=== PATIENT | male | born 1965 | race Caucasian/White ===

== ENCOUNTER 2017-08-21 13:36 | Emergency (ER) | payer BC, SELFPAY ==
[2017-08-21 14:07] VITALS: BP 161/88; PULSE 95; RESP 20; TEMP 37.1; O2SAT 97; BMI 34.1
--- NOTE | 2017-08-21 14:48 | HMH.EDUTC ---
[facility] [place] Disposition Clinical Impression: Sinusitis Qualifiers: Sinusitis location: maxillary Chronicity: acute Recurrence: not specified as recurrent Qualified Code(s): J01.00 - Acute maxillary sinusitis, unspecified Disposition: Home, Self-Care Condition on Discharge: Good Additional Instructions: Meds as ordered Tylenol or ibuprofen as needed for pain or fever Follow-up with primary care this week If symptoms worsen or do not improve return or be seen in the ER Prescriptions: Azithromycin [Zithromax 250mg tab] 250 mg PO DIRECTED #6 tab Fluticasone Propionate [Flonase Allergy Relief NS] 1 spray NS DAILY 14 Days bot Time of Disposition: 14:57 Medical Decision Making Vital Signs: 08/21/17 14:07 Temperature 98.8 F Temperature Source Temporal Artery Scan Pulse Rate [Radial] 95 H Respiratory Rate 20 Blood Pressure [Right Arm] 161/88 Blood Pressure Mean [Right Arm] 112 Blood Pressure Source [Right Arm] Automatic Cuff Blood Pressure Position [Right Arm] Sitting 02 Sat by Pulse Oximetry 97 Oxygen Delivery Method Room Air - Alejo Inquiry Pt receiving controlled substance: No [facility] [place] HPI - General Chief complaint: Urgent Treatment Center Stated complaint: congestion cough sore throat Time Seen by Provider: 08/21/17 14:48 Mode of Arrival: Ambulatory Source of Information: Patient Limitations: No Limitations Description of Symptoms (Recalled from Triage Doc. by RN): PT STATES COUGH AND CONGESTION HEENT Symptoms (Recalled from RN notes): No Resp Symptoms (Recalled from RN notes): No Skin Symptoms (Recalled from RN notes): No MS Symptoms (Recalled from RN notes): No Functional Status (Recalled from RN notes): NA - History of Present Illness Provider Complaint: 89-year-old male presents today for sinus pressure, sinus congestion, and Alanis thick green sputum for a week and a half. - Related Data Previous Rx's Medication Instructions Recorded Azithromycin [Zithromax 250mg 250 mg PO DIRECTED #6 tab 08/21/17 tab] Fluticasone Propionate [Flonase 1 spray NS DAILY 14 Days bot 08/21/17 Allergy Relief NS] Allergies Allergy/AdvReac Type Severity Reaction Status Date / Time No Known Allergies Allergy Verified 08/21/17 14:11 - Worker's Comp Is this a Worker's Comp case?: No [facility] History I have reviewed the patient's past medical history: Yes - *Social History Smoking Status: Current every day smoker Tobacco Type: cigarettes Alcohol Intake: never - Psychiatric History Expresses thoughts of harming self/others: None Suicide Plan Description: No Plan ROS Obtained: Yes All systems reviewed & no additional complaints - Constitutional Constitutional: Reports system reviewed and no additional complaints, except as docu - Eyes Eyes: Reports system reviewed and no additional complaints, except as docu - ENT Ears, Nose, Mouth, and Throat: Reports system reviewed and no additional complaints, except as docu - Cardiovascular Cardiovascular: Reports system reviewed and no additional complaints, except as docu - Respiratory Respiratory: Yes system reviewed and no additional complaints, except as docu, Yes change in phlegm color, Yes chest congestion, Yes cough - Gastrointestinal Gastrointestingal: Reports: system reviewed and no additional complaints, except as docu - Musculoskeletal Musculoskeletal: Reports system reviewed and no additional complaints, except as docu - Integumentary/Breasts Skin/Breast: Reports system reviewed and no additional complaints, except as docu - Neurologic Neurologic: Reports system reviewed and no additional complaints, except as docu - Endocrine Endocrine: Reports system reviewed and no additional complaints, except as docu - Hematologic/Lymphatic Henatologic/Lymphatic: Reports system reviewed and no additional complaints, except as docu - Allergic/Immunologic Allergic/Immunologic: Reports system reviewed and no additional complaints,
--- NOTE | 2017-08-21 14:52 | ED_ITS ---
[facility] [place] Disposition Clinical Impression: Sinusitis Qualifiers: Sinusitis location: maxillary Chronicity: acute Recurrence: not specified as recurrent Qualified Code(s): J01.00 - Acute maxillary sinusitis, unspecified Disposition: Home, Self-Care Condition on Discharge: Good Additional Instructions: Meds as ordered Tylenol or ibuprofen as needed for pain or fever Follow-up with primary care this week If symptoms worsen or do not improve return or be seen in the ER Prescriptions: Azithromycin [Zithromax 250mg tab] 250 mg PO DIRECTED #6 tab Fluticasone Propionate [Flonase Allergy Relief NS] 1 spray NS DAILY 14 Days bot Time of Disposition: 14:57 Medical Decision Making Vital Signs: 08/21/17 14:07 Temperature 98.8 F Temperature Source Temporal Artery Scan Pulse Rate [Radial] 95 H Respiratory Rate 20 Blood Pressure [Right Arm] 161/88 Blood Pressure Mean [Right Arm] 112 Blood Pressure Source [Right Arm] Automatic Cuff Blood Pressure Position [Right Arm] Sitting 02 Sat by Pulse Oximetry 97 Oxygen Delivery Method Room Air - Alejo Inquiry Pt receiving controlled substance: No [facility] [place] HPI - General Chief complaint: Urgent Treatment Center Stated complaint: congestion cough sore throat Time Seen by Provider: 08/21/17 14:48 Mode of Arrival: Ambulatory Source of Information: Patient Limitations: No Limitations Description of Symptoms (Recalled from Triage Doc. by RN): PT STATES COUGH AND CONGESTION HEENT Symptoms (Recalled from RN notes): No Resp Symptoms (Recalled from RN notes): No Skin Symptoms (Recalled from RN notes): No MS Symptoms (Recalled from RN notes): No Functional Status (Recalled from RN notes): NA - History of Present Illness Provider Complaint: 89-year-old male presents today for sinus pressure, sinus congestion, and Alansi thick green sputum for a week and a half. - Related Data Previous Rx's Medication Instructions Recorded Azithromycin [Zithromax 250mg 250 mg PO DIRECTED #6 tab 08/21/17 tab] Fluticasone Propionate [Flonase 1 spray NS DAILY 14 Days bot 08/21/17 Allergy Relief NS] Allergies Allergy/AdvReac Type Severity Reaction Status Date / Time No Known Allergies Allergy Verified 08/21/17 14:11 - Worker's Comp Is this a Worker's Comp case?: No [facility] History I have reviewed the patient's past medical history: Yes - *Social History Smoking Status: Current every day smoker Tobacco Type: cigarettes Alcohol Intake: never - Psychiatric History Expresses thoughts of harming self/others: None Suicide Plan Description: No Plan ROS Obtained: Yes All systems reviewed & no additional complaints - Constitutional Constitutional: Reports system reviewed and no additional complaints, except as docu - Eyes Eyes: Reports system reviewed and no additional complaints, except as docu - ENT Ears, Nose, Mouth, and Throat: Reports system reviewed and no additional complaints, except as docu - Cardiovascular Cardiovascular: Reports system reviewed and no additional complaints, except as docu - Respiratory Respiratory: Yes system reviewed and no additional complaints, except as docu, Yes change in phlegm color, Yes chest congestion, Yes cough - Gastrointestinal Gastrointestingal: Reports: system reviewed and no additional complaints, except as do
== END 2017-08-21 15:27 | disposition home or self-care (01) ==
PROVIDERS: Emergency Provider Nurse Practitioner Family
DX: J01.00 Acute maxillary sinusitis, unspecified (principal); F17.210 Nicotine dependence, cigarettes, uncomplicated
CPT/HCPCS: 99201

== ENCOUNTER 2017-10-03 11:31 | Emergency (ER) | payer BC, SELFPAY ==
[2017-10-03 12:51] VITALS: BP 152/71; PULSE 87; RESP 20; TEMP 36.6; O2SAT 95; BMI 32.8
--- NOTE | 2017-10-03 14:01 | HMH.EDUTC ---
[facility] [place] Disposition Clinical Impression: Upper respiratory virus Disposition: Home, Self-Care Condition on Discharge: Good Instructions: DI for Viral Upper Respiratory Infection -- Adult Additional Instructions: * No sign of bacterial infection. Likely viral. Virus can take 7-14 days to run their course * Nasal Saline to remove nasal drainage and help with nasal congestion. Hard to eat, drink, sleep with nasal congestion so important to keep nose cleaned out * Monitor Temp. Tylenol every 4 hours as needed no more then 5 times a day or 4000mg in 24 hours and/or ibuprofen every 6 hours as needed no more then 3200mg in 24 hours (as long as your primary care doctor has told you that it is ok to take both) for fever/aches/pain. ER if fever no less than 101 despite tylenol and ibuprofen * Encourage fluids, water, gatorade, powerade, pedialyte if /toddler/child * warm salt water gargles * warm fluids * sore throat lozenges * sleep elevated * humidifier/vaporizer * Sudafed over the counter helps with head congestion. * flonase 2 sprays each nostril daily but may take 2-3 days to notice improvement with it. * Continue Nicholas KEBEDE since helping. Referrals: Juanito Cavanaugh [Primary Care Provider] - (IMMEDIATELY for new or worsening symptoms OR no noticeable improvement over the next 48-72 hours. 911 for difficulty breathing or swallowing.) Forms: Work/School Release Time of Disposition: 14:25 Medical Decision Making - Alejo Inquiry Pt receiving controlled substance: No Vital Signs: 10/03/17 12:51 10/03/17 14:23 Temperature 98 F 98 F Temperature Source Temporal Artery Scan Temporal Artery Scan Pulse Rate 87 Pulse Rate [Brachial] 87 Respiratory Rate 20 20 Blood Pressure 152/71 Blood Pressure [Right Arm] 152/71 Blood Pressure Mean [Right Arm] 98 Blood Pressure Source [Right Arm] Automatic Cuff Blood Pressure Position Sitting Blood Pressure Position [Right Arm] Sitting 02 Sat by Pulse Oximetry 95 Oxygen Delivery Method Room Air Room Air - Lab Data Lab results reviewed: Yes: I reviewed the patient's lab results. Lab Results 10/03/17 14:04: Influenza Type A Ag Negative, Influenza Type B Ag Negative [facility] [place] HPI - General Stated complaint: Poss Flu Time Seen by Provider: 10/03/17 14:01 Mode of Arrival: Ambulatory Source of Information: Patient Limitations: No Limitations Description of Symptoms (Recalled from Triage Doc. by RN): 2 days with head congestion, v/d, coughing at night, ribs hurt. HEENT Symptoms (Recalled from RN notes): Yes Resp Symptoms (Recalled from RN notes): Yes Skin Symptoms (Recalled from RN notes): No MS Symptoms (Recalled from RN notes): No Functional Status (Recalled from RN notes): na - History of Present Illness Provider Complaint: c/o I want to make sure not the flu . Cough, head congestion started last night. Worse this morning. Diarrhea and vomited yesterday. Tussin DM helping cough and advil helps aches. No known sick contacts. - Related Data Allergies Allergy/AdvReac Type Severity Reaction Status Date / Time No Known Allergies Allergy Verified 08/21/17 14:11 - Worker's Comp Is this a Worker's Comp case?: No [facility] History I have reviewed the patient's past medical history: Yes Medical History: Denies:: Asthma, Chronic Obstructive Pulmonary Disease (COPD), Diabetes Mellitus Type 1, Diabetes Mellitus Type 2, Hypertension Laterality Cases: Right: Other (elbow) - Social History Smoking Status: Current every day smoker Tobacco Type: cigarettes Alcohol Intake: never - Psychiatric History Expresses thoughts of harming self/others: None Suicide Plan Description: No Plan ROS Obtained: Yes Systems reviewed as appropriate & no additional complaints - Constitutional Constitutional: Reports as per HPI, Denies chills, Reports difficulty sleeping, Denies fever(s), Denies poor appetite - Eyes Eyes: Denies eye discharge, Denies itchy eyes - ENT Ears, Nose, Mouth,
--- NOTE | 2017-10-03 14:04 | ED_ITS ---
[facility] [place] Disposition Clinical Impression: Upper respiratory virus Disposition: Home, Self-Care Condition on Discharge: Good Instructions: DI for Viral Upper Respiratory Infection -- Adult Additional Instructions: * No sign of bacterial infection. Likely viral. Virus can take 7-14 days to run their course * Nasal Saline to remove nasal drainage and help with nasal congestion. Hard to eat, drink, sleep with nasal congestion so important to keep nose cleaned out * Monitor Temp. Tylenol every 4 hours as needed no more then 5 times a day or 4000mg in 24 hours and/or ibuprofen every 6 hours as needed no more then 3200mg in 24 hours (as long as your primary care doctor has told you that it is ok to take both) for fever/aches/pain. ER if fever no less than 101 despite tylenol and ibuprofen * Encourage fluids, water, gatorade, powerade, pedialyte if /toddler/ child * warm salt water gargles * warm fluids * sore throat lozenges * sleep elevated * humidifier/vaporizer * Sudafed over the counter helps with head congestion. * flonase 2 sprays each nostril daily but may take 2-3 days to notice improvement with it. * Continue Nicholas KEBEDE since helping. Referrals: Juanito Cavanaugh [Primary Care Provider] - (IMMEDIATELY for new or worsening symptoms OR no noticeable improvement over the next 48-72 hours. 911 for difficulty breathing or swallowing.) Forms: Work/School Release Time of Disposition: 14:25 Medical Decision Making - Alejo Inquiry Pt receiving controlled substance: No Vital Signs: 10/03/17 12:51 10/03/17 14:23 Temperature 98 F 98 F Temperature Source Temporal Artery Scan Temporal Artery Scan Pulse Rate 87 Pulse Rate [Brachial] 87 Respiratory Rate 20 20 Blood Pressure 152/71 Blood Pressure [Right Arm] 152/71 Blood Pressure Mean [Right Arm] 98 Blood Pressure Source [Right Arm] Automatic Cuff Blood Pressure Position Sitting Blood Pressure Position [Right Arm] Sitting 02 Sat by Pulse Oximetry 95 Oxygen Delivery Method Room Air Room Air - Lab Data Lab results reviewed: Yes: I reviewed the patient's lab results. Lab Results 10/03/17 14:04: Influenza Type A Ag Negative, Influenza Type B Ag Negative [facility] [place] HPI - General Stated complaint: Poss Flu Time Seen by Provider: 10/03/17 14:01 Mode of Arrival: Ambulatory Source of Information: Patient Limitations: No Limitations Description of Symptoms (Recalled from Triage Doc. by RN): 2 days with head congestion, v/d, coughing at night, ribs hurt. HEENT Symptoms (Recalled from RN notes): Yes Resp Symptoms (Recalled from RN notes): Yes Skin Symptoms (Recalled from RN notes): No MS Symptoms (Recalled from RN notes): No Functional Status (Recalled from RN notes): na - History of Present Illness Provider Complaint: c/o I want to make sure not the flu . Cough, head congestion started last night. Worse this morning. Diarrhea and vomited yesterday. Tussin DM helping cough and advil helps aches. No known sick contacts. - Related Data Allergies Allergy/AdvReac Type Severity Reaction Status Date / Time No Known Allergies Allergy Verified 08/21/17 14:11 - Worker's Comp Is this a Worker's Comp case?: No [facility] History I have reviewed the patient's past medical history: Yes Medical History: Denies:: Asthma, Chronic Obstructive Pulmonary Disease (COPD), Diabetes Mellitus Type 1, Diabetes Mellitus Type 2, Hy
[2017-10-03 14:19] LABS: UTC Influenza A Antigen Negative (Negative); UTC Influenza B Antigen Negative (Negative)
[2017-10-03 14:23] VITALS: BP 152/71; PULSE 87; RESP 20; TEMP 36.6; O2SAT 95
== END 2017-10-03 14:28 | disposition home or self-care (01) ==
PROVIDERS: Emergency Provider Nurse Practitioner Family; PCP Internal Medicine
DX: J06.9 Acute upper respiratory infection, unspecified (principal)
CPT/HCPCS: 87804; 99202

== ENCOUNTER → 2021-02-12 08:27 | Outpatient (CLI) | payer BC, SELFPAY ==
--- NOTE | 2021-02-12 | CA_ITS ---
APPROVED REPORT Exam: Exercise Treadmill Technologist: Elizabeth Ramos, Ht: 5 ft 7 in Wt: 193 lbs BSA: 1.99 m2 HR: 72 bpm BP: 144/85 mmHg Medical History Medications: Lisinopril,,,,, CHOLESTEROL MED,,,,, XIGDUOxr,,,,, Stress Test Details Test: [place] HR Resting HR: 87 bpm Max Heart Rate (APMHR): 167.876179 bpm Max HR Achieved: 181 bpm Target HR (85% APMHR): 141.671567 bpm % of APMHR: 108.38 Recovery HR: 114 bpm BP Resting BP: 148/91 mmHg Max BP: 179/92 mmHg Recovery BP: 149.0/86.0 mmHg ECG Clinical Reason for Termination: Fatigue Exercise duration: 09:24 min Highest Stage Achieved: Exercise capacity: 10.1 METs Stress ECG Conclusion 9:24 Minutes 10.1 MET's Max HR 181 % of PM 122 Test stopped due to leg fatigue Symptoms: No CP Arrhythmias/Ectopy: None ST-T Changes: <1.5mm ST Segment changes Conclusion: Negative stress. No imaging Test Summary REST . . . . . . . Protocol changed to Manual Treadmill REST . . . . . . . Sitting REST . . . . . . . Standing REST 03:24 0.0 0.8 87 . 148/ 91 . . Stage 1 . . . . . . . Stage held Stage 1 . . . . . . . Protocol changed to [place] Stage 1 01:00 10.0 1.7 97 . . . . Stage 1 02:00 10.0 1.7 118 . . . . Stage 1 03:00 10.0 1.7 122 . 142/ 92 . . Stage 1 03:20 10.0 1.7 127 . 142/ 92 . . Stage 2 01:00 12.0 2.5 140 . . . . Stage 2 02:00 12.0 2.5 150 . . . . Stage 2 02:49 12.0 2.5 151 . 150/ 90 . . Stage 3 01:00 14.0 3.4 161 . . . . Stage 3 02:00 14.0 3.4 166 . . . . Stage 3 02:51 14.0 3.4 169 . 156/ 92 . . Stage 4 . . . . . . . Stage resumed Stage 4 00:24 16.0 4.2 173 . . . Stop exercise at 09:24 RECOVERY 01:00 0.0 0.0 160 . . . . RECOVERY 02:00 0.0 0.0 134 . . . . RECOVERY 03:00 0.0 0.0 119 . 179/ 92 . . RECOVERY 04:00 0.0 0.0 112 . 149/ 86 . . RECOVERY 04:10 0.0 0.0 108 . 149/ 86 . . Electronically signed by : Avery Pearson, 02/13/2021 15:20:54
== END ==
PROVIDERS: PCP Internal Medicine; Visit Provider Family Medicine
DX: R07.2 Precordial pain (principal); R07.89 Other chest pain; R53.83 Other fatigue
CPT/HCPCS: 93270

== ENCOUNTER → 2021-03-01 09:12 | Outpatient (CLI) | payer BC, SELFPAY ==
[2021-03-01 10:26] LABS: Chol/HDL Ratio 5.3 (1-3.5); Cholesterol 175 mg/dl (140-200); HDL Cholesterol 33 mg/dl (40-60)
[2021-03-01 10:37] LABS: Direct LDL Cholesterol 64.12 mg/dL (100-129)
[2021-03-01 10:47] LABS: Triglycerides 605 mg/dl (30-150)
== END ==
PROVIDERS: Visit Provider Family Medicine
DX: E78.1 Pure hyperglyceridemia (principal)
CPT/HCPCS: 36415; 80061

== ENCOUNTER 2021-03-14 09:42 | Emergency (ER) | payer BC, SELFPAY ==
[2021-03-14 09:43] VITALS: BP 123/75; PULSE 88; RESP 18; TEMP 36.9; O2SAT 97; BMI 30.2
--- NOTE | 2021-03-14 10:00 | XR_ITS ---
PROCEDURE INFORMATION: Exam: XR Chest Exam date and time: 03/14/2021 10:00 AM Age: 55 years old Clinical indication: Cough; Additional info: Cough, fever TECHNIQUE: Imaging protocol: XR of the chest. Views: 2 views. COMPARISON: No relevant prior studies available. FINDINGS: Lungs: Patchy airspace opacities bilaterally, compatible with multifocal pneumonia. Pleural spaces: Unremarkable. No pleural effusion. No pneumothorax. Heart/Mediastinum: Unremarkable. No cardiomegaly. Bones/joints: Unremarkable. IMPRESSION: Patchy airspace opacities bilaterally, compatible with multifocal pneumonia.
[2021-03-14 10:05] VITALS: BP 123/75; PULSE 94; O2SAT 92
[2021-03-14 10:16] VITALS: BP 124/77; PULSE 99; O2SAT 92
--- NOTE | 2021-03-14 10:19 | HMH.EDGENADL ---
ED Disposition Clinical Impression: Pneumonia due to COVID-19 virus Disposition: Home, Self-Care Condition on Discharge: Good Instructions: DI for COVID-19 (Suspected or Confirmed ) Prescriptions: Codeine Phosphate/Guaifenesin [Guaifen-Codeine 100-10 mg/5 ml] 5 ml PO Q6 #150 liquid Transmission Status: Received by [id number] Albuterol Sulfate [Proair Hfa] 1 puff IH Q6 #1 [email or web address] Transmission [facility]: [id number] Referrals: Juanito Ying MD [Primary Care Provider] - - Critical Care Critical Care Time: No Attestation: On 03/14/21, the high probability of a clinically significant, sudden or life threatening deterioration of the following system(s) required my full and direct attention, intervention and personal management. The time I documented below is in addition to time spent performing reported procedures but includes the following listed in this critical care notation. Medical Decision Making - Medical Records Medical records reviewed: Yes: I reviewed the patient's medical records. - Alejo Inquiry Pt receiving controlled substance: No Vital Signs: 03/14/21 09:43 03/14/21 10:05 03/14/21 10:16 Temperature 98.5 F Temperature Source Oral Pulse Rate 94 H 99 H Pulse Rate [Right] 88 Respiratory Rate 18 Blood Pressure 123/75 124/77 Blood Pressure [Right Radial Artery] 123/75 Blood Pressure Mean [Right Radial Artery] 91 02 Sat by Pulse Oximetry 97 92 L 92 L Oxygen Delivery Method Room Air - Lab Data Lab Results 03/14/21 10:32: SARS-CoV-2 (PCR) Detected A, Influenza A Untype (PCR) Not detected, Influenza Type B (PCR) Not detected Orders (Tests/Meds): ED MEDICATIONS Discontinued Medications Generic Name Dose Route Start Last Admin Trade Name Freq PRN Reason Stop Dose Admin Guaifenesin 5 ml 03/14/21 10:00 03/14/21 10:41 Guaifenesin/Dextromethorphan 200mg/20mg 10ml Udc PO 03/14/21 10:01 5 ml ONCE ONE Administration - Radiology Data #1 Image(s): Chest Image Reviewed: Yes I reviewed the patient's radiology results, Yes I reviewed the patient's radiology image, Yes I have reviewed radiologist's interpretation IMPRESSION: Patchy airspace opacities bilaterally, compatible with multifocal pneumonia. - Reevaluation(s) Time: 11:38 Reevaluation #1: Patient did test positive for coronavirus. X-ray is consistent with that. At this time, the patient not having any significant respiratory distress or hypoxia. Maintaining saturations well on room air. Patient will be provided steroid in the emergency department. I did instruct him to follow-up with his PCP for possible monoclonal antibody infusion. Patient needs to quarantine for 10 days per CDC guidelines. He was given strict return precautions for any change in respiratory status or worsening symptoms. Verbalized understanding. Medical Decision Narrative: 55-year-old male presented to the emergency department with some cough and fevers. Given the patient's symptoms, I am concerned for pneumonia or possible upper respiratory infection. Work-up will be initiated. Patient has no evidence of respiratory distress or hypoxia. General Adult HPI - General Chief complaint: Fever Stated complaint: cough Time Seen by Provider: 03/14/21 10:00 Mode of Arrival: Family Vehicle Limitations: No Limitations Description of Symptoms (Recalled from ER Triage Doc. by RN): Patient c/o cough, fever and general mylagia for the last week. Patient denies and abdominal pain, nausea or vomitting. Patient reports he is here today because of the worsening cough. Patient reports he took Motrin prior to arrival. - History of Present Illness HPI narrative: Is a 55-year-old male presented to the emergency department with some fevers, myalgias and cough. Patient states that he has had the symptoms for the last week or so. He states he started having some low-grade fevers of about 1
[2021-03-14 10:35] LABS: Influenza A, PCR Not Detected (NotDetected); Influenza B, PCR Not Detected (NotDetected)
[2021-03-14 11:03] LABS: Coronavirus 19, PCR Detected (NotDetected)
--- NOTE | 2021-03-14 11:07 | PC.NURSE ---
Positive covid results called by cheng bennett and given to PRASHANT ALLEN.
[2021-03-14 11:55] VITALS: BP 103/69; PULSE 77; RESP 20; TEMP 36.9; O2SAT 92
== END 2021-03-14 11:56 | disposition home or self-care (01) ==
PROVIDERS: Emergency Provider Emergency Medicine; PCP Family Medicine
DX: J12.82 Pneumonia due to coronavirus disease 2019 (principal); I10 Essential (primary) hypertension; E78.5 Hyperlipidemia, unspecified; Z79.899 Other long term (current) drug therapy
CPT/HCPCS: 71046; 99282; U0003

== ENCOUNTER → 2021-03-18 09:56 | Outpatient (CLI) | payer BC, SELFPAY ==
[2021-03-22 11:50] LABS: POC Glucose,Bedside 355 (70-110)
[2021-03-22 17:46] LABS: POC Glucose,Bedside 313 (70-110)
[2021-03-22 17:46] LABS: POC Glucose,Bedside 438 (70-110)
[2021-03-23 05:16] LABS: POC Glucose,Bedside 490 (70-110)
[2021-03-23 05:16] LABS: POC Glucose,Bedside 523 (70-110)
[2021-03-23 05:16] LABS: POC Glucose,Bedside 507 (70-110)
[2021-03-23 18:47] LABS: POC Glucose,Bedside 334 (70-110)
[2021-03-23 18:47] LABS: POC Glucose,Bedside 284 (70-110)
[2021-03-25 12:09] LABS: POC Glucose,Bedside 309 (70-110)
== END ==
PROVIDERS: PCP Family Medicine; Visit Provider Nurse Practitioner Family
DX: U07.1 COVID-19 (principal)
CPT/HCPCS: 82962

== ENCOUNTER 2021-03-18 10:29 | Inpatient (IN) | payer BC, SELFPAY ==
[2021-03-18] VITALS (23 sets, daily range): BP systolic 111–134; BP diastolic 60–90; PULSE 80–116; RESP 22–43; TEMP 36.3–37.8; O2SAT 76–95; BMI 30.2; BMI 27.6
--- NOTE | 2021-03-18 10:30 | PC.NURSE ---
PT PRESENTS TO ED FOR REGEN-COV INFUSION. PT TACHYPNEIC & TACHYCARDIC UPON ARRIVAL, INITIAL O2 SAT OF 75% ON ROOM AIR. PT THEN PUT ON 6L NC, WITH INCREASE IN O2 TO 88%. PLACED NON-REBREATHER AT 15L, O2 IMPROVED TO 94%. DR. COSTA NOTIFIED OF PT & CALLED RT FOR VAPOTHERM. RT STATED THEY ARE NOT ALLOWED TO USE VAPOTHERM IN ED DUE TO NO NEGATIVE PRESSURE ROOMS. DR. COSTA MADE AWARE. PT RECEPTED TO ED FOR ADMISSION PER DR. FUENTES.
--- NOTE | 2021-03-18 10:33 | HMH.EDGENADL ---
ED Disposition Clinical Impression: COVID-19, Acute respiratory failure with hypoxia Pneumonia Qualifiers: Pneumonia type: due to unspecified organism Laterality: bilateral Lung location: unspecified part of lung Qualified Code(s): J18.9 - Pneumonia, unspecified organism Disposition: Admitted As Inpatient Condition on Discharge: Fair Time of Disposition: 13:30 - Critical Care Critical Care Time: Yes Attestation: On , the high probability of a clinically significant, sudden or life threatening deterioration of the following system(s) required my full and direct attention, intervention and personal management. The time I documented below is in addition to time spent performing reported procedures but includes the following listed in this critical care notation. Total Critical Care Time: 35 Vital system(s) involved:: Respiratory Failure My critical care processes included: Assessment & monitoring of V/S, Initial and Re-exams, Data Review/Interpretation, Coordinating Care, Medication Orders and management, Documentation Medical Decision Making - Medical Records Medical records reviewed: Yes: I reviewed the patient's medical records. - Alejo Inquiry Pt receiving controlled substance: No Vital Signs: 03/18/21 10:29 03/18/21 10:30 03/18/21 10:35 Temperature 97.3 F L Temperature Source Oral Pulse Rate Pulse Rate [Right] 113 H Respiratory Rate 38 H Blood Pressure Blood Pressure [Right Arm] 127/86 Blood Pressure Mean Blood Pressure Mean [Right Arm] 99 02 Sat by Pulse Oximetry 76 L 88 L 94 L Oxygen Delivery Method Room Air Nasal Cannula Non-Rebreather Oxygen Flow Rate (LPM) 6 15 03/18/21 10:37 03/18/21 10:45 03/18/21 11:00 Temperature Temperature Source Pulse Rate 116 H 115 H 116 H Pulse Rate [Right] Respiratory Rate 32 H 33 H 41 H Blood Pressure 129/90 Blood Pressure [Right Arm] Blood Pressure Mean 98 Blood Pressure Mean [Right Arm] 02 Sat by Pulse Oximetry 94 L 94 L 90 L Oxygen Delivery Method Oxygen Flow Rate (LPM) 03/18/21 11:15 03/18/21 11:30 03/18/21 11:45 Temperature Temperature Source Pulse Rate 110 H 110 H 109 H Pulse Rate [Right] Respiratory Rate 30 H 41 H 32 H Blood Pressure 123/79 Blood Pressure [Right Arm] Blood Pressure Mean 91 Blood Pressure Mean [Right Arm] 02 Sat by Pulse Oximetry 93 L 91 L 91 L Oxygen Delivery Method Non-Rebreather Oxygen Flow Rate (LPM) 15 03/18/21 12:00 03/18/21 12:15 03/18/21 12:30 Temperature Temperature Source Pulse Rate 102 H 105 H Pulse Rate [Right] Respiratory Rate 42 H 40 H 40 H Blood Pressure 125/79 115/82 Blood Pressure [Right Arm] Blood Pressure Mean 93 89 Blood Pressure Mean [Right Arm] 02 Sat by Pulse Oximetry 94 L 93 L Oxygen Delivery Method Oxygen Flow Rate (LPM) 03/18/21 12:45 03/18/21 13:00 03/18/21 13:01 Temperature Temperature Source Pulse Rate 97 H 80 Pulse Rate [Right] Respiratory Rate 43 H 42 H 29 H Blood Pressure 111/61 Blood Pressure [Right Arm] Blood Pressure Mean 79 Blood Pressure Mean [Right Arm] 02 Sat by Pulse Oximetry 81 L Oxygen Delivery Method Oxygen Flow Rate (LPM) - Lab Data Lab results reviewed: Yes: I reviewed the patient's lab results. Lab Results 03/18/21 10:20: WBC 10.2, RBC 5.18, Hgb 16.1, Hct 46.4, MCV 89.6, MCH 31.2, MCHC 34.8, RDW 13.0, Plt Count 210, MPV 8.0, Neut % (Auto) 89.2 H, Lymph % (Auto) 5.7 L, [place] % (Auto) 4.8, Eos % (Auto) 0.0 L, Baso % (Auto) 0.3, Neut # (Auto) 9.1 H, Lymph # (Auto) 0.6 L, [place] # (Auto) 0.5, Eos # (Auto) 0.0, Baso # (Auto) 0.0, Total Counted 100, Neutrophils % (Manual) 86 H, Lymphocytes % (Manual) 9 L, Monocytes % (Manual) 4, Basophils % (Manual) 1.0, Platelet Estimate Normal, RBC Morphology Normal 03/18/21 10:20: Sodium 134 L, Potassium 4.3, Chloride 98, Carbon Dioxide 20 L, Anion Gap 20.3 H, BUN 25 H, Creatinine 0.80, Estimated Creat Clear 132, Es
--- NOTE | 2021-03-18 10:40 | XR_ITS ---
PROCEDURE: XR CHEST PORTABLE CLINICAL HISTORY: SOB Covid19 positive COMPARISON: CR XR CHEST 2V from 03/14/2021 FINDINGS: The cardiomediastinal silhouette and pulmonary vascularity are within normal limits. Ground-glass infiltrate once again noted in the right midlung and left lower lobe and right lower lobe consistent with bilateral Covid19 pneumonia which has progressed since the previous exam. No obvious effusion or pneumothorax. Degenerative changes of the shoulders IMPRESSION: Progression of bilateral multifocal pneumonia Dictated by: Pardeep Bullock MD 03/18/2021 11:18 Pardeep Bullock MD in [facility] 03/18/2021 11:18
--- NOTE | 2021-03-18 10:44 | PC.NURSE ---
SPOKE WITH PHARMAnel MCCONNELL, DO NOT GIVE REGEN-COV INFUSION SINCE PT IS BEING ADMITTED.
[2021-03-18 10:49] LABS: Basophils % 0.3 % (0.1-2.0); Hematocrit 46.4 % (42.0-52.0); Hemoglobin 16.1 g/dL (14.1-18.0); Lymphocytes # 0.6 K/mm3 (0.7-4.5); Lymphocytes % 5.7 % (10-50); Mean Corpuscular HGB Conc 34.8 g/dL (31.8-35.4); Mean Corpuscular Hemoglobin 31.2 pg (27.0-31.2); Mean Corpuscular Volume 89.6 fl (80-94); Monocytes # 0.5 K/mm3 (0.1-1.0); Monocytes % 4.8 % (1.7-9.3); Neutrophils # 9.1 K/mm3 (1.8-7.8); Neutrophils % 89.2 % (37.0-80.0); Platelet Count 210 K/mm3 (142-424); Red Blood Count 5.18 M/mm3 (4.60-6.20); White Blood Count 10.2 K/mm3 (4.8-10.8)
[2021-03-18 10:51] LABS: Chloride 98 mmol/L (98-107); Potassium 4.3 mmoL/L (3.5-5.1); Sodium 134 mmol/L (136-145)
[2021-03-18 10:52] LABS: MANUAL DIFFERENTIAL MANUAL DIFFERENTIAL (MANUAL DIFF)
[2021-03-18 10:53] LABS: Alanine Aminotransferase 24 U/L (12-78); Aspartate Amino Transferase 62 U/L (17-59); Blood Urea Nitrogen 25 mg/dl (9-20); Creatinine Clearance Estimated 132 mL/min (50-200); Estimated Glomerular Filt Rate 101 ml/min (>60); GFR (African American) 122 ML/MIN (>60)
[2021-03-18 10:54] LABS: Albumin Level 3.6 g/dl (3.5-5.0); Alkaline Phosphatase 73 U/L (38-126); Anion Gap 20.3 mEq/L (5-15); Bilirubin,Total 0.9 mg/dl (0.2-1.3); Calcium 8.5 mg/dl (8.4-10.2); Carbon Dioxide 20 mmol/L (22.0-30.0); Globulin 3.5 g/dL (1.3-3.2); Glucose 227 mg/dl (74-100); Total Protein,Serum 7.1 g/dl (6.3-8.2)
[2021-03-18 11:06] LABS: Troponin I 0.03 ng/ml (0.00-0.034)
[2021-03-18 11:11] LABS: Lymphocytes % 9 % (10-50); Monocytes % 4 % (2-9); Neutrophils % 86 % (42-76); Platelet Estimate Normal; RBC Morphology Normal; Total Cells Counted 100
--- NOTE | 2021-03-18 13:07 | PC.NURSE ---
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
--- NOTE | 2021-03-18 13:32 | PC.NURSE ---
IV ABX STARTED, PT TAKEN OFF NRB & PLACED ON 6L NC, WILL CONTINUE TO MONITOR.
--- NOTE | 2021-03-18 13:39 | PC.NURSE ---
PT MAINTAINING 02 AT 92% ON 6L NC, DR. COSTA AWARE & OK WITH.
--- NOTE | 2021-03-18 13:57 | PC.NURSE ---
O2 SATS DOWN TO 85%, NRB PLACED BACK ON PT.
--- NOTE | 2021-03-18 14:25 | PC.NURSE ---
REPORT GIVEN TO RUSSEL.
--- NOTE | 2021-03-18 14:41 | PC.NURSE ---
RUSSEL (PT'S ): [phone] PW: PATTY
--- NOTE | 2021-03-18 14:56 | PC.NURSE ---
Pt placed on vapotherm at this time.
--- NOTE | 2021-03-18 15:11 | HMH.HP ---
*Admission Date: 03/18/21 <Ping Clemente 03/18/21 15:17> *Chief complaint: shortness of breath <Ping Clemente 03/18/21 17:33> *History of present illness: Mr. Vitale is a 55-year-old male with a history of type 2 diabetes, hypertension, and hyperlipidemia. Patient did have a telehealth with Alicia Segovia on 03/16/2021 as a follow-up from an ER visit where he was diagnosed with Covid. He was weak and not eating and had had a dry cough. He was found to have pneumonia and she did set him up for a monoclonal antibody infusion. He presented to the emergency department for the infusion and upon arrival was found to be significantly hypoxic. He required a nonrebreather to maintain appropriate oxygen saturations. He was given Rocephin and Zithromax and admitted for further evaluation and treatment. Repeat chest x-ray did show progression of bilateral multifocal pneumonia. Of note, his has covid as well. <Ping Clemente 03/18/21 17:33> [facility] History I have reviewed the patient's past medical history: Yes <Ping Clemente 03/18/21 15:17> Medical History: Reports:: Diabetes Mellitus Type 2, Hyperlipidemia, Hypertension Denies:: Asthma, Chronic Obstructive Pulmonary Disease (COPD), Diabetes Mellitus Type 1 <Ping Clmeente 03/18/21 15:17> *Have you ever received a pneumonia vaccine?: No <Ping Clemente 03/18/21 15:17> *Have you received a flu vaccine this season?: No <Ping Clemente 03/18/21 15:17> Laterality Cases: Right: Other (ORIF Right Elbow Fracture) <Ping Clemente 03/18/21 15:17> Amputation: No <Ping Clemente 03/18/21 15:17> - *Social History Smoking Status: Current every day smoker <Ping Clemente 03/18/21 15:17> Tobacco Type: cigarettes <Ping Clemente 03/18/21 15:17> # Packs/Day (cigarettes): 1 <Ping Clemente 03/18/21 15:17> Alcohol Intake: never <Ping Clemente 03/18/21 15:17> *Occupational Status:: employed <Ping Clemente 03/18/21 15:17> Housing: house <ChynaPing 03/18/21 15:17> *[facility] in the last 8 weeks: [facility] Family Hx:: Diabetes, Hypertension <JakerajiPing 03/18/21 15:17> Review of Systems - Constitutional Reports body ache(s), Reports fever(s), Reports weakness <JakerajiPign - 03/18/21 17:33> - Eyes Denies blurry vision, Denies double vision [facility]33[facility] - ENT Denies nasal congestion, Denies sore throat <ChynaPing 03/18/21 17:33> - *Cardiovascular Reports shortness of breath, Denies chest pain <JakerajiPing - 03/18/21 17:33> - *Respiratory Reports cough, Reports shortness of breath [facility] - *Gastrointestinal Reports nausea, Denies abdominal pain, Denies loose stools, Denies vomiting <JakerajiPing - 03/18/21 17:33> - *Genitourinary Denies difficulty urinating, Denies painful urination [facility]33[facility] - *Musculoskeletal Reports body aches, Denies joint pain <ChynaPing 03/18/21 17:33> - *Neurologic Reports weakness, Denies headache(s), Denies dizziness <ChynaPing - 03/18/21 17:33> Meds Home Medications Medication Instructions Recorded Confirmed Type Albuterol Sulfate [Proair Hfa] 1 puff IH Q6 #1 hfa.aer.ad 03/14/21 03/18/21 Rx Codeine Phosphate/Guaifenesin 5 ml PO Q6 #150 liquid 03/14/21 03/18/21 Rx [Guaifen-Codeine 100-10 mg/5 ml] Dapagliflozin/Metformin HCl 1 tab PO DAILY 03/18/21 03/18/21 History [Xigduo Xr 10 mg-1,000 mg Tab] lisinopriL [Lisinopril] 10 mg PO BID 03/18/21 03/18/21 History <Juanito Ying - 03/18/21 23:23> Allergies Allergy/AdvReac Type Severity Reaction Status Date / Time No Known Allergies Allergy Verified 03/18/21 14:18 <Juanito Ying - 03/18/21 23:23> Exam Vital signs and Labs for Last 24 Hours: Temp Pulse Resp BP Pulse Ox 98.1 F 84 24 117/75 92 L 03/18/21 20:00 03/18/21 20:00 03/18/21 20:00 03/18/21 20:00 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
--- NOTE | 2021-03-18 16:39 | HMH.PULMCON ---
*Admission Date: 03/18/21 *Reason for consult:: Acute hypoxic respiratory failure, COVID-19 pneumonia *History of present illness: Mr. Vitale is a 55-year-old male never smoker, unvaccinated for COVID-19 pneumonia with a recent diagnosis of COVID-19 pneumonia emergent treatment center, discharged home on further follow-up 3 days later patient on treatment worsening respiratory symptoms presented to the ER during which she was needing high flow nasal cannula to maintain his oxygen saturations and was eventually admitted for further management and pulmonary was consulted [facility] History Medical History: Reports:: Diabetes Mellitus Type 2, Hyperlipidemia, Hypertension Denies:: Asthma, Chronic Obstructive Pulmonary Disease (COPD), Diabetes Mellitus Type 1 *Have you ever received a pneumonia vaccine?: No *Have you received a flu vaccine this season?: No Laterality Cases: Right: Other (ORIF Right Elbow Fracture) Amputation: No - *Social History Smoking Status: Current every day smoker Tobacco Type: cigarettes # Packs/Day (cigarettes): 1 Alcohol Intake: never *Occupational Status:: employed Housing: house Household Members: spouse *Travel in the last 8 weeks: None Family Hx:: Diabetes, Hypertension ROS - Cons Reports anorexia, Reports body ache(s) - Eyes Denies blind spots, Denies blurry vision - Card Reports shortness of breath, Reports shortness of breath with activity, Denies generalized swelling, Denies leg swelling - Resp Respiratory: Reports cough, Reports non-productive cough, Reports dyspnea on exertion, Denies excessive phlegm production, Denies pain on inspiration - GI Gastrointestingal: Denies: abdominal pain - Psych Reports abnormal sleep pattern Meds Home Medications Medication Instructions Recorded Confirmed Type Albuterol Sulfate [Proair Hfa] 1 puff IH Q6 #1 hfa.aer.ad 03/14/21 03/18/21 Rx Codeine Phosphate/Guaifenesin 5 ml PO Q6 #150 liquid 03/14/21 03/18/21 Rx [Guaifen-Codeine 100-10 mg/5 ml] Allergies Allergy/AdvReac Type Severity Reaction Status Date / Time No Known Allergies Allergy Verified 03/18/21 14:18 Exam - Constitutional Constitutional:: Present: no acute distress, comfortable - HENMT Exam HENMT: Present: normocephalic, moist mucous membranes - Eye Exam Eyes:: Present: normal appearance both eyes and related structures - Neck Exam Neck:: Present: normal visual inspection - Respiratory Exam Respiratory:: Present: able to speak in complete sentences, respiratory distress, rales - Cardiovascular Exam Cardiac:: Present: S1, S2 - GI Exam GI:: Present: soft - Skin Exam Skin: Present: warm, no rash - Neurological Exam Neurological: Present: alert, awake, normal cognition - Extremities Exam Extremities: Present: no cyanosis, no clubbing, no edema Internal Medicine - CN: Reslt - Labs CBC & Chem 7: 03/18/21 10:20 03/18/21 10:20 Labs: Short CBC 03/18/21 Range/Units 10:20 WBC 10.2 (4.8-10.8) K/mm3 Hgb 16.1 (14.1-18.0) g/dL Hct 46.4 (42.0-52.0) % Plt Count 210 (142-424) K/mm3 BMP 03/18/21 10:20 Sodium 134 L Potassium 4.3 Chloride 98 Carbon Dioxide 20 L BUN 25 H Creatinine 0.80 Glucose 227 H Calcium 8.5 Cardiac Enzymes 03/18/21 Range/Units 10:20 Troponin I 0.03 (0.00-0.034) ng/ml Liver Function 03/18/21 Range/Units 10:20 Total Bilirubin 0.9 (0.2-1.3) mg/dl AST 62 H (17-59) U/L ALT 24 (12-78) U/L Alkaline Phosphatase 73 (38-126) U/L Albumin 3.6 (3.5-5.0) g/dl Assessment and Plan (1) Pneumonia due to COVID-19 virus Status: Acute Category: Medical Code(s): U07.1 - COVID-19; J12.82 - Pneumonia due to coronavirus disease 2018 (2) Acute respiratory failure with hypoxia Status: Acute Category: Medical Code(s): J96.01 - Acute respiratory failure with hypoxia (3) Type 2 diabetes mellitus Status: Chronic Category: Medical Code(s): E11.9 - Type 2 diabetes
--- NOTE | 2021-03-18 16:43 | CT_ITS ---
PROCEDURE INFORMATION: Exam: CTA Chest With Contrast Exam date and time: 03/18/2021 4:43 PM Age: 55 years old Clinical indication: Patient HX: Hypoxia, covid positive. R/O pe. TECHNIQUE: Imaging protocol: Computed tomographic angiography of the chest with contrast. 3D rendering (Not supervised by radiologist): MIP and/or 3D reconstructed images were created by the technologist. Radiation optimization: All CT scans at this facility use at least one of these dose optimization techniques: automated exposure control; mA and/or kV adjustment per patient size (includes targeted exams where dose is matched to clinical indication); or iterative reconstruction. Contrast material: ISOVUE 370; Contrast volume: 70 ml; Contrast route: INTRAVENOUS (IV); COMPARISON: CR XR CHEST PORTABLE 03/18/2021 10:54 AM FINDINGS: Pulmonary arteries: No evidence of pulmonary embolus to the segmental level. Aorta: Unremarkable. No aortic aneurysm. No aortic dissection. Lungs: Patchy bilateral airspace disease worse in the posterior bases. Pleural spaces: Unremarkable. No pneumothorax. No pleural effusion. Heart: Unremarkable. No cardiomegaly. No pericardial effusion. Mediastinal space: Small hiatal hernia. Lymph nodes: Calcified mediastinal lymph nodes noted. Mildly prominent mediastinal lymph nodes. Liver: Moderate diffuse hypoattenuation in the liver. Bones/joints: Unremarkable. No acute fracture. Soft tissues: Unremarkable. IMPRESSION: 1. No evidence of pulmonary embolus 2. Moderate bilateral patchy airspace disease compatible with infection 3. Evidence of moderate hepatic steatosis
--- NOTE | 2021-03-18 18:32 | PC.NURSE ---
Addendum entered by Mercedes Snyder RN 03/18/21 19:28: med rec completed w/ external med list Original Note: Pt states he takes metformin for his DM2, but is unsure of the dosage.
--- NOTE | 2021-03-18 18:32 | PC.NURSE ---
Pt has done well since arriving to the floor. Speci cup put on pt's bedside table for sputum sample. Pt educated on benefits of incentive spirometer, IS placed at bedside. No other acute changes or complaints, will continue to monitor
[2021-03-18 18:40] LABS: C-Reactive Protein 180.5 mg/L (0-4)
[2021-03-18 19:59] LABS: Ferritin 3340 ng/ml (17.9-464)
[2021-03-18 20:06] LABS: Lactate Dehydrogenase 864 U/L (313-618)
[2021-03-19] VITALS (10 sets, daily range): BP systolic 116–142; BP diastolic 65–82; PULSE 68–80; RESP 18–24; TEMP 36.4–37.2; O2SAT 88–94; BMI 28.6
--- NOTE | 2021-03-19 02:57 | PC.NURSE ---
Pt is currently on Vapotherm 40 L 100%. Pt has slept at intervals this shift. Attempted to titrate vapotherm down to 40L 85% per RT @ 2300. Pt was titrated back up around 0100 due to desat during sleep. Pt noted to desat to upper 80s. VSS at this time. Medications administered per sep. Will continue to monitor.
[2021-03-19 06:32] LABS: Basophils % 0.3 % (0.1-2.0); Hematocrit 37.7 % (42.0-52.0); Lymphocytes # 0.8 K/mm3 (0.7-4.5); Lymphocytes % 11.5 % (10-50); Mean Corpuscular HGB Conc 34.8 g/dL (31.8-35.4); Mean Corpuscular Volume 89.1 fl (80-94); Mean Platelet Volume 8.9 fl (7.4-10.4); Monocytes # 0.3 K/mm3 (0.1-1.0); Neutrophils # 5.6 K/mm3 (1.8-7.8); Neutrophils % 84.2 % (37.0-80.0); Platelet Count 233 K/mm3 (142-424); Red Blood Count 4.23 M/mm3 (4.60-6.20); Red Cell Distribution Width 13.5 % (11.5-17.5); White Blood Count 6.7 K/mm3 (4.8-10.8)
[2021-03-19 06:36] LABS: Hemoglobin 13.1 g/dL (14.1-18.0)
[2021-03-19 06:55] LABS: Blood Urea Nitrogen 25 mg/dl (9-20); Calcium 7.4 mg/dl (8.4-10.2); Carbon Dioxide 24 mmol/L (22.0-30.0); Chloride 102 mmol/L (98-107); Creatinine Clearance Estimated 167 mL/min (50-200); Estimated Glomerular Filt Rate 141 ml/min (>60); GFR (African American) 171 ML/MIN (>60); Glucose 150 mg/dl (74-100); Sodium 136 mmol/L (136-145)
[2021-03-19 06:56] LABS: Alanine Aminotransferase 18 U/L (12-78); Albumin Level 2.8 g/dl (3.5-5.0); Alkaline Phosphatase 58 U/L (38-126); Aspartate Amino Transferase 53 U/L (17-59); Bilirubin,Direct 0.5 mg/dl (0.0-0.4); Bilirubin,Indirect 0.2 mg/dL (0.0-0.9); Bilirubin,Total 0.7 mg/dl (0.2-1.3); Bilirubin,Unconjugated 0.2 mg/dL (0.0-1.1); Total Protein,Serum 5.7 g/dl (6.3-8.2)
--- NOTE | 2021-03-19 08:57 | HMH.PULMPN ---
Internal Medicine - PN: Subj *Date: 03/19/21 *Time: 12:22 Interval history: No acute resp events overnight.Admits improvement in his resp distress Exam - Constitutional Constitutional:: Present: comfortable - HENMT Exam HENMT: Present: normocephalic, atraumatic - Eye Exam Eyes:: Present: normal appearance both eyes and related structures - Respiratory Exam Respiratory:: Present: able to speak in complete sentences, respiratory distress, rales - Cardiovascular Exam Cardiac:: Present: S1, S2 - GI Exam GI:: Present: soft, no hepatosplenomegaly - Skin Exam Skin: Present: warm, no rash, dry - Neurological Exam Neurological: Present: alert, awake, normal cognition - Extremities Exam Extremities: Present: no cyanosis, no clubbing, no edema Assessment and Plan (1) Pneumonia due to COVID-19 virus Status: Acute Category: Medical Code(s): U07.1 - COVID-19; J12.82 - Pneumonia due to coronavirus disease 2019 (2) Acute respiratory failure with hypoxia Status: Acute Category: Medical Code(s): J96.01 - Acute respiratory failure with hypoxia (3) Type 2 diabetes mellitus Status: Chronic Category: Medical Code(s): E11.9 - Type 2 diabetes mellitus without complications (4) Hypertension Status: Chronic Category: Medical Code(s): I10 - Essential (primary) hypertension (5) Hyperlipidemia Status: Chronic Category: Medical Code(s): E78.5 - Hyperlipidemia, unspecified - Assessment and plan all Dx Assessment and Plan for all problems:: #Acute on chronic hypoxic respiratory failure: #COVID-19 pneumonia: Diagnosed with COVID-19 pneumonia presently worsening respiratory distress. CTA performed no evidence of pulmonary embolism, showed bilateral diffuse groundglass opacities prominent right lower lobe consolidation Significant elevated inflammatory markers with CRP at 180.5, ferritin at 3340. Resp distress an O2 requirements improved. HFNC weaned to 80% and at 40L. Contnue to wean as tolerated Plan: Continue awake proning protocol Ceftriaxone and azithromycin along with remdesivir and dexamethasone 6 mg daily Barcitinib daily Sputum culture & nasal MRSA PCR Chemical DVT prophylaxis Thank you for involving pulmonary in this patient care. We will continue to follow.
--- NOTE | 2021-03-19 09:45 | HMH.PHAINT ---
verified home medication list using list from [facility]
--- NOTE | 2021-03-19 09:49 | HMH.PHAVTE ---
[facility] Pharmacy VTE Monitoring - Patient Demographics Admission date: 03/19/21 Report Date: 03/19/21 Time: 09:49 Allergies/Adverse Reactions: Patient Allergies No Known Allergies Allergy (Verified 03/18/21 14:18) Height: 1.7 m Weight: 82.809 kg Patient Problems: Current Active Problems Pneumonia due to COVID-19 virus (Acute) COVID-19 (Acute) Pneumonia (Acute) Acute respiratory failure with hypoxia (Acute) Type 2 diabetes mellitus (Chronic) Hypertension (Chronic) Hyperlipidemia (Chronic) - VTE Risk Labs: VTE Related Lab Results Hgb 13.1 g/dL (14.1-18.0) L D 03/19/21 06:18 Hct 37.7 % (42.0-52.0) L 03/19/21 06:18 Plt Count 233 K/mm3 (142-424) 03/19/21 06:18 BUN 25 mg/dl (9-20) H 03/19/21 05:30 Creatinine 0.60 mg/dl (0.66-1.25) L D 03/19/21 05:30 Estimated Creat Clear 167 mL/min (50-200) 03/19/21 05:30 Clinical Trial Participant: No - Prophylaxis VTE Prophylaxis Ordered?: Yes Types of VTE Prophylaxis: TEDS Knee High, Pharmacological Pharmacologic Type: Enoxaparin
--- NOTE | 2021-03-19 10:05 | HMH.ACPN2 ---
Internal Medicine - PN: Subj *Date: 03/19/21 *Time: 07:30 Interval history: He was able to get some sleep last night. No increased respiratory distress. No increased O2 requirements through the night. Unable to wean Vapotherm thus far. He was able to eat some breakfast. Exam Vital signs and Labs for Last 24 Hours: Temp Pulse Resp BP Pulse Ox 98.0 F 77 22 126/73 93 L 03/19/21 08:00 03/19/21 08:00 03/19/21 08:00 03/19/21 08:00 03/19/21 08:00 Laboratory Results - last 24 hr 03/18/21 10:20: WBC 10.2, RBC 5.18, Hgb 16.1, Hct 46.4, MCV 89.6, MCH 31.2, MCHC 34.8, RDW 13.0, Plt Count 210, MPV 8.0, Neut % (Auto) 89.2 H, Lymph % (Auto) 5.7 L, [place] % (Auto) 4.8, Eos % (Auto) 0.0 L, Baso % (Auto) 0.3, Neut # (Auto) 9.1 H, Lymph # (Auto) 0.6 L, [place] # (Auto) 0.5, Eos # (Auto) 0.0, Baso # (Auto) 0.0, Total Counted 100, Neutrophils % (Manual) 86 H, Lymphocytes % (Manual) 9 L, Monocytes % (Manual) 4, Basophils % (Manual) 1.0, Platelet Estimate Normal, RBC Morphology Normal 03/18/21 10:20: Sodium 134 L, Potassium 4.3, Chloride 98, Carbon Dioxide 20 L, Anion Gap 20.3 H, BUN 25 H, Creatinine 0.80, Estimated Creat Clear 132, Estimated GFR 101, Est GFR ( Amer) 122, Glucose 227 H, Calcium 8.5, Total Bilirubin 0.9, AST 62 H, ALT 24, Alkaline Phosphatase 73, Troponin I 0.03, Total Protein 7.1, Albumin 3.6, Globulin 3.5 H, Albumin/Globulin Ratio 1.0 L 03/18/21 18:15: Ferritin 3340 H, Lactate Dehydrogenase 864 H, C-Reactive Protein 180.5 H 03/19/21 05:30: Sodium 136, Potassium 4.0, Chloride 102, Carbon Dioxide 24, Anion Gap 14.0, BUN 25 H, Creatinine 0.60 L D, Estimated Creat Clear 167, Estimated GFR 141, Est GFR ( Amer) 171 D, Glucose 150 H D, Calcium 7.4 L 03/19/21 05:45: Total Bilirubin 0.7, Direct Bilirubin 0.5 H, Conjugated Bilirubin 0.0, Indirect Bilirubin 0.2, Unconjugated Bilirubin 0.2, AST 53, ALT 18, Alkaline Phosphatase 58, Total Protein 5.7 L, Albumin 2.8 L D 03/19/21 06:18: WBC 6.7 D, RBC 4.23 L, Hgb 13.1 L D, Hct 37.7 L, MCV 89.1, MCH 31.0, MCHC 34.8, RDW 13.5, Plt Count 233, MPV 8.9, Neut % (Auto) 84.2 H, Lymph % (Auto) 11.5, [place] % (Auto) 4.0, Eos % (Auto) 0.0 L, Baso % (Auto) 0.3, Neut # (Auto) 5.6, Lymph # (Auto) 0.8, [place] # (Auto) 0.3, Eos # (Auto) 0.0, Baso # (Auto) 0.0 I & O for Last 24 hours: Intake & Output 03/16/21 03/17/21 03/18/21 03/19/21 11:59 11:59 11:59 11:59 Intake Total 300 / 300 Output Total 1100 / 1100 Balance -800 / -800 Weight 193 lb 182 lb 9 oz Microbiology Reports for the Last 24 Hours: Microbiology 03/18/21 08:10 Sputum - Expectorated Sputum Gram Stain - Final Narrative: Slightly dyspneic with conversation but otherwise no acute distress. Breath sounds are diminished in the bases with few crackles. No wheezes. Abdomen is soft and nondistended with no tenderness. Extremities no edema. Assessment and Plan (1) Pneumonia due to COVID-19 virus Status: Acute Category: Medical Code(s): U07.1 - COVID-19; J12.82 - Pneumonia due to coronavirus disease 2019 (2) Acute respiratory failure with hypoxia Status: Acute Category: Medical Code(s): J96.01 - Acute respiratory failure with hypoxia (3) Type 2 diabetes mellitus Status: Chronic Category: Medical Code(s): E11.9 - Type 2 diabetes mellitus without complications (4) Hypertension Status: Chronic Category: Medical Code(s): I10 - Essential (primary) hypertension (5) Hyperlipidemia Status: Chronic Category: Medical Code(s): E78.5 - Hyperlipidemia, unspecified - Assessment and plan all Dx Assessment and Plan for all problems:: Continue per orders. Will follow with pulmonology.
--- NOTE | 2021-03-19 19:07 | PC.NURSE ---
Pt has rested majority of this shift w. no complaints. Pt is on 40L, 100% fio2 on vapotherm. Scattered wheexing noted per auscultation. Active bowel sounds in all 4 quads, no BM noted this shift. No other acute changes or complaints, will continue to monitor.
[2021-03-20] VITALS (14 sets, daily range): BP systolic 126–172; BP diastolic 76–87; PULSE 62–103; RESP 20–40; TEMP 36.4–37; O2SAT 90–96; BMI 28.8
[2021-03-20 04:49] LABS: Anion Gap 13.3 mEq/L (5-15); Blood Urea Nitrogen 21 mg/dl (9-20); Calcium 7.5 mg/dl (8.4-10.2); Carbon Dioxide 23 mmol/L (22.0-30.0); Chloride 104 mmol/L (98-107); Creatinine Clearance Estimated 200 mL/min (50-200); Estimated Glomerular Filt Rate 174 ml/min (>60); GFR (African American) 210 ML/MIN (>60); Glucose 172 mg/dl (74-100); Potassium 4.3 mmoL/L (3.5-5.1); Sodium 136 mmol/L (136-145)
[2021-03-20 05:05] LABS: Alanine Aminotransferase 17 U/L (12-78); Albumin Level 2.7 g/dl (3.5-5.0); Alkaline Phosphatase 59 U/L (38-126); Aspartate Amino Transferase 67 U/L (17-59); Bilirubin,Direct 0.5 mg/dl (0.0-0.4); Bilirubin,Indirect 0.2 mg/dL (0.0-0.9); Bilirubin,Total 0.7 mg/dl (0.2-1.3); Bilirubin,Unconjugated 0.2 mg/dL (0.0-1.1); Total Protein,Serum 5.8 g/dl (6.3-8.2)
--- NOTE | 2021-03-20 05:33 | PC.NURSE ---
Patient currently on Vapotherm 40L 100% he has had to add the rebreather several times as his O2 sats dropped to the low 80's with slow recovery. With vapotherm & rebreather patient O2 sats usually low to mid 90's. No s/s of acute distress noted this shift; call light within reach, bed at lowest level for safety; will continue to monitor.
--- NOTE | 2021-03-20 08:27 | XR_ITS ---
PROCEDURE INFORMATION: Exam: XR Chest Exam date and time: 03/20/2021 8:27 AM Age: 55 years old Clinical indication: Shortness of breath; Additional info: F/u covid pneumonia TECHNIQUE: Imaging protocol: XR of the chest. Views: 1 view. COMPARISON: CR XR CHEST PORTABLE 03/18/2021 10:54 AM FINDINGS: Lungs: There is worsening of the airspace disease on the right, no change on the left. Pleural spaces: Unremarkable. No pleural effusion. No pneumothorax. Heart/Mediastinum: Unremarkable. No cardiomegaly. Bones/joints: Unremarkable. IMPRESSION: There is worsening of the airspace disease on the right, no change on the left.
--- NOTE | 2021-03-20 08:29 | P.PN_ITS ---
Internal Medicine - PN: Subj *Date: 03/20/21 *Time: 08:29 Interval history: He is not requiring a Ventimask over the Vapotherm at maximum settings and satting in the low 90s. However with minimal exertion quickly desaturates with slow recovery. He denies chest pain. Exam Vital signs and Labs for Last 24 Hours: Temp Pulse Resp BP Pulse Ox 98.2 F 101 H 24 172/87 H 90 L 03/20/21 08:00 03/20/21 08:00 03/20/21 08:00 03/20/21 08:00 03/20/21 08:00 Laboratory Results - last 24 hr 03/20/21 04:00: Sodium 136, Potassium 4.3, Chloride 104, Carbon Dioxide 23, Anion Gap 13.3, BUN 21 H, Creatinine 0.50 L, Estimated Creat Clear 200, Estimated GFR 174, Est GFR ( Amer) 210 D, Glucose 172 H, Calcium 7.5 L 03/20/21 04:00: Total Bilirubin 0.7, Direct Bilirubin 0.5 H, Conjugated Bilirubin 0.0, Indirect Bilirubin 0.2, Unconjugated Bilirubin 0.2, AST 67 H D, ALT 17, Alkaline Phosphatase 59, Total Protein 5.8 L, Albumin 2.7 L I & O for Last 24 hours: Intake & Output 03/17/21 03/18/21 03/19/21 03/20/21 11:59 11:59 11:59 11:59 Intake Total 300 / 300 2160 / 2160 Output Total 1100 / 1100 1350 / 1350 Balance -800 / -800 810 / 810 Weight 193 lb 182 lb 9.001 oz 183 lb 6.793 oz Microbiology Reports for the Last 24 Hours: Microbiology 03/18/21 08:10 Sputum - Expectorated Sputum Gram Stain - Final Narrative: He is dyspneic with conversation. He is alert and oriented. Chest reveals coarse breath sounds with bilateral rales. Abdomen is soft and nondistended with no tenderness. Extremities no edema. Assessment and Plan (1) Pneumonia due to COVID-19 virus Status: Acute Category: Medical Code(s): U07.1 - COVID-19; J12.82 - Pneumonia due to coronavirus disease 2019 (2) Acute respiratory failure with hypoxia Status: Acute Category: Medical Code(s): J96.01 - Acute respiratory failure with hypoxia (3) Type 2 diabetes mellitus Status: Chronic Category: Medical Code(s): E11.9 - Type 2 diabetes mellitus without complications (4) Hypertension Status: Chronic Category: Medical Code(s): I10 - Essential (primary) hypert ension (5) Hyperlipidemia Status: Chronic Category: Medical Code(s): E78.5 - Hyperlipidemia, unspecified - Assessment and plan all Dx Assessment and Plan for all problems:: He is maxed out on the Vapotherm and Ventimask and may soon need mechanical ventilation. We will see how he responds to the duo nebs this morning. Repeat chest x-ray.
--- NOTE | 2021-03-20 17:50 | PC.NURSE ---
HE IS AOX4, ABLE TO MAKE NEEDS KNOWN TO STAFF, HE HAS REQUIRED HIGH FLOW O2 SUPPORT T/O THIS SHIFT, PT WAS PLACED ON BIPAP R/T RAPID RESPIRATORY RATE AND LOW O2. HIS HR ALSO INCREASED INTO THE 120'S WHEN HIS O2 DROPPED. BUT WAS ABLE TO COME OFF FOR LUNCH AND TOLERATED REMAINING ON VAPOTHERM FOLLOWING HIS MEAL. AT THIS TIME VAPOTHERM IS IN PLACE WITH SETTING OF 40LPM @ 100% WITH NON-REBREATHER AT 15LPM PLACED OVERTOP OF THAT, CURRENTLY O2 IS 90%, PT IS NOTED TO BE RESTING IN BED WITH EYES CLOSED. HE DOES DESAT WITH MINIMAL ACTIVITY. PT DID NOT HAVE MUCH OF AN APPETITE THIS SHIFT, NO NEEDS AT THIS TIME.
[2021-03-20 23:06] LABS: POC Glucose,Bedside 234 (70-110)
[2021-03-20 23:06] LABS: POC Glucose,Bedside 287 (70-110)
[2021-03-20 23:06] LABS: POC Glucose,Bedside 235 (70-110)
[2021-03-20 23:06] LABS: POC Glucose,Bedside 195 (70-110)
[2021-03-20 23:06] LABS: POC Glucose,Bedside 317 (70-110)
[2021-03-20 23:06] LABS: POC Glucose,Bedside 201 (70-110)
[2021-03-21] VITALS (12 sets, daily range): BP systolic 115–143; BP diastolic 65–90; PULSE 82–117; RESP 20–45; TEMP 36.3–37; O2SAT 86–96; BMI 28.7
[2021-03-21 07:37] LABS: Chloride 103 mmol/L (98-107); Sodium 139 mmol/L (136-145)
[2021-03-21 07:40] LABS: Alanine Aminotransferase 20 U/L (12-78); Aspartate Amino Transferase 60 U/L (17-59); Bilirubin,Unconjugated 0.5 mg/dL (0.0-1.1); Blood Urea Nitrogen 20 mg/dl (9-20); Carbon Dioxide 24 mmol/L (22.0-30.0); Creatinine Clearance Estimated 201 mL/min (50-200); Estimated Glomerular Filt Rate 174 ml/min (>60); GFR (African American) 210 ML/MIN (>60)
[2021-03-21 07:41] LABS: Albumin Level 2.9 g/dl (3.5-5.0); Alkaline Phosphatase 106 U/L (38-126); Bilirubin,Direct 0.3 mg/dl (0.0-0.4); Bilirubin,Indirect 0.5 mg/dL (0.0-0.9); Bilirubin,Total 0.8 mg/dl (0.2-1.3); Calcium 7.8 mg/dl (8.4-10.2); Glucose 156 mg/dl (74-100); Total Protein,Serum 5.6 g/dl (6.3-8.2)
--- NOTE | 2021-03-21 10:13 | HMH.ACPN2 ---
Internal Medicine - PN: Subj *Date: 03/21/21 *Time: 10:13 Interval history: No acute respiratory events overnight and he rested better. He looks and feels better this morning. He was able to eat some breakfast. He remains on Vapotherm with Ventimask. He used and tolerated BiPAP for short time yesterday morning but sats have remained 90-95% with Vapotherm and mask since then. He was able to eat some breakfast this morning. Exam Vital signs and Labs for Last 24 Hours: Temp Pulse Resp BP Pulse Ox 98.1 F 106 H 24 129/84 91 L 03/21/21 08:00 03/21/21 08:00 03/21/21 08:00 03/21/21 08:00 03/21/21 08:00 Laboratory Results - last 24 hr 03/19/21 16:56: POC Glucose 235 H 03/19/21 22:27: POC Glucose 287 H 03/20/21 05:12: POC Glucose 201 H 03/20/21 11:38: POC Glucose 195 H 03/20/21 16:10: POC Glucose 234 H 03/20/21 21:26: POC Glucose 317 H* 03/21/21 04:45: Sodium 139, Potassium 4.0, Chloride 103, Carbon Dioxide 24, Anion Gap 16.0 H, BUN 20, Creatinine 0.50 L, Estimated Creat Clear 201, Estimated GFR 174, Est GFR ( Amer) 210, Glucose 156 H, Calcium 7.8 L, Total Bilirubin 0.8, Direct Bilirubin 0.3, Conjugated Bilirubin 0.0, Indirect Bilirubin 0.5, Unconjugated Bilirubin 0.5, AST 60 H, ALT 20, Alkaline Phosphatase 106, Total Protein 5.6 L, Albumin 2.9 L I & O for Last 24 hours: Intake & Output 03/18/21 03/19/21 03/20/21 03/21/21 11:59 11:59 11:59 11:59 Intake Total 300 / 300 2160 / 2160 840 / 840 Output Total 1100 / 1100 1350 / 1350 2750 / 2750 Balance -800 / -800 810 / 810 -1910 / -1910 Weight 193 lb 182 lb 9.001 oz 183 lb 6.793 oz 183 lb Microbiology Reports for the Last 24 Hours: Microbiology 03/18/21 08:10 Sputum - Expectorated Sputum Gram Stain - Final 03/18/21 08:10 Sputum - Expectorated Sputum Sputum Culture - Preliminary 03/18/21 18:15 Nose - Nasal MRSA Culture - Final Negative Narrative: He is more alert this morning. No respiratory distress. Chest with coarse breath sounds. Scattered rales. Heart is regular. Abdomen is soft and nondistended with no tenderness. Extremities no edema. Assessment and Plan (1) Pneumonia due to COVID-19 virus Status: Acute Category: Medical Code(s): U07.1 - COVID-19; J12.82 - Pneumonia due to coronavirus disease 2019 (2) Acute respiratory failure with hypoxia Status: Acute Category: Medical Code(s): J96.01 - Acute respiratory failure with hypoxia (3) Type 2 diabetes mellitus Status: Chronic Category: Medical Code(s): E11.9 - Type 2 diabetes mellitus without complications (4) Hypertension Status: Chronic Category: Medical Code(s): I10 - Essential (primary) hypertension (5) Hyperlipidemia Status: Chronic Category: Medical Code(s): E78.5 - Hyperlipidemia, unspecified - Assessment and plan all Dx Assessment and Plan for all problems:: Continue per orders. Spoke to . Will follow with pulmonology.
--- NOTE | 2021-03-21 17:43 | PC.NURSE ---
Patient alert and oriented x 4. Sitting in recliner. Patient states he feels better being out of bed. Patients vitals signs are stable. Pulm-Oxygenation is currently 90% on the vapotherm and nonrebreather. Patient has been encouraged multiple times to use his incentive spirometer, has used it a few times but not consistently or independent of nursing cue's. GI- patients appetite has been diminished, has eaten less than 25% of each meal. Is still currently drinking fluids. No n/v/d. - patient has voided roughly 1000ml of pale yellow urine today. Skin is c/d/i New IV placed today above existing 20g in right ac. Patient was growing frustrated with IV pump alarming when he bent his arm. Issue is now resolved.
[2021-03-22] VITALS (34 sets, daily range): BP systolic 77–147; BP diastolic 33–103; PULSE 96–144; RESP 12–48; TEMP 36.6–37.1; O2SAT 63–97; BMI 28.8
--- NOTE | 2021-03-22 01:46 | XR_ITS ---
PROCEDURE INFORMATION: Exam: XR Chest Exam date and time: 03/22/2021 1:46 AM Age: 55 years old Clinical indication: Device placement; Ett placement (vent status); Additional info: Confirm intubation placement TECHNIQUE: Imaging protocol: XR of the chest. Views: 1 view. COMPARISON: CR XR CHEST PORTABLE 03/20/2021 9:33 AM FINDINGS: Tubes, catheters and devices: Patient is now intubated with the endotracheal tube tip at the martin. Lungs: Lungs demonstrate some interval progression of bilateral diffuse airspace consolidation intervally worsened on the left with silhouetting of the hemidiaphragm now. Cardiac silhouette and pulmonary vascularity are similar allowing for differences in technique. Pleural spaces: Component of pleural effusion may be present. Heart/Mediastinum: See Lungs finding. Bones/joints: Unremarkable. IMPRESSION: Endotracheal tube tip at the martin. Recommend slight withdrawal. Interval worsening of bilateral airspace process is now with silhouetting of the left hemidiaphragm which may represent a component of effusion. Findings were discussed with MARYSE LOVE at 03/22/2021 2:34 AM EDT.
--- NOTE | 2021-03-22 02:13 | HMH.RR ---
Acute Rapid Response Note - Subjective Date Responded: 03/22/21 Time Responded: 01:35 Provider Note: called for covid-19 pt with increased resp and dec sat despite bpap - Objective Findings: Vital Signs - Last 4 Hours Temperature 97.3 F L 03/21/21 15:36 Temperature Source Oral 03/21/21 15:36 Pulse Rate 96 H 03/21/21 23:02 Respiratory Rate 24 03/21/21 15:36 Blood Pressure 143/90 H 03/21/21 15:36 Blood Pressure Mean 107 03/21/21 15:36 Blood Pressure Source Automatic Cuff 03/21/21 15:36 Blood Pressure Position Supine 03/21/21 15:36 02 Sat by Pulse Oximetry 94 L 03/21/21 23:37 Oxygen Delivery Method 03/21/21 23:37 Oxygen Flow Rate (LPM) 40 03/21/21 23:02 My Orders Category Date Time Status Chest XR -- portable [XR chest portable] Stat Exams 03/22/21 01:46 Taken Rapid Response Exam - General General appearance: alert, in distress (Requiring nonrebreather) - Head Head exam: atraumatic - Eye Eye exam: Present: PERRL, EOMI. Absent: scleral icterus - ENT ENT exam: Present: mucous membranes dry - Neck Neck exam: Present: trachea midline - Respiratory Respiratory exam: Present: respiratory distress - Cardiovascular Cardiovascular exam: Present: tachycardia - Abdominal Exam Abdominal exam: Present: soft - Extremities Exam Extremities exam: Present: pedal edema - Neurological Exam Neurological exam: Present: other (obtunded w/o posturing ) - Skin Skin exam: Absent: rash RR Procedures/Assess/Plan - Bedside Intubation Time Out Performed: No Sedative: Versed Mg given: 4 Laryngoscope: Martines Tube size: 7.5 Tube uncuffed: No Secured location: teeth Placement confirmation: visualized tube passing through cords, equal breath sounds bilaterally, confirmation by capnometry Patient tolerated procedure intubation: well Intubation Complications: none - Assessment and plan all Dx Assessment and Plan for all problems:: pt required intubation and cxr showed sl to rt and will be pulled back and possible chf
[2021-03-22 02:46] LABS: Microscopic, Urine URINE MICROSCOPIC (MICROSCOPIC)
[2021-03-22 02:48] LABS: Appearance,Urine CLEAR (Clear); Bilirubin,Urine Negative (Negative); Blood, Urine 1+ (Negative); Color,Urine YELLOW (Yellow); Glucose,Urine (UA) TRACE (Negative); Ketones,Urine 3+ (Negative); Leukocyte Esterase,Urine Negative (Negative); Nitrate,Urine Negative (Negative); Protein,Urine 2+ (Negative); Specific Gravity, Urine >= 1.030 (1.005-1.030); Urobilinogen,Urine 0.2 EU/dl (0.2)
[2021-03-22 02:52] LABS: Amorphous Sediment,Urine 1+ /lpf; Squamous Epithelial Cell,Urine Occasional #/hpf (0-5); WBC,Urine Occasional #/hpf (0-3)
--- NOTE | 2021-03-22 02:58 | PC.NURSE ---
0123: SPOKE WITH DR. FUENTES. INFORMED HIM THAT PATIENT IS TACHYCARDIC, TACHYPNEIC AND THAT ATIVAN HAS NOT HELPED WITH RESPIRATORY EFFORT. INFORMED HIM O2 SAT REMSIN IN THE 60'S ON 100% FIO2 BIPAP. MD STATED TO CALL ED MD AND HAVE HIM INTUBATE PATIENT. 0124: TELMA, RN SPOKE WITH SIGNIFICANT OTHER AND INFORMED HER OF DECLINE IN PATIENT CONDITION AND THAT PATIENT WAS GOING TO BE INTUBATED. 0125: SPOKE WITH DR. LOVE, ED MD, AND INFORMED HIM THAT DR. FUENTES IS REQUESTING THAT HE COME INTUBATE PATIENT. WILL, R.T. NOTIFIED TO COME TO BEDSIDE WELL. 0140: DR. LOVE AT BEDSIDE. PATIENT POSITIONED FOR INTUBATION. 0142: 4MG IVP VERSED GIVEN PER DR. LOVE'S ORDER. 0145: PATIENT INTUBATED WITH 7.5 ETT 27 AT THE TEETH. COLOR CHANGE NOTED IN CO2 DETECTOR AND BILATERAL BREATH SOUNDS AUSCULTATED. STAT PCXR ORDERED. 0150: RADIOLOGY AT BEDSIDE. CXR DONE. 0200: PATIENT PLACED ON VENT WITH SETTINGS FOLLOWS A/C, FIO2:100%, TV:475, RR:20 PEEP:6 0202: PROPOFOL GTT STARTED PER DR. LOVE'S ORDER AT 30MCG/KG/MIN 0210: F/C ANCHORED AT THIS TIME. NG/OG ATTEMPTED BUT UNSUCCESSFUL AT THIS TIME. 0215: MANUAL BP LEFT ARM: 88/60, UNABLE TO OBTAIN MANUAL BP RIGHT ARM DUE TO IV SITES. 0217: PROPOFOL GTT DECREASED TO 10MCG/KG/MIN. DR. LOVE CALLED AND STATED TO PULL TUBE BACK 2 INCHES. ALSO ORDERD 40MGIVP LASIX X1 STAT. 0218: LASIX 40MG IVP GIVEN AT THIS TIME. WILL, R.T. AT BEDSIDE TO ASSIST MOVING TUBE BACK 2 INCHES. TUBE IS NOW 25 AT THE TEETH. 0220: PATIENT'S O2 SAT REMAINS 65-71%. END TIDAL CO2 DETECTOR HOOKED UP AND READING IS 26. PLACED PATIENT ON RIGHT SIDE. LUNG SOUNDS ARE DIMINISHED IN BILATERAL BASES. SCATTERED RHONCHI NOTED IN RIGHT AND LEFT UPPER LOBES. RIGHT UPPER LOBE SLIGHTLY DIMINISHED SOUNDING. 0311: WILL, R.T. AT BEDSIDE TO DRAW POST INTUBATION ABG.
[2021-03-22 03:24] LABS: ABG Base Excess -19.4 mmol/L (-2.4-2.3); ABG HCO3 12.3 mmhg (22.0-26.0); ABG Oxygen Saturation 66 % (90-100); ABG PO2 51.7 mmhg (80-100)
--- NOTE | 2021-03-22 03:29 | PC.NURSE ---
0015: PATIENT INCONTINENT OF URINE. CHANGED PATIENT AT THIS TIME. PATIENT EXTREMELY SOA. BIPAP IN PLACE. PATIENT TACHYPNEIC. INSTRUCTED PATIENT TO SLOW BREATHING.
[2021-03-22 03:37] LABS: Allen's Test Y; Oxygen 100 %; PEEP 8; Tidal Volume 450; Vent Rate 20
[2021-03-22 03:38] LABS: Source L/R
[2021-03-22 03:39] LABS: ABG PCO2 54.5 mmhg (35.0-45.0); ABG PH 6.97 mmol/L (7.35-7.45)
--- NOTE | 2021-03-22 04:37 | PC.NURSE ---
PT WAS TRANSFERRED FROM ICU VIA BED TO [facility] SURG FLOOR W/STAFF AT 7201
--- NOTE | 2021-03-22 05:51 | ECG_ITS ---
APPROVED REPORT Exam: Resting ECG HR:137 bpm ECG Measurements Heart Rate 137 AXES CA 272 P 54 QRSd 138 QRS -53 QT 360 T 44 QTc 543 Conclusion Sinus tachycardia with 1st degree AV block Right bundle branch block Left anterior fascicular block Bifascicular block Inferior infarct, age undetermined Abnormal ECG Electronically signed by : Avery Pearson MD 03/23/2021 12:08:39
[2021-03-22 05:56] LABS: ABG Base Excess -21.7 mmol/L (-2.4-2.3); ABG HCO3 11.7 mmhg (22.0-26.0); ABG Oxygen Saturation 80 % (90-100); ABG PO2 71.9 mmhg (80-100); ABG TCO2 13.7 mmhg (23-27)
[2021-03-22 05:57] LABS: Allen's Test Patient Unable; Oxygen 100% %; Source Right Radial
--- NOTE | 2021-03-22 05:59 | XR_ITS ---
PROCEDURE INFORMATION: Exam: XR Chest Exam date and time: 03/22/2021 5:59 AM Age: 55 years old Clinical indication: Other: Code 500 respiratory arrest; Patient HX: Covid PT intubated code 500 respirtatory arrest TECHNIQUE: Imaging protocol: XR of the chest. Views: 1 view. COMPARISON: CR XR CHEST PORTABLE 03/22/2021 1:53 AM FINDINGS: Tubes, catheters and devices: Endotracheal tube is identified with the tip projecting 2.3 cm above the martin. Lungs: Persistent heterogeneous pulmonary opacities. Pleural spaces: No significant pleural effusion. Heart/Mediastinum: Stable cardiomediastinal silhouette. Bones/joints: Stable osseous structures. IMPRESSION: Endotracheal tube in situ. Persistent heterogeneous pulmonary opacities.
[2021-03-22 06:00] LABS: ABG PCO2 65.7 mmhg (35.0-45.0); ABG PH 6.87 mmol/L (7.35-7.45)
[2021-03-22 06:06] LABS: Basophils # 0.3 K/mm3 (0-0.2); Basophils % 1.3 % (0.1-2.0); Lymphocytes # 2.7 K/mm3 (0.7-4.5); Monocytes # 0.8 K/mm3 (0.1-1.0)
[2021-03-22 06:13] LABS: Eosinophils % 0.1 % (0.1-12.0); Hematocrit 47.5 % (42.0-52.0); Hemoglobin 14.7 g/dL (14.1-18.0); Lymphocytes % 12.3 % (10-50); Mean Corpuscular HGB Conc 30.9 g/dL (31.8-35.4); Mean Corpuscular Hemoglobin 30.9 pg (27.0-31.2); Mean Platelet Volume 10.6 fl (7.4-10.4); Monocytes % 3.7 % (1.7-9.3); Neutrophils # 17.9 K/mm3 (1.8-7.8); Neutrophils % 82.5 % (37.0-80.0); Platelet Count 163 K/mm3 (142-424); Red Blood Count 4.76 M/mm3 (4.60-6.20); Red Cell Distribution Width 13.5 % (11.5-17.5)
[2021-03-22 06:19] LABS: White Blood Count 21.7 K/mm3 (4.8-10.8)
[2021-03-22 06:21] LABS: Chloride 102 mmol/L (98-107); MANUAL DIFFERENTIAL MANUAL DIFFERENTIAL (MANUAL DIFF)
[2021-03-22 06:22] LABS: Sodium 141 mmol/L (136-145)
[2021-03-22 06:24] LABS: Blood Urea Nitrogen 26 mg/dl (9-20)
[2021-03-22 06:25] LABS: Anion Gap 31.7 mEq/L (5-15); Calcium 7.5 mg/dl (8.4-10.2); Carbon Dioxide 14 mmol/L (22.0-30.0); Creatinine Clearance Estimated 56 mL/min (50-200); Estimated Glomerular Filt Rate 40 ml/min (>60); GFR (African American) 48 ML/MIN (>60); Glucose 324 mg/dl (74-100)
--- NOTE | 2021-03-22 06:33 | HMH.RR ---
Acute Rapid Response Note - Subjective Date Responded: 03/22/21 Time Responded: 05:45 Provider Note: code blue - pt had been prev intubated and has v fib and defib with pulse noted and bp - has tachycardia with prob a flutter given bolus cardizam and bicarb as pt was acidosis on abg with cxr showed et tube ok - Objective Findings: Vital Signs - Last 4 Hours Temperature 98.4 F 03/22/21 00:00 Temperature Source Axillary 03/22/21 00:00 Pulse Rate 144 H 03/22/21 02:00 Respiratory Rate 48 H 03/22/21 02:33 Blood Pressure 88/60 L 03/22/21 02:15 Blood Pressure Mean 69 03/22/21 02:15 Blood Pressure Source Manual Cuff/Auscultation 03/22/21 02:15 Blood Pressure Position Supine 03/22/21 02:15 02 Sat by Pulse Oximetry 63 L 03/22/21 02:00 Oxygen Delivery Method 03/22/21 03:00 Oxygen Flow Rate (LPM) 40 03/21/21 23:02 Lab Results for Past 12 Hours 03/22/21 05:57: WBC 21.7 H* D, RBC 4.76, Hgb 14.7, Hct 47.5, MCV 100.0 H, MCH 30.9, MCHC 30.9 L, RDW 13.5, Plt Count 163 D, MPV 10.6 H, Neut % (Auto) 82.5 H, Lymph % (Auto) 12.3, [place] % (Auto) 3.7, Eos % (Auto) 0.1, Baso % (Auto) 1.3, Neut # (Auto) 17.9 H, Lymph # (Auto) 2.7, [place] # (Auto) 0.8, Eos # (Auto) 0.0, Baso # (Auto) 0.3 H 03/22/21 05:51: Specimen Source Right radial, O2 % 100%, ABG pH 6.87 L*, ABG pCO2 65.7 H, ABG pO2 71.9 L, ABG HCO3 11.7 L, ABG Total CO2 13.7 L, ABG O2 Saturation 80 L*, ABG Base Excess -21.7 L, Pardeep Test Patient unable 03/22/21 03:23: Specimen Source L/r, O2 % 100, ABG pH 6.97 L*, ABG pCO2 54.5 H, ABG pO2 51.7 L, ABG HCO3 12.3 L, ABG Total CO2 14.0 L, ABG O2 Saturation 66 L*, ABG Base Excess -19.4 L, Pardeep Test Y, Vent Rate 20, Tidal Volume 450, PEEP 8 03/22/21 02:15: Urine Color Yellow, Urine Appearance Clear, Urine pH 6.0, Ur Specific [place] >= 1.030, Urine Protein 2+, Urine Glucose (UA) Trace, Urine Ketones 3+, Urine Blood 1+, Urine Nitrate Negative, Urine Bilirubin Negative, Urine Urobilinogen 0.2, Ur Leukocyte Esterase Negative, Urine RBC 3-5, Urine WBC Occasional, Ur Squamous Epith Cells Occasional, Amorphous Sediment 1+ My Orders Category Date Time Status Chest XR -- portable [XR chest portable] Stat Exams 03/22/21 01:46 Completed XR chest portable Stat Exams 03/22/21 05:59 Taken Basic Metabolic Panel Stat Lab 03/22/21 05:57 Received Complete Blood Count Auto Diff Stat Lab 03/22/21 05:57 Results Troponin I Stat Lab 03/22/21 05:57 Received UA [Urinalysis and Microscopic] Stat Lab 03/22/21 02:15 Completed ABG [Arterial Blood Gas] Stat RT 03/22/21 02:37 Ordered Arterial Blood Gas Stat RT 03/22/21 05:51 Completed ECG Request by /Sony Stat Y 03/22/21 05:51 Ordered - Radiology Findings #1 Xray Reviewed: Chest Image Reviewed: Yes I reviewed the patient's radiology image ED XR Results: Abnormal (covid-19 with et tube ) - ECG Data Tracing #1 Arrhythmias present: aflutter Ischemic changes: non-specific ST-T wave changes Rapid Response Exam - General General appearance: in distress (Requiring nonrebreather) - Head Head exam: atraumatic - Eye Eye exam: Present: other (pupils midpt but no reaction ) - ENT ENT exam: Present: other (intubated ) - Neck Neck exam: Present: trachea midline - Respiratory Respiratory exam: Present: respiratory distress, other (intubated ) - Cardiovascular Cardiovascular exam: Present: tachycardia - Abdominal Exam Abdominal exam: Present: soft - Extremities Exam Extremities exam: Present: pedal edema - Neurological Exam Neurological exam: Present: other (obtunded w/o posturing ) RR Procedures/Assess/Plan - Additional Bedside Procedures Arterial blood draw: Yes (abg) (1) Cardiac arrhythmia Status: Acute Qualifiers: Arrhythmia type: ventricular fibrillation Qualified Code(s): I49.01 - Ventricular fibrillation - Assessment and plan all Dx Assessment and Plan for all problems:: covid-19 pt with cardiac arrest with arrthymia and resp failure
[2021-03-22 06:35] LABS: Potassium 6.7 mmoL/L (3.5-5.1)
[2021-03-22 06:40] LABS: Troponin I 2.95 ng/ml (0.00-0.034)
[2021-03-22 06:45] LABS: Lymphocytes % 8 % (10-50); Monocytes % 4 % (2-9); Neutrophils % 76 % (42-76); Platelet Estimate Normal; Total Cells Counted 100
[2021-03-22 06:46] LABS: Hypochromasia 1+; Macrocytosis 1+
--- NOTE | 2021-03-22 07:42 | PC.NURSE ---
0440: report given to jeanne gu rn.
--- NOTE | 2021-03-22 07:42 | PC.NURSE ---
AT APPRX 0640, RECTAL TEMP TAKEN. 99.4. PT HR WENT INTO THE 30S, O2 SAT DECREASING. NARCAN GIVEN AT 0643 BY S CALL RN. PT BECAME PULSELESS AT THIS TIME. CPR STARTED AT 0645. 1 GM OF EPI GIVEN AT 0646. CHEST COMPRESSIONS ALSO HANDED OFF AT THIS TIME. SECOND GRAM OF EPI GIVEN AT 0648. SECOND NARCAN DOSE ADMINISTERED AFTER. PULSE AND RHYTHM CHECKED AT THIS TIME. RHYTHM V-TAC AT THIS TIME. PT SHOCKED ONCE AT 0549. PULSE REGAINED AT 0550. MD LOVE ORDERED AT THIS TIME (0550): ABG, 12 LEAD EKG, ABG, CBC, CMP, AND TROPONIN. LABS COLLECTED BY 0553. ORDERED PORTABLE CHEST XRAY AT THIS TIME. 0556- ORDERED 10MG CARTIZEM. DOSE GIVEN AT 0559. 0600-2MG BICARB ORDERED AND ADMINISTERED. MD READING CHEST XRAY AT THIS TIME. 0604- PT HAS STABILIZED AT THIS TIME. PULSE PRESENT, O2 SAT 99%.
--- NOTE | 2021-03-22 07:53 | PC.NURSE ---
0545: SPOKE WITH SIGNIFICANT OTHER AND INFORMED HER THAT PATIENT WAS CRITICAL AND THAT IF SHE WANTED TO SEE THE PATIENT WE WOULD PROVIDE PPE TO VISIT WITH HIM. SHE VERBALIZED UNDERSTANDING.
--- NOTE | 2021-03-22 08:10 | HMH.ACPN2 ---
Internal Medicine - PN: Subj *Date: 03/22/21 *Time: 08:10 Interval history: Overnight events reviewed. He is now intubated and moved to step-down unit and on the ventilator. Dr. Estes aware of events and Dr. Maurice consulted for cardiology evaluation. Exam Vital signs and Labs for Last 24 Hours: Temp Pulse Resp BP Pulse Ox 98.8 F 96 H 26 H 129/55 L 85 L 03/22/21 18:00 03/22/21 19:00 03/22/21 20:28 03/22/21 19:00 03/22/21 20:28 Laboratory Results - last 24 hr 03/21/21 11:37: POC Glucose 252 H 03/22/21 02:15: Urine Color Yellow, Urine Appearance Clear, Urine pH 6.0, Ur Specific [place] >= 1.030, Urine Protein 2+, Urine Glucose (UA) Trace, Urine Ketones 3+, Urine Blood 1+, Urine Nitrate Negative, Urine Bilirubin Negative, Urine Urobilinogen 0.2, Ur Leukocyte Esterase Negative, Urine RBC 3-5, Urine WBC Occasional, Ur Squamous Epith Cells Occasional, Amorphous Sediment 1+ 03/22/21 03:23: Specimen Source L/r, O2 % 100, ABG pH 6.97 L*, ABG pCO2 54.5 H, ABG pO2 51.7 L, ABG HCO3 12.3 L, ABG Total CO2 14.0 L, ABG O2 Saturation 66 L*, ABG Base Excess -19.4 L, Pardeep Test Y, Vent Rate 20, Tidal Volume 450, PEEP 8 03/22/21 05:51: Specimen Source Right radial, O2 % 100%, ABG pH 6.87 L*, ABG pCO2 65.7 H, ABG pO2 71.9 L, ABG HCO3 11.7 L, ABG Total CO2 13.7 L, ABG O2 Saturation 80 L*, ABG Base Excess -21.7 L, Pardeep Test Patient unable 03/22/21 05:57: Total Bilirubin 1.6 H, Direct Bilirubin 1.6 H, Conjugated Bilirubin 0.5 H, Indirect Bilirubin 0.0, Unconjugated Bilirubin 0.0, Alkaline Phosphatase 121, Total Protein 5.3 L, Albumin 2.6 L D 03/22/21 05:57: WBC 21.7 H* D, RBC 4.76, Hgb 14.7, Hct 47.5, MCV 100.0 H, MCH 30.9, MCHC 30.9 L, RDW 13.5, Plt Count 163 D, MPV 10.6 H, Neut % (Auto) 82.5 H, Lymph % (Auto) 12.3, [place] % (Auto) 3.7, Eos % (Auto) 0.1, Baso % (Auto) 1.3, Neut # (Auto) 17.9 H, Lymph # (Auto) 2.7, [place] # (Auto) 0.8, Eos # (Auto) 0.0, Baso # (Auto) 0.3 H, Total Counted 100, Neutrophils % (Manual) 76, Band Neutrophils % 12.0 H, Lymphocytes % (Manual) 8 L, Monocytes % (Manual) 4, Platelet Estimate Normal, Hypochromasia 1+, Macrocytosis 1+ 03/22/21 05:57: Sodium 141, Potassium 6.7 H* D, Chloride 102, Carbon Dioxide 14 L, Anion Gap 31.7 H, BUN 26 H D, Creatinine 1.80 H D, Estimated Creat Clear 56, Estimated GFR 40 L, Est GFR ( Amer) 48 L D, Glucose 324 H, Calcium 7.5 L, Troponin I 2.95 H 03/22/21 09:22: Specimen Source Left radial, O2 % 100, ABG pH 7.02 L*, ABG pCO2 40.7, ABG pO2 71.3 L, ABG HCO3 10.4 L, ABG Total CO2 11.6 L, ABG O2 Saturation 87 L*, ABG Base Excess -20.5 L, Pardeep Test Patient unable, Vent Rate 20, Tidal Volume 450, PEEP 8 03/22/21 13:30: D-Dimer 6.30 H 03/22/21 13:30: APTT 39.5 H 03/22/21 17:55: APTT 46.9 H 03/22/21 21:04: Random Glucose 567 H* I & O for Last 24 hours: Intake & Output 03/20/21 03/21/21 03/22/21 03/23/21 11:59 11:59 11:59 11:59 Intake Total 2160 / 2160 840 / 840 2980 / 2980 55.277 / 55.277 Output Total 1350 / 1350 2750 / 2750 1200 / 1200 Balance 810 / 810 -1910 / -1910 1780 / 1780 55.277 / 55.277 Weight 183 lb 6.793 oz 183 lb 184 lb 183 lb 13.848 oz Microbiology Reports for the Last 24 Hours: Microbiology 03/18/21 08:10 Sputum - Expectorated Sputum Gram Stain - Final 03/18/21 08:10 Sputum - Expectorated Sputum Sputum Culture - Final Normal Respiratory Rossi Narrative: Sedated on the ventilator. Chest with rhonchi, no wheezes. Heart regular. Extremities with no edema. Assessment and Plan (1) Pneumonia due to COVID-19 virus Status: Acute Category: Medical Code(s): U07.1 - COVID-19; J12.82 - Pneumonia due to coronavirus disease 2019 (2) Acute respiratory failure with hypoxia Status: Acute Category: Medical Code(s): J96.01 - Acute respiratory failure with hypoxia (3) On mechanically assisted ventilation Status: Acute Category: Medical Code(s): Z99.11 - Dependence on respirator [ventilator] status (4) Cardiac arrhyth
--- NOTE | 2021-03-22 08:20 | PC.NURSE ---
Late entry: He was intubated in the ICU and transferred to the med surg floor. Vent settings are as follows: TV 450, PEEP 12, R 20. and [id number]. He was intubated with a 7.5 ETT. F/c present but no urine present in catheter. He was noted to be diaphoretic. There was difficulty obtaining his O2 after arrival to the floors. Sats were -25%. He was sinus tach on telemetry. While trying to obtain a rectal temp as his HOB started to be lowered it was noted that his HR was decreasing to the 30s. Crash cart was moved to near room. At 0545-code blue was called. See Lyudmila Valentine RNquality assurance test program manager for code. A pulse was noted during code and he was placed back on the ventilator. 0607-Dr. Estes notified of code and current VS. New orders received for bicarb gtt. He ordered 3 amps of bicarb in 1000mL 0.9% NS IV @ 100mL/hr, rate on vent to be increased to 24, deep sedate and do not let him over breathe the vent, 1 LTR IV NS bolus then levophed gtt IV and titrate to goal of MAP 65. 0637-Was notified by lab of critical values: k+ 6.7 and troponin 2.95. Name and birthdate read back and verified. Dr. Ying notified and ordered for cardiology to be consulted. 0643-Dr. Maurice consulted and updated on patient. Pt's pulse decreasing to 30s and 40s while on the phone. He ordered for an amp of epi to be given IV and that ept gtt IV may be used if needed. Report was given to Kelsy Ott RN. When updating the family it was noted that the propofol was empty and the pump was flashing but not beeping. Pump then started to beep and family pushed silence button. He was noted to have a respiratory rate of 46. Family was educated not to press silence on when alarms beep because that notifies staff that medication needs to be refilled and patient is to remain deep sedated. Family verbalized understanding.
--- NOTE | 2021-03-22 09:28 | CA_ITS ---
APPROVED REPORT EXAM: Comprehensive 2D, Doppler, and color-flow Echocardiogram Chief Deputy Coroner: Marybel Judd CRT Ht: 5 ft 6 in Wt: 184lbs BSA: 1.93 BP: 88/60 mmHg Indications: Covid+ , intubated, post code, smoker, HTN,HLD, A flutter 2D Dimensions LVOT 1.99 cm (M/F) 1.5-2.5 M-Mode Dimensions RVDd 4.18 cm (0.9-2.6) LA Diam 3.30 cm (1.9-4.0) LVDd 3.68 cm (3.5-5.7) Ao Diam 3.82 cm (2.0-3.7) LVDs 2.74 cm (3.5-5.7) IVSd 1.70 cm (0.6-1.1) PWd 1.30 cm (0.6-1.1) EF (Teich) 51.20% FS 25.50% EDV (Teich) 57.40 mL ESV (Teich) 28.00 mL LV Diastology E Decel Time 150.00 (160-240 msec) E/A Ratio 0.81 Aortic Valve AO Peak GR. 2.50 mmHg Mitral Valve MV E Max Ezequiel. 31.00 (40-130 cm/s) MV A Velocity 39.00 (40-130 cm/s) E/A Ratio 0.81 MV Decel. Time 150.00 (160-240 ms) MV PHT 44.00 ms Pulmonary Valve PV Peak Velocity 82.00 (50-150 cm/s) Tricuspid Valve TR P. Velocity 156.00 cm/s RAP Estimate 10.00 mmHg RVSP 19.80 mmHg Left Ventricle Technically very difficult study because of the patient's factors and poor acoustic windows. Valvular structures and right-sided chambers are not well visualized. Left atrium is mildly enlarged, left ventricle is normal size, mild concentric left ventricular hypertrophy, visually estimated ejection fraction is probably 50%, there is abnormal septal motion. Diastolic parameters are inconclusive. Right Ventricle Right atrium and right ventricle appears to be moderately enlarged, contractility of the right ventricle appears to be reduced. Aortic Valve Aortic valve is not well visualized, there is no obvious aortic stenosis. There is no aortic insufficiency. Mitral Valve Mitral valve is minimally thickened, there is mild mitral regurgitation. Tricuspid Valve Tricuspid valve is poorly visualized, there is no significant tricuspid regurgitation noted in the study to calculate right ventricular systolic pressure. Pulmonic Valve Pulmonic valve is poorly visualized. Great Vessels Aortic root is normal size. Inferior vena cava is dilated without significant inspiratory collapse. Pericardium No significant pericardial effusion noted. Conclusion 1. Technically very difficult and poor study as described above. The valvular structures as well as a right-sided chambers are not well visualized. 2. Normal left ventricular size, visually estimated ejection fraction 50%, there is abnormal septal motion. Diastolic parameters are inconclusive. 3. Moderately enlarged right ventricle with reduced contractility. 4. No significant pericardial effusion noted. Inferior vena cava is dilated without significant inspiratory collapse. Electronically signed by : Yonis Spencer MD 03/23/2021 06:28:54
--- NOTE | 2021-03-22 09:29 | HMH.CNCARD ---
History of Present Illness Consult date: 03/22/21 Requesting physician: Juanito Ying Chief complaint: cardiac arrest History of present illness: This is a 55-year-old white gentleman who was admitted to the hospital with COVID-19. He does have a history of hypertension, hyperlipidemia and type 2 diabetes. The patient was treated by Alicia Segovia via a telehealth visit on 03/16/2001 as a follow-up from an ER visit where he was diagnosed with Covid. The patient was really weak and had not been eating much and also had an associated dry cough. He was found to have pneumonia and set up to have the outpatient monoclonal antibody infusion. When the patient arrived to the emergency department for the monoclonal antibody infusion he was found to be significantly hypoxic. He required a nonrebreather to maintain his oxygen saturations. The patient was subsequently admitted to the hospital for this. The patient did end up on BiPAP and had respiratory distress and was subsequently intubated and mechanically ventilated. Following his intubation with mechanical ventilation the patient had a CODE BLUE. He went into ventricular fibrillation and was defibrillated with return of his pulse and blood pressure. Following his defibrillation he was tachycardic with what appeared to be atrial flutter. He was given an IV Cardizem bolus and bicarb. His pH was 6.87. The patient remains sedated this morning on the ventilator. He appears to be in no significant distress. He does remain hypotensive maxed out on a Levophed drip. He has no urine output. He does not appear to be in any pain. [facility] History I have reviewed the patient's past medical history: Yes Medical History: Reports:: Diabetes Mellitus Type 2, Hyperlipidemia, Hypertension Denies:: Asthma, Chronic Obstructive Pulmonary Disease (COPD), Diabetes Mellitus Type 1 *Have you ever received a pneumonia vaccine?: No *Have you received a flu vaccine this season?: No Laterality Cases: Right: Other (ORIF Right Elbow Fracture) Amputation: No - *Social History Smoking Status: Current every day smoker Tobacco Type: cigarettes # Packs/Day (cigarettes): 1 Alcohol Intake: never *Occupational Status:: employed Housing: house Household Members: spouse *Travel in the last 8 weeks: None Family Hx:: Diabetes, Hypertension Meds Home Medications Medication Instructions Recorded Confirmed Type Albuterol Sulfate [Proair Hfa] 1 puff IH Q6 #1 hfa.aer.ad 08/22/21 08/26/21 Rx Codeine Phosphate/Guaifenesin 5 ml PO Q6 #150 liquid 03/14/21 03/18/21 Rx [Guaifen-Codeine 100-10 mg/5 ml] Dapagliflozin/Metformin HCl 1 tab PO DAILY 03/18/21 03/18/21 History [Xigduo Xr 10 mg-1,000 mg Tab] lisinopriL [Lisinopril] 10 mg PO DAILY 03/18/21 03/19/21 History icosapent ethyL [Icosapent Ethyl] 2 gm PO BID 03/19/21 03/19/21 History Allergies Allergy/AdvReac Type Severity Reaction Status Date / Time No Known Allergies Allergy Verified 03/18/21 14:18 Exam Vital signs and Labs for Last 24 Hours: Temp Pulse Resp BP Pulse Ox 98.1 F 124 H 42 H 105/54 L 84 L 03/22/21 04:00 03/22/21 06:56 03/22/21 05:00 03/22/21 06:56 03/22/21 06:56 Laboratory Results - last 24 hr 03/22/21 02:15: Urine Color Yellow, Urine Appearance Clear, Urine pH 6.0, Ur Specific Bre[place] >= 1.030, Urine Protein 2+, Urine Glucose (UA) Trace, Urine Ketones 3+, Urine Blood 1+, Urine Nitrate Negative, Urine Bilirubin Negative, Urine Urobilinogen 0.2, Ur Leukocyte Esterase Negative, Urine RBC 3-5, Urine WBC Occasional, Ur Squamous Epith Cells Occasional, Amorphous Sediment 1+ 03/22/21 03:23: Specimen Source L/r, O2 % 100, ABG pH 6.97 L*, ABG pCO2 54.5 H, ABG pO2 51.7 L, ABG HCO3 12.3 L, ABG Total CO2 14.0 L, ABG O2 Saturation 66 L*, ABG Base Excess -19.4 L, Pardeep Test Y, Vent Rate 20, Tidal Volume 450, PEEP 8 03/22/21 05:51: Specimen Source Right radial, O2 % 100%, ABG pH 6.87 L*, ABG pCO2 65.7 H, ABG pO2 71.9 L, ABG HCO3 11.7 L, ABG Total CO2
--- NOTE | 2021-03-22 10:21 | CA_ITS ---
APPROVED REPORT Bilateral Lower Extremity Venous Study for DVT. Meter Inspector: CT Indications rule out dvt, Covid + Risk Factors Bed Rest Current Smoker Vein Imaging CFV (R): compressive, spontaneous, phasic, augmentation SFJ (R): compressive, spontaneous, phasic, augmentation FEM (R): compressive, spontaneous, phasic, augmentation POP (R): compressive, spontaneous, phasic, augmentation DFV (R): compressive, spontaneous, phasic, augmentation PTV (R): compressive, spontaneous, phasic, augmentation GSV (R): Difficult to image SSV (R): Not Visualized Peroneals (R):compressive, spontaneous, phasic, augmentation GAS (R): compressive, spontaneous, phasic, augmentation CFV (L): compressive, spontaneous, phasic, augmentation SFJ (L): compressive, spontaneous, phasic, augmentation FEM (L): compressive, spontaneous, phasic, augmentation POP (L): Partially Compressible DFV (L): compressive, spontaneous, phasic, augmentation PTV (L): Partially Compressible GSV (L): Partially Compressible SSV (L): Not Visualized Peroneals (L):difficult to image GAS (L): Partially Compressible Findings RLE negative for DVT/SVT. LLE Positive for DVT + for DVT in popliteal, calf, Posterior Tibial veins. Conclusion RLE negative for DVT/SVT. LLE Positive for DVT + for DVT in popliteal, calf, Posterior Tibial veins. Critical Notification Critical Value: Yes Date: 03/22/2021 Time: 12:27 Report Read Back Electronically signed by : Pardeep Bullock MD 03/22/2021 15:09:07
[2021-03-22 10:26] LABS: ABG Base Excess -20.5 mmol/L (-2.4-2.3); ABG HCO3 10.4 mmhg (22.0-26.0); ABG Oxygen Saturation 87 % (90-100); ABG PCO2 40.7 mmhg (35.0-45.0); ABG PO2 71.3 mmhg (80-100); ABG TCO2 11.6 mmhg (23-27)
[2021-03-22 10:28] LABS: Allen's Test Patient Unable; Oxygen 100 %; PEEP 8; Source Left Radial; Tidal Volume 450; Vent Rate 20
[2021-03-22 10:30] LABS: ABG PH 7.02 mmol/L (7.35-7.45)
--- NOTE | 2021-03-22 12:11 | HMH.PULMPN ---
Internal Medicine - PN: Subj *Date: 03/22/21 *Time: 12:11 Interval history: Patient respiratory significantly worsened significantly worsened over the weekend needing intubation and mechanical ventilatory support. Exam - Constitutional Constitutional:: Absent: no acute distress, comfortable - HENMT Exam HENMT: Present: atraumatic - Neck Exam Neck:: Present: normal visual inspection - Respiratory Exam Respiratory:: Present: respiratory distress, crackles - Cardiovascular Exam Cardiac:: Present: S1, S2 - GI Exam GI:: Present: soft, no hepatosplenomegaly - Neurological Exam Intubated and sedated - Extremities Exam Extremities: Present: no cyanosis, no clubbing, edema Assessment and Plan (1) Cardiac arrhythmia Status: Acute Qualifiers: Arrhythmia type: ventricular fibrillation Qualified Code(s): I49.01 - Ventricular fibrillation Category: Medical Code(s): I49.9 - Cardiac arrhythmia, unspecified (2) Hypotension Status: Acute Category: Medical Code(s): I95.9 - Hypotension, unspecified (3) Acute respiratory failure with hypoxia Status: Acute Category: Medical Code(s): J96.01 - Acute respiratory failure with hypoxia (4) COVID-19 Status: Acute Category: Medical Code(s): U07.1 - COVID-19 (5) Pneumonia due to COVID-19 virus Status: Acute Category: Medical Code(s): U07.1 - COVID-19; J12.82 - Pneumonia due to coronavirus disease 2019 (6) Hyperlipidemia Status: Chronic Category: Medical Code(s): E78.5 - Hyperlipidemia, unspecified (7) Hypertension Status: Chronic Category: Medical Code(s): I10 - Essential (primary) hypertension (8) Type 2 diabetes mellitus Status: Chronic Category: Medical Code(s): E11.9 - Type 2 diabetes mellitus without complications - Assessment and plan all Dx Assessment and Plan for all problems:: #Acute on chronic hypoxic respiratory failure: #COVID-19 pneumonia: Diagnosed with COVID-19 pneumonia presented with worsening respiratory distress. CTA on admission performed no evidence of pulmonary embolism, showed bilateral diffuse groundglass opacities prominent right lower lobe consolidation Significant elevated inflammatory markers with CRP at 180.5, ferritin at 3340. Patient clinical status significantly deteriorated over the course needing intubation and mechanical ventilatory support. Patient also noted to be in profound shock needing to pressors with a recent blood gas showing significant metabolic acidosis with a lactate of 15. His sputum culture admission grew normal respiratory michael. Nasal MRSA PCR negative. Blood gas from this monitor pH of 7.02 with a PCO2 40.7 consistent significant metabolic acidosis with an elevated lactate. Plan: - Repeat blood cultures and initiate vancomycin and Zosyn for possible sepsis. Eventhough this patient was admitted for COVID-19 pneumonia and hypoxic respiratory failure his profound shock cannot be completely explained by COVID 19 unless he is having cytokine storm. Follow with cardiology recommendations continue pressors with map goal of greater than 65. -F/U Tracheal aspirate - f/U D-Dimer - Continue mechanical ventilatory support - Continue AnalgoSedation with Propofol and Fentanyl with CPOT gal less than or euqal to 2 and RASS goal of 0 to 1 (Deep sedation) - VAP bundle Elevate head of the bed at 30 to 45 degrees Oral care with chlorhexidne GI ulcer prophylaxis - Famotidine 20mg IV BID Chemical DVT prophylaxis Thank you for involving pulmonary in this patient care. We will continue to follow.
[2021-03-22 14:00] LABS: Activated Partial Thrombo Time 39.5 seconds (22.8-30.6)
--- NOTE | 2021-03-22 15:02 | HMH.PHAHEP ---
<Filipe Lau - Last Filed: 03/23/21 08:48> [facility] Pharmacy Heparin Dosing - Demographic Data Allergies/Adverse Reactions: Allergies Allergy/AdvReac Type Severity Reaction Status Date / Time No Known Allergies Allergy Verified 03/18/21 14:18 - Indication Patient Problems: Current Active Problems Pneumonia due to COVID-19 virus (Acute) COVID-19 (Acute) Pneumonia (Acute) Acute respiratory failure with hypoxia (Acute) Type 2 diabetes mellitus (Chronic) Hypertension (Chronic) Hyperlipidemia (Chronic) Cardiac arrhythmia (Acute) Hypotension (Acute) On mechanically assisted ventilation (Acute) - Labs Anticoagulation Lab Results:: 03/23/21 03/23/21 00:30 05:50 Hgb 12.0 L D 11.3 L Hct 36.3 L 34.1 L Plt Count 87 L D 76 L - Monitoring Dose Monitor 2 Time: 14:55 PTT Result:: 46.9 Infusion Rate:: RATE INCREASED TO 1650 U/HR = 33 ML/HR PLT 87 Dose Monitor 3 Date: 03/22/21 Time: 23:15 PTT Result:: 48.9 Infusion Rate:: BOLUS 3000 UNITS, THEN INCREASE RATE TO 1800 U/HR = 36 ML/HR Dose Monitor 4 Date: 03/23/21 Time: 01:39 Infusion Rate:: INFUSION D/C DUE TO LOW PLT COUNT. - Core Measures Is INR > or = 2 at discharge?: No Most Recent Labs:: Laboratory Results - last 24 hr 03/21/21 11:37: POC Glucose 252 H 03/22/21 05:57: Total Bilirubin 1.6 H, Direct Bilirubin 1.6 H, Conjugated Bilirubin 0.5 H, Indirect Bilirubin 0.0, Unconjugated Bilirubin 0.0, AST 3402 H* D, ALT 1273 H*, Alkaline Phosphatase 121, Total Protein 5.3 L, Albumin 2.6 L D 03/22/21 09:22: Specimen Source Left radial, O2 % 100, ABG pH 7.02 L*, ABG pCO2 40.7, ABG pO2 71.3 L, ABG HCO3 10.4 L, ABG Total CO2 11.6 L, ABG O2 Saturation 87 L*, ABG Base Excess -20.5 L, Pardeep Test Patient unable, Vent Rate 20, Tidal Volume 450, PEEP 8 03/22/21 13:30: D-Dimer 6.30 H 03/22/21 13:30: APTT 39.5 H 03/22/21 17:55: APTT 46.9 H 03/22/21 21:04: Random Glucose 567 H* 03/22/21 22:30: Random Glucose 578 H* 03/22/21 23:15: APTT 48.9 H 03/22/21 23:44: POC Glucose 507 H* 03/22/21 23:49: Specimen Source Left radial, O2 % 100, ABG pH 7.23 L*, ABG pCO2 46.1 H, ABG pO2 48.9 L, ABG HCO3 19.0 L, ABG Total CO2 20.4 L, ABG O2 Saturation 78 L*, ABG Base Excess -8.6 L, Pardeep Test Patient unable, Vent Rate 24, Tidal Volume 450, PEEP 14 03/22/21 23:55: Random Glucose 574 H* 03/23/21 00:30: WBC 15.6 H D, RBC 3.87 L, Hgb 12.0 L D, Hct 36.3 L, MCV 93.8, MCH 30.9, MCHC 32.9, RDW 14.1, Plt Count 87 L D, MPV 11.3 H, Neut % (Auto) 93.2 H, Lymph % (Auto) 2.5 L, [place] % (Auto) 2.9, Eos % (Auto) 0.4, Baso % (Auto) 1.1, Neut # (Auto) 14.5 H, Lymph # (Auto) 0.4 L, [place] # (Auto) 0.5, Eos # (Auto) 0.1, Baso # (Auto) 0.2, Total Counted 100, Neutrophils % (Manual) 95 H, Lymphocytes % (Manual) 5 L, Platelet Estimate Slight decrease, RBC Morphology Normal 03/23/21 00:30: Sodium 139, Potassium 4.0 D, Chloride 99, Carbon Dioxide 20 L, Anion Gap 24.0 H, BUN 54 H D, Creatinine 3.20 H D, Estimated Creat Clear 31, Estimated GFR 20 L, Est GFR ( Amer) 25 L D, Glucose 569 H* D, Calcium 4.9 L* D 03/23/21 00:46: POC Glucose 497 H* 03/23/21 01:27: Blood Type Confirm O Positive 03/23/21 01:32: Blood Type O Positive 03/23/21 01:32: Random Glucose 552 H* 03/23/21 01:37: POC Glucose 528 H* 03/23/21 02:38: POC Glucose 545 H* 03/23/21 02:47: Random Glucose 520 H* 03/23/21 05:12: POC Glucose 469 H* 03/23/21 05:50: WBC 14.3 H, RBC 3.60 L, Hgb 11.3 L, Hct 34.1 L, MCV 94.6 H, MCH 31.4 H, MCHC 33.2, RDW 14.0, Plt Count 76 L, MPV 11.7 H, Neut % (Auto) 93.7 H, Lymph % (Auto) 3.0 L, [place] % (Auto) 2.8, Eos % (Auto) 0.1, Baso % (Auto) 0.5, Neut # (Auto) 13.4 H, Lymph # (Auto) 0.4 L, [place] # (Auto) 0.4, Eos # (Auto) 0.0, Baso # (Auto) 0.1, Total Counted 100, Neutrophils % (Manual) 95 H, Band Neutrophils % 1.0, Lymphocytes % (Manual) 3 L, Monocytes % (Manual) 1 L, Platelet Estimate Moderate decrease, RBC Morphology Normal 03/23/21 05:50: APTT 41.0 H 03/23/21 05:50: Sodium 141, Potassium 3.6, Chlo
[2021-03-22 16:19] LABS: POC Glucose,Bedside 252 (70-110)
--- NOTE | 2021-03-22 16:25 | DIET.NUTRFU ---
Addendum entered by Radhika Steel 03/24/21 13:15: Pt remains intubated/sedated, day 4 NPO. K stabilized but remains with significant electrolyte disturbances, low MAP, and severely elevated liver enzymes. Recommend continuing NaBicarb/D5. If pt continues with significant lab disturbances and BP issues over next 48h, TPN may be indicated, otherwise recommend enteral nutrition. Weight is up 24# past 48h indicating fluid retention. BG mostly moderate but he had some significant hyperglycemia yesterday >500. No BM since 03/22. Original Note: Pt was intubated early this am, remains intubated/sedated and in critical condition. MAP<60, Critical K of 6.7. Do not recommend enteral nutrition until these labs are stabilized. Will monitor and make TF recommendations as indicated/appropriate. He is receiving kcal from significant propofol and receiving IVF. Weight stable, BG high- avg. 250, normal bowel function. Pt has been provided with diet edu for nutritional considerations COVID recovery and DM for dc.
[2021-03-22 18:30] LABS: Activated Partial Thrombo Time 46.9 seconds (22.8-30.6)
--- NOTE | 2021-03-22 19:16 | PC.NURSE ---
Pt has had to be bagged multiple times within the past two hours due to desatting.
[2021-03-22 21:08] LABS: Bilirubin, Conjugated 0.5 mg/dL (0.0-0.3)
[2021-03-22 21:09] LABS: Albumin Level 2.6 g/dl (3.5-5.0); Alkaline Phosphatase 121 U/L (38-126); Bilirubin,Direct 1.6 mg/dl (0.0-0.4); Bilirubin,Total 1.6 mg/dl (0.2-1.3); Total Protein,Serum 5.3 g/dl (6.3-8.2)
[2021-03-22 21:21] LABS: Glucose,Random 567 mg/dL (74-100)
[2021-03-22 21:57] LABS: Alanine Aminotransferase 1273 U/L (12-78)
[2021-03-22 22:51] LABS: Glucose,Random 578 mg/dL (74-100)
[2021-03-22 22:51] LABS: Aspartate Amino Transferase 3402 U/L (17-59)
--- NOTE | 2021-03-22 23:20 | PC.NURSE ---
Pts saturations not improving, PEEP turned to [address] Estes.
[2021-03-22 23:47] LABS: Activated Partial Thrombo Time 48.9 seconds (22.8-30.6)
[2021-03-23] VITALS (37 sets, daily range): BP systolic 91–126; BP diastolic 31–60; PULSE 92–118; RESP 24–30; TEMP 36.6–37.3; O2SAT 81–100
--- NOTE | 2021-03-23 00:01 | XR_ITS ---
PROCEDURE INFORMATION: Exam: XR Chest Exam date and time: 03/23/2021 12:01 AM Age: 55 years old Clinical indication: Other: Decreased sats; Patient HX: Intubated, covid TECHNIQUE: Imaging protocol: XR of the chest. Views: 1 view. COMPARISON: CR XR CHEST PORTABLE 03/22/2021 6:00 AM FINDINGS: Worsening ground-glass opacity involving the right mid to lower lung. Stable retrocardiac opacity. No pleural effusion or pneumothorax. Stable ET tube. No other changes. IMPRESSION: Worsening ground-glass opacity involving the right mid to lower lung. No other changes.
[2021-03-23 00:04] LABS: ABG Base Excess -8.6 mmol/L (-2.4-2.3); ABG Oxygen Saturation 78 % (90-100); ABG PCO2 46.1 mmhg (35.0-45.0); ABG PH 7.23 mmol/L (7.35-7.45); ABG TCO2 20.4 mmhg (23-27)
[2021-03-23 00:05] LABS: Oxygen 100 %; PEEP 14; Tidal Volume 450; Vent Rate 24
[2021-03-23 00:06] LABS: ABG PO2 48.9 mmhg (80-100); Allen's Test Patient Unable; Source Left Radial
[2021-03-23 00:32] LABS: Glucose,Random 574 mg/dL (74-100)
[2021-03-23 00:40] LABS: MANUAL DIFFERENTIAL MANUAL DIFFERENTIAL (MANUAL DIFF)
[2021-03-23 00:42] LABS: Basophils # 0.2 K/mm3 (0-0.2); Basophils % 1.1 % (0.1-2.0); Eosinophils # 0.1 K/mm3 (0.0-0.4); Eosinophils % 0.4 % (0.1-12.0); Hematocrit 36.3 % (42.0-52.0); Lymphocytes # 0.4 K/mm3 (0.7-4.5); Lymphocytes % 2.5 % (10-50); Mean Corpuscular HGB Conc 32.9 g/dL (31.8-35.4); Mean Corpuscular Hemoglobin 30.9 pg (27.0-31.2); Mean Corpuscular Volume 93.8 fl (80-94); Mean Platelet Volume 11.3 fl (7.4-10.4); Monocytes # 0.5 K/mm3 (0.1-1.0); Monocytes % 2.9 % (1.7-9.3); Neutrophils # 14.5 K/mm3 (1.8-7.8); Neutrophils % 93.2 % (37.0-80.0); Platelet Count 87 K/mm3 (142-424); Red Blood Count 3.87 M/mm3 (4.60-6.20); Red Cell Distribution Width 14.1 % (11.5-17.5); White Blood Count 15.6 K/mm3 (4.8-10.8)
[2021-03-23 00:51] LABS: Blood Urea Nitrogen 54 mg/dl (9-20); Carbon Dioxide 20 mmol/L (22.0-30.0); Chloride 99 mmol/L (98-107); Creatinine Clearance Estimated 31 mL/min (50-200); Estimated Glomerular Filt Rate 20 ml/min (>60); GFR (African American) 25 ML/MIN (>60); Sodium 139 mmol/L (136-145)
[2021-03-23 01:05] LABS: Glucose 569 mg/dl (74-100)
[2021-03-23 01:06] LABS: Calcium 4.9 mg/dl (8.4-10.2)
--- NOTE | 2021-03-23 01:15 | PC.NURSE ---
Pt saturations not improving, increased Peep to [address] Estes.
[2021-03-23 01:45] LABS: Lymphocytes % 5 % (10-50); Neutrophils % 95 % (42-76); Total Cells Counted 100
[2021-03-23 01:46] LABS: Platelet Estimate Slight Decrease; RBC Morphology Normal
[2021-03-23 02:15] LABS: Glucose,Random 552 mg/dL (74-100)
[2021-03-23 03:26] LABS: Glucose,Random 520 mg/dL (74-100)
[2021-03-23 05:16] LABS: POC Glucose,Bedside 507 (70-110)
[2021-03-23 05:16] LABS: POC Glucose,Bedside 497 (70-110)
[2021-03-23 06:22] LABS: Basophils # 0.1 K/mm3 (0-0.2); Basophils % 0.5 % (0.1-2.0); Eosinophils % 0.1 % (0.1-12.0); Hematocrit 34.1 % (42.0-52.0); Hemoglobin 11.3 g/dL (14.1-18.0); Lymphocytes # 0.4 K/mm3 (0.7-4.5); Mean Corpuscular HGB Conc 33.2 g/dL (31.8-35.4); Mean Corpuscular Hemoglobin 31.4 pg (27.0-31.2); Mean Corpuscular Volume 94.6 fl (80-94); Mean Platelet Volume 11.7 fl (7.4-10.4); Monocytes # 0.4 K/mm3 (0.1-1.0); Monocytes % 2.8 % (1.7-9.3); Neutrophils # 13.4 K/mm3 (1.8-7.8); Neutrophils % 93.7 % (37.0-80.0); Platelet Count 76 K/mm3 (142-424); White Blood Count 14.3 K/mm3 (4.8-10.8)
[2021-03-23 06:24] LABS: MANUAL DIFFERENTIAL MANUAL DIFFERENTIAL (MANUAL DIFF)
[2021-03-23 06:25] LABS: Chloride 102 mmol/L (98-107); Potassium 3.6 mmoL/L (3.5-5.1); Sodium 141 mmol/L (136-145)
[2021-03-23 06:28] LABS: Albumin/Globulin Ratio 0.9 (1.1-1.8); Alkaline Phosphatase 174 U/L (38-126); Anion Gap 20.6 mEq/L (5-15); Bilirubin,Total 2.2 mg/dl (0.2-1.3); Blood Urea Nitrogen 58 mg/dl (9-20); Carbon Dioxide 22 mmol/L (22.0-30.0); Globulin 2.3 g/dL (1.3-3.2); Total Protein,Serum 4.3 g/dl (6.3-8.2)
[2021-03-23 06:34] LABS: Creatinine Clearance Estimated 29 mL/min (50-200); Estimated Glomerular Filt Rate 18 ml/min (>60); GFR (African American) 22 ML/MIN (>60)
[2021-03-23 07:06] LABS: POC Glucose,Bedside 469 (70-110)
[2021-03-23 07:06] LABS: POC Glucose,Bedside 545 (70-110)
[2021-03-23 07:06] LABS: POC Glucose,Bedside 528 (70-110)
[2021-03-23 07:06] LABS: POC Glucose,Bedside 447 (70-110)
[2021-03-23 07:44] LABS: Lymphocytes % 3 % (10-50); Monocytes % 1 % (2-9); Neutrophils % 95 % (42-76); Platelet Estimate Moderate Decrease; RBC Morphology Normal; Total Cells Counted 100
[2021-03-23 08:06] LABS: Glucose 457 mg/dl (74-100)
[2021-03-23 08:15] LABS: ABG Base Excess -6.4 mmol/L (-2.4-2.3); ABG HCO3 21.7 mmhg (22.0-26.0); ABG Oxygen Saturation 85 % (90-100); ABG PO2 58.5 mmhg (80-100); ABG TCO2 23.4 mmhg (23-27)
--- NOTE | 2021-03-23 08:16 | PC.NURSE ---
Late entry: His O2 keep decreasing at the beginning of the shift. Respiratory had to ventilate him several times r/t sats decreasing into the 70s. His HOB is elevated. He is being turned and repositioned q 2 hours. Oral care provided. He is voiding per f/c. Poor urine output noted. At shift change it was reported from previous nurse that Natalie Vitale wanted his doctor to call her [facility]. Attempted to page at 2012 and 2051. 2116-Spoke with Dr. Cerda and informed him of Natalie Vitale' wishes. Also reported critical glucose 523. He ordered humalog 15units subcutaneous once. 2120-Name and date of verified. Ela from lab called with critical glucose 567. 2121-Dr. Estes paged in regards to decreasing O2 and increased respirations of 30. Plan to request versed for sedation. 2124-Spoke with Dr. Cerda and obtained order for Versed 4mg IV once for sedation. 2149-Dr. Estes returned call and stated to start on versed gtt and to wean propofol. He stated is he desats to increase PEEP 14 and if after 30 mins if sats do not increase to get an ABG and chest x-ray. 2155-spoke with Carol at [facility]. She stated to mix versed was to mix 50mg in 40mL 0.9% NS. Start at 14.7mL/hr and max rate was 0.15mg/kg/hr which was 12mg/hr for him. 2224-FSBS 507-stat glucose ordered [id number] 2322-[facility] notified of GCS 3T and new accounts representative stated that Xena will call back 234-FSBS 507-state glucose ordered. Levophed switched to be mixed in NS. 2350 Spoke with state at [facility]; he stated to administer heparin at 1800 units/hr and give 3000 unit bolus. 1-Xena with [facility] returned call and stated that they were not going to follow, family may withdrawal care if they decide to and to call back with time of . 9-Chest xray and ABG. Darren red blood was noted to be coming out of patients mouth when he was leaned forward to place board behind him for x-ray. 30-Name and date of verified. Ela from lab called with critical glucose 574 3-Dr. Estes notified of critical pH 7.23, O2 sat 78, and about blood coming from his mouth and how it happened. 0104-Dr. Estes staed to hold heparin, most recent PTT 48.9, and to hold heparin until AM. 0107-Name and date of verified. Ela/Napoleon from lab called with critical glucose 569, critical calcium 4.9 0109-Dr. Cerda notified that patient's k+ was 4.0 with scheduled kayexelate in morning. He stated d/c kayexelate. Informed if darren red blood coming from patient's mouth. PLT decreased for 163 to 87, and critical glucose. He ordered to d/c heparin and to type and cross 1 unit of platelets and to transfuse 1 unit. Lab notified of this and stated the would have to get from [facility]. 0120-Natalie Vitale called and notified about blood coming from patient's mouth, his decrease in platelets and consent was obtained to transfuse unit of platelets. 0129-Dr. Cerda called and stated to give calcioum 500mg slowly over 10 mins. He placed order in computer. 0144-Spoke with Carol at [facility] to get appropriate rate for calcium chloride. Doctor stated to infuse slowly yet rate would need to be fast to infuse over 10 mins. She stated to infuse over 30mins and to start at rate of 200mL/hr. 0200-#22 was placed in his left hand. 0214 Name and date of verified. Ela from lab called with critical glucose 552. 0238- FSBS 545-stat glucose obtained. 0339-Dr. Cerda notified of continued critical glucose. Received order to give Lantus 10 units subcutaneous once.
[2021-03-23 08:19] LABS: Oxygen 100 %; PEEP 16; Source L FEMORAL; Tidal Volume 450; Vent Rate 24
[2021-03-23 08:20] LABS: ABG PCO2 57.4 mmhg (35.0-45.0)
[2021-03-23 09:07] LABS: Alanine Aminotransferase 4033 U/L (12-78)
--- NOTE | 2021-03-23 09:15 | HMH.ACPN2 ---
Internal Medicine - PN: Subj *Date: 03/23/21 *Time: 09:15 Interval history: Respiratory status and blood pressure fairly stable overnight. He was noted with some bleeding in his platelet count decreased and heparin drip was stopped. Minimal urine output overnight. Exam Vital signs and Labs for Last 24 Hours: Temp Pulse Resp BP Pulse Ox 97.8 F 108 H 26 H 105/45 L 96 03/23/21 17:00 03/23/21 18:45 03/23/21 18:45 03/23/21 18:45 03/23/21 18:45 Laboratory Results - last 24 hr 03/22/21 05:57: AST 3402 H* D, ALT 1273 H* 03/22/21 22:30: Random Glucose 578 H* 03/22/21 23:15: APTT 48.9 H 03/22/21 23:44: POC Glucose 507 H* 03/22/21 23:49: Specimen Source Left radial, O2 % 100, ABG pH 7.23 L*, ABG pCO2 46.1 H, ABG pO2 48.9 L, ABG HCO3 19.0 L, ABG Total CO2 20.4 L, ABG O2 Saturation 78 L*, ABG Base Excess -8.6 L, Pardeep Test Patient unable, Vent Rate 24, Tidal Volume 450, PEEP 14 03/22/21 23:55: Random Glucose 574 H* 03/23/21 00:30: WBC 15.6 H D, RBC 3.87 L, Hgb 12.0 L D, Hct 36.3 L, MCV 93.8, MCH 30.9, MCHC 32.9, RDW 14.1, Plt Count 87 L D, MPV 11.3 H, Neut % (Auto) 93.2 H, Lymph % (Auto) 2.5 L, [place] % (Auto) 2.9, Eos % (Auto) 0.4, Baso % (Auto) 1.1, Neut # (Auto) 14.5 H, Lymph # (Auto) 0.4 L, [place] # (Auto) 0.5, Eos # (Auto) 0.1, Baso # (Auto) 0.2, Total Counted 100, Neutrophils % (Manual) 95 H, Lymphocytes % (Manual) 5 L, Platelet Estimate Slight decrease, RBC Morphology Normal 03/23/21 00:30: Sodium 139, Potassium 4.0 D, Chloride 99, Carbon Dioxide 20 L, Anion Gap 24.0 H, BUN 54 H D, Creatinine 3.20 H D, Estimated Creat Clear 31, Estimated GFR 20 L, Est GFR ( Amer) 25 L D, Glucose 569 H* D, Calcium 4.9 L* D 03/23/21 00:46: POC Glucose 497 H* 03/23/21 01:27: Blood Type Confirm O Positive 03/23/21 01:32: Blood Type O Positive 03/23/21 01:32: Random Glucose 552 H* 03/23/21 01:37: POC Glucose 528 H* 03/23/21 02:38: POC Glucose 545 H* 03/23/21 02:47: Random Glucose 520 H* 03/23/21 05:12: POC Glucose 469 H* 03/23/21 05:50: WBC 14.3 H, RBC 3.60 L, Hgb 11.3 L, Hct 34.1 L, MCV 94.6 H, MCH 31.4 H, MCHC 33.2, RDW 14.0, Plt Count 76 L, MPV 11.7 H, Neut % (Auto) 93.7 H, Lymph % (Auto) 3.0 L, [place] % (Auto) 2.8, Eos % (Auto) 0.1, Baso % (Auto) 0.5, Neut # (Auto) 13.4 H, Lymph # (Auto) 0.4 L, [place] # (Auto) 0.4, Eos # (Auto) 0.0, Baso # (Auto) 0.1, Total Counted 100, Neutrophils % (Manual) 95 H, Band Neutrophils % 1.0, Lymphocytes % (Manual) 3 L, Monocytes % (Manual) 1 L, Platelet Estimate Moderate decrease, RBC Morphology Normal 03/23/21 05:50: APTT 41.0 H 03/23/21 05:50: Sodium 141, Potassium 3.6, Chloride 102, Carbon Dioxide 22, Anion Gap 20.6 H, BUN 58 H, Creatinine 3.50 H, Estimated Creat Clear 29, Estimated GFR 18 L*, Est GFR ( Amer) 22 L, Glucose 457 H*, Calcium 5.0 L*, Total Bilirubin 2.2 H, AST 06542 H*, ALT 4033 H*, Alkaline Phosphatase 174 H, Total Protein 4.3 L, Albumin 2.0 L D, Globulin 2.3, Albumin/Globulin Ratio 0.9 L 03/23/21 06:59: POC Glucose 447 H* 03/23/21 07:57: POC Glucose 392 H* 03/23/21 08:03: Specimen Source L femoral, O2 % 100, ABG pH 7.20 L*, ABG pCO2 57.4 H, ABG pO2 58.5 L, ABG HCO3 21.7 L, ABG Total CO2 23.4, ABG O2 Saturation 85 L*, ABG Base Excess -6.4 L, 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, Vent Rate 24, Tidal Volume 450, PEEP 16 03/23/21 09:02: POC Glucose 381 H* 03/23/21 09:52: POC Glucose 400 H* 03/23/21 10:59: POC Glucose 355 H* 03/23/21 11:49: POC Glucose 299 H 03/23/21 13:14: POC Glucose 304 H* 03/23/21 13:20: Ammonia < 9 L 03/23/21 15:54: POC Glucose 317 H* 03/23/21 16:00: PT > 90.0 H 03/23/21 16:52: POC Glucose 292 H 03/23/21 17:53: POC Glucose 210 H 03/23/21 18:00: APTT 117.6 H* D 03/23/21 18:38: POC Glucose 175 H I & O for Last 24 hours: Intake & Output 03/21/21 03/22/21 03/23/21 03/24/21 11:59 11:59 11:59 11:59 Intake Total 840 / 840 2980 / 2980 4489.491 / 4971.491 2699.418 / 2699.418 Output Total 2750 / 2750 1200 / 1200 35 / 35 5 / 5 Balance -0 / -1909 1780 / 1780 4454.491 / 4936.491 2694.418 / 2694.418 Weight
--- NOTE | 2021-03-23 10:35 | HMH.PULMPN ---
Internal Medicine - PN: Subj *Date: 03/23/21 *Time: 10:35 Interval history: No acute respiratory events overnight. Exam - Constitutional Constitutional:: Present: no acute distress, comfortable - HENMT Exam HENMT: Present: normocephalic, atraumatic - Eye Exam Eyes:: Present: normal appearance both eyes and related structures - Neck Exam Neck:: Present: normal visual inspection - Respiratory Exam Respiratory:: Present: crackles. Absent: wheezing - Cardiovascular Exam Cardiac:: Present: S1, S2 - GI Exam GI:: Present: soft - Skin Exam Skin: Present: no rash - Neurological Exam Intubated and sedated - Extremities Exam Extremities: Present: no cyanosis, no clubbing, edema Assessment and Plan (1) Pneumonia due to COVID-19 virus Status: Acute Category: Medical Code(s): U07.1 - COVID-19; J12.82 - Pneumonia due to coronavirus disease 2019 (2) Acute respiratory failure with hypoxia Status: Acute Category: Medical Code(s): J96.01 - Acute respiratory failure with hypoxia (3) On mechanically assisted ventilation Status: Acute Category: Medical Code(s): Z99.11 - Dependence on respirator [ventilator] status (4) Cardiac arrhythmia Status: Acute Qualifiers: Arrhythmia type: ventricular fibrillation Qualified Code(s): I49.01 - Ventricular fibrillation Category: Medical Code(s): I49.9 - Cardiac arrhythmia, unspecified (5) Hypotension Status: Acute Category: Medical Code(s): I95.9 - Hypotension, unspecified (6) COVID-19 Status: Acute Category: Medical Code(s): U07.1 - COVID-19 (7) Hyperlipidemia Status: Chronic Category: Medical Code(s): E78.5 - Hyperlipidemia, unspecified (8) Hypertension Status: Chronic Category: Medical Code(s): I10 - Essential (primary) hypertension (9) Type 2 diabetes mellitus Status: Chronic Category: Medical Code(s): E11.9 - Type 2 diabetes mellitus without complications - Assessment and plan all Dx Assessment and Plan for all problems:: #Acute on chronic hypoxic respiratory failure: #COVID-19 pneumonia: Diagnosed with COVID-19 pneumonia presented with worsening respiratory distress. CTA on admission performed no evidence of pulmonary embolism, showed bilateral diffuse groundglass opacities prominent right lower lobe consolidation Significant elevated inflammatory markers with CRP at 180.5, ferritin at 3340. Patient clinical status significantly deteriorated over the course needing intubation and mechanical ventilatory support. Patient also noted to be in profound shock needing to pressors with a recent blood gas showing significant metabolic acidosis with a lactate of 15. His sputum culture admission grew normal respiratory michael. Nasal MRSA PCR negative. Plan: Patient ABG slightly worsened from yesterday with worsening hypercarbia. Patient noted to have elevated peak and plateau pressures at 40 and 28 respectively. His complaince is getting worse. We will continue current ventilator settings with permissive hypercarbia. We will continue vancomycin and Zosyn. We will continue stress dose steroids along with broad-spectrum for COVID-19 pneumonia. We will discontinue remdesivir owing to worsening renal function. Patient intubated and sedated, pupils unequal with significantly dilated right-sided pupil. Gag reflex intact. We will proceed with a CT head without contrast. We will continue Versed and fentanyl for his and also sedation. Propofol but discontinued as patient continued to have agitation Echocardiogram showed relatively normal LV and RV function. Patient continued to be on epinephrine norepinephrine and vasopressin. Milrinone was discontinued owing to hypotension. Continue to wean stress dose steroids. We will proceed with a central line placement to facilitate pressor requirements. Renal function worsening with patient becoming progressively oliguric. His hyperkalemia resolved from yesterday. How
--- NOTE | 2021-03-23 10:42 | CT_ITS ---
PROCEDURE: CT ABDOMEN PELVIS WO CON CLINICAL INDICATION: Transaminitis Covid19 positive COMPARISON: No exams were available for comparison TECHNIQUE: Axial images obtained with sagittal and coronal reformats. All CT scans at the facility use one or more dose reduction, viz: automated exposure control, ma/kV adjustment per patient size (including targeted exams where dose is matched to indication, i.e. head), or iterative reconstruction technique. FINDINGS: LOWER THORAX: Diffuse ground-glass attenuation is present in both lower lobes as well as the inferior aspect of the right upper lobe, right middle lobe and lingula consistent with Covid19 pneumonia. Consolidation is also present in the lower lobes posteriorly. These findings are consistent with Covid19 pneumonia. ABDOMEN & PELVIS: There is fatty liver with slight increased density of the gallbladder which could be due to vicarious excretion of contrast from previous CTA. The spleen, adrenal glands, and pancreas have an unremarkable appearance. No renal or ureteral calculi or hydronephrosis. No intestinal obstruction or free air. There is a mild amount of retained colonic feces. There is mild thickening of the cecum and ascending colon and transverse colon. Vazquez catheter is present. There is some mild diffuse subcutaneous edema. There are mild osteoarthritic changes of the hips. IMPRESSION: 1. Findings compatible with bilateral Covid19 pneumonia 2. Thickening cecum, ascending colon, and transverse colon suggesting colitis. 3. Fatty liver Dictated by: Pardeep Bullock MD 03/23/2021 15:56 Pardeep Bullock MD in [facility] 03/23/2021 15:56
--- NOTE | 2021-03-23 10:42 | CT_ITS ---
PROCEDURE: CT HEAD/BRAIN WO CON CLINICAL INDICATION: AMS, Anisocoria COMPARISON: No exams were available for comparison TECHNIQUE: Axial images obtained. All CT scans at the facility use one or more dose reduction, viz: automated exposure control, ma/kV adjustment per patient size (including targeted exams where dose is matched to indication, i.e. head), or iterative reconstruction technique. FINDINGS: There are multiple bilateral areas of infarction. There is a large area of decreased attenuation in the right parietal lobe extending into the mid and anterior temporal lobe. This area measures approximately 8.5 3.9 cm. An area of decreased density is present in the left posterior parietal lobe/parietal occipital area at 3.4 by 2.3 cm. There are symmetric bilateral basal ganglia infarctions of the globus pallidus I. a small infarction is present involving the central aspect of the left cerebellum at 9 mm. There is no midline shift. No intracranial hemorrhage is apparent. There are bilateral mastoid effusions. Mucosal thickening is present in the ethmoid sinus on the right. IMPRESSION: Multiple bilateral cerebral infarctions which are fairly well-circumscribed low dense and may be subacute. Bilateral symmetric basal ganglia infarctions are noted. Bilateral basal ganglia infarctions could be seen with hypoxic ischemic encephalopathy among other less common entities. No midline shift or intracranial hemorrhage. These findings were called to the nursing station 03/23/2021 at 3:30 p.m... Dictated by: Pardeep Bullock MD 03/23/2021 15:44 Pardeep Bullock MD in [facility] 03/23/2021 15:44
--- NOTE | 2021-03-23 11:04 | HMH.ITSTN ---
Spoke with JULIETH Arango. She needs to coordinate with respiratory and additional staff to assist to get patient downstairs, RN to call when ready.
[2021-03-23 11:34] LABS: Aspartate Amino Transferase 23817 U/L (17-59)
--- NOTE | 2021-03-23 12:55 | US_ITS ---
PROCEDURE: US ABDOMEN LIMITED CLINICAL INDICATION: hepatic artery thrombosis COMPARISON: CT CT ANGIO CHEST PE PROTOCOL from 03/18/2021 FINDINGS: This exam is very limited as the patient was unable to breath hold being on a ventilator. The body and tail the pancreas has an unremarkable appearance. There is diffuse fatty liver involvement. There is pulsatile flow within at least parts of the hepatic artery however, the [place] artery is not identified in much of its length due to the limitations of the exam. No other vascular structures were evaluated. Flow also noted within the portal vein. IMPRESSION: Arterial flow is present within portions of the hepatic artery. Limited evaluation. Dictated by: Pardeep Bullock MD 03/23/2021 14:31 Pardeep Bullock MD in [facility] 03/23/2021 14:31
--- NOTE | 2021-03-23 13:04 | XR_ITS ---
PROCEDURE: XR CHEST PORTABLE CLINICAL HISTORY: deep line Evaluate line placement COMPARISON: CT CT ANGIO CHEST PE PROTOCOL from 03/18/2021 CR XR CHEST PORTABLE from 03/22/2021 CR XR CHEST PORTABLE from 03/22/2021 CR XR CHEST PORTABLE from 03/23/2021 FINDINGS: The cardiomediastinal silhouette and pulmonary vascularity are within normal limits. Left subclavian central venous line has been placed. The tip is in the region the proximal SVC. No evidence of pneumothorax. There is diffuse bilateral alveolar opacification consistent with pneumonia overall not significantly changed. Endotracheal tube tip is 1.4 cm above the martin slightly low. IMPRESSION: 1. No change diffuse bilateral pneumonia. 2. Endotracheal tube tip 1.4 cm above the martin slightly low. 3. Left subclavian central venous line tip in the region the SVC without evidence of pneumothorax Dictated by: Pardeep Bullock MD 03/23/2021 14:18 Pardeep Bullock MD in [facility] 03/23/2021 14:18
--- NOTE | 2021-03-23 13:04 | HMH.GSCON ---
*Admission Date: 03/21/21 *Reason for consult:: deep line *History of present illness: This is a 55-year-old gentleman with inadequate venous access. The surgical service was consulted for central venous access catheter placement. Review of Systems - Review of Systems Review of systems:: unable to obtain - *Neurologic Reports weakness, Denies headache(s), Denies dizziness [facility] History Medical History: Reports:: Diabetes Mellitus Type 2, Hyperlipidemia, Hypertension Denies:: Asthma, Chronic Obstructive Pulmonary Disease (COPD), Diabetes Mellitus Type 1 *Have you ever received a pneumonia vaccine?: No *Have you received a flu vaccine this season?: No Laterality Cases: Right: Other (ORIF Right Elbow Fracture) Amputation: No - *Social History Smoking Status: Current every day smoker Tobacco Type: cigarettes # Packs/Day (cigarettes): 1 Alcohol Intake: never *Occupational Status:: employed Housing: house Household Members: spouse *Travel in the last 8 weeks: None Family Hx:: Diabetes, Hypertension Meds Home Medications Medication Instructions Recorded Confirmed Type Albuterol Sulfate [Proair Hfa] 1 puff IH Q6 #1 hfa.aer.[email or web address] 03/14/21 03/18/21 Rx Codeine Phosphate/Guaifenesin 5 ml PO Q6 #150 liquid 03/14/21 03/18/21 Rx [Guaifen-Codeine 100-10 mg/5 ml] Dapagliflozin/Metformin HCl 1 tab PO DAILY 03/18/21 03/18/21 History [Xigduo Xr 10 mg-1,000 mg Tab] lisinopriL [Lisinopril] 10 mg PO DAILY 03/18/21 03/19/21 History icosapent ethyL [Icosapent Ethyl] 2 gm PO BID 03/19/21 03/19/21 History Allergies Allergy/AdvReac Type Severity Reaction Status Date / Time No Known Allergies Allergy Verified 03/18/21 14:18 Exam Vital signs and Labs for Last 24 Hours: Temp Pulse Resp BP Pulse Ox 98.4 F 112 H 24 104/51 L 100 03/23/21 11:55 03/23/21 11:55 03/23/21 11:55 03/23/21 11:55 03/23/21 11:59 Laboratory Results - last 24 hr 03/21/21 11:37: POC Glucose 252 H 03/22/21 05:57: Total Bilirubin 1.6 H, Direct Bilirubin 1.6 H, Conjugated Bilirubin 0.5 H, Indirect Bilirubin 0.0, Unconjugated Bilirubin 0.0, AST 3402 H* D, ALT 1273 H*, Alkaline Phosphatase 121, Total Protein 5.3 L, Albumin 2.6 L D 03/22/21 13:30: D-Dimer 6.30 H 03/22/21 13:30: APTT 39.5 H 03/22/21 17:55: APTT 46.9 H 03/22/21 21:04: Random Glucose 567 H* 03/22/21 22:30: Random Glucose 578 H* 03/22/21 23:15: APTT 48.9 H 03/22/21 23:44: POC Glucose 507 H* 03/22/21 23:49: Specimen Source Left radial, O2 % 100, ABG pH 7.23 L*, ABG pCO2 46.1 H, ABG pO2 48.9 L, ABG HCO3 19.0 L, ABG Total CO2 20.4 L, ABG O2 Saturation 78 L*, ABG Base Excess -8.6 L, Pardeep Test Patient unable, Vent Rate 24, Tidal Volume 450, PEEP 14 03/22/21 23:55: Random Glucose 574 H* 03/23/21 00:30: WBC 15.6 H D, RBC 3.87 L, Hgb 12.0 L D, Hct 36.3 L, MCV 93.8, MCH 30.9, MCHC 32.9, RDW 14.1, Plt Count 87 L D, MPV 11.3 H, Neut % (Auto) 93.2 H, Lymph % (Auto) 2.5 L, [place] % (Auto) 2.9, Eos % (Auto) 0.4, Baso % (Auto) 1.1, Neut # (Auto) 14.5 H, Lymph # (Auto) 0.4 L, [place] # (Auto) 0.5, Eos # (Auto) 0.1, Baso # (Auto) 0.2, Total Counted 100, Neutrophils % (Manual) 95 H, Lymphocytes % (Manual) 5 L, Platelet Estimate Slight decrease, RBC Morphology Normal 03/23/21 00:30: Sodium 139, Potassium 4.0 D, Chloride 99, Carbon Dioxide 20 L, Anion Gap 24.0 H, BUN 54 H D, Creatinine 3.20 H D, Estimated Creat Clear 31, Estimated GFR 20 L, Est GFR ( Amer) 25 L D, Glucose 569 H* D, Calcium 4.9 L* D 03/23/21 00:46: POC Glucose 497 H* 03/23/21 01:27: Blood Type Confirm O Positive 03/23/21 01:32: Blood Type O Positive 03/23/21 01:32: Random Glucose 552 H* 03/23/21 01:37: POC Glucose 528 H* 03/23/21 02:38: POC Glucose 545 H* 03/23/21 02:47: Random Glucose 520 H* 03/23/21 05:12: POC Glucose 469 H* 03/23/21 05:50: WBC 14.3 H, RBC 3.60 L, Hgb 11.3 L, Hct 34.1 L, MCV 94.6 H, MCH 31.4 H, MCHC 33.2, RDW 14.0, Plt Count 76 L, MPV 11.7 H, Neut % (Auto) 93.7 H, Lymph % (Auto) 3.0 L, [place] % (Auto) 2.8, Eos % (Auto) 0.1, Baso % (
--- NOTE | 2021-03-23 13:07 | P.OP_ITS ---
Date of procedure: 03/23/21 Pre-op Diagnosis:: Inadequate venous access Post-op Diagnosis:: Same Procedure performed:: Central venous access catheter placement (7 Turkish triple-lumen catheter placed via left subclavian vein) Surgeon:: Luke Polanco MD Anesthesia: none ((Currently sedated for mechanical ventilation)) Estimated blood loss (mL): 1 Operative findings:: Catheter secured at 17 cm All lumens flushed without difficulty Operative note:: The patient was maintained in a supine position. The left chest and neck were prepped and draped in a sterile fashion. A large bore needle was utilized to access the left subclavian vein. Utilizing a modified Seldinger technique, a 7 Turkish triple-lumen catheter was placed in position. The catheter was secured at 17 cm. All lumens flushed without difficulty. Chest x-ray pending. Condition: critical Disposition: no change Complications:: No immediate. Chest x-ray pending.
--- NOTE | 2021-03-23 13:08 | HMH.PNCARD ---
Subjective Date: 03/23/21 Time: 12:45 Principal diagnosis: COVID pneumonia, resp failure Interval history: This is a 55-year-old white gentleman who is admitted to the hospital with COVID-19 pneumonia. The patient ultimately ended up divided and is on mechanical ventilation. Following his intubation he was a CODE BLUE where he went into ventricular fibrillation and was defibrillated x1 with return of his pulse and his blood pressure. Since coding the patient has remained hypotensive. This morning he is currently on Levophed, epinephrine and vasopressin drips which is currently maintaining his systolic blood pressure in the 100s. The patient remains sedated this morning on the ventilator. He has appears to be in no significant distress. Exam Vital signs and Labs for Last 24 Hours: Temp Pulse Resp BP Pulse Ox 98.4 F 112 H 24 104/51 L 100 03/23/21 11:55 03/23/21 11:55 03/23/21 11:55 03/23/21 11:55 03/23/21 11:59 Laboratory Results - last 24 hr 03/21/21 11:37: POC Glucose 252 H 03/22/21 05:57: Total Bilirubin 1.6 H, Direct Bilirubin 1.6 H, Conjugated Bilirubin 0.5 H, Indirect Bilirubin 0.0, Unconjugated Bilirubin 0.0, AST 3402 H* D, ALT 1273 H*, Alkaline Phosphatase 121, Total Protein 5.3 L, Albumin 2.6 L D 03/22/21 13:30: D-Dimer 6.30 H 03/22/21 13:30: APTT 39.5 H 03/22/21 17:55: APTT 46.9 H 03/22/21 21:04: Random Glucose 567 H* 03/22/21 22:30: Random Glucose 578 H* 03/22/21 23:15: APTT 48.9 H 03/22/21 23:44: POC Glucose 507 H* 03/22/21 23:49: Specimen Source Left radial, O2 % 100, ABG pH 7.23 L*, ABG pCO2 46.1 H, ABG pO2 48.9 L, ABG HCO3 19.0 L, ABG Total CO2 20.4 L, ABG O2 Saturation 78 L*, ABG Base Excess -8.6 L, Pardeep Test Patient unable, Vent Rate 24, Tidal Volume 450, PEEP 14 08/30/21 23:55: Random Glucose 574 H* 03/23/21 00:30: WBC 15.6 H D, RBC 3.87 L, Hgb 12.0 L D, Hct 36.3 L, MCV 93.8, MCH 30.9, MCHC 32.9, RDW 14.1, Plt Count 87 L D, MPV 11.3 H, Neut % (Auto) 93.2 H, Lymph % (Auto) 2.5 L, [place] % (Auto) 2.9, Eos % (Auto) 0.4, Baso % (Auto) 1.1, Neut # (Auto) 14.5 H, Lymph # (Auto) 0.4 L, [place] # (Auto) 0.5, Eos # (Auto) 0.1, Baso # (Auto) 0.2, Total Counted 100, Neutrophils % (Manual) 95 H, Lymphocytes % (Manual) 5 L, Platelet Estimate Slight decrease, RBC Morphology Normal 03/23/21 00:30: Sodium 139, Potassium 4.0 D, Chloride 99, Carbon Dioxide 20 L, Anion Gap 24.0 H, BUN 54 H D, Creatinine 3.20 H D, Estimated Creat Clear 31, Estimated GFR 20 L, Est GFR ( Amer) 25 L D, Glucose 569 H* D, Calcium 4.9 L* D 03/23/21 00:46: POC Glucose 497 H* 03/23/21 01:27: Blood Type Confirm O Positive 03/23/21 01:32: Blood Type O Positive 03/23/21 01:32: Random Glucose 552 H* 03/23/21 01:37: POC Glucose 528 H* 03/23/21 02:38: POC Glucose 545 H* 03/23/21 02:47: Random Glucose 520 H* 03/23/21 05:12: POC Glucose 469 H* 03/23/21 05:50: WBC 14.3 H, RBC 3.60 L, Hgb 11.3 L, Hct 34.1 L, MCV 94.6 H, MCH 31.4 H, MCHC 33.2, RDW 14.0, Plt Count 76 L, MPV 11.7 H, Neut % (Auto) 93.7 H, Lymph % (Auto) 3.0 L, [place] % (Auto) 2.8, Eos % (Auto) 0.1, Baso % (Auto) 0.5, Neut # (Auto) 13.4 H, Lymph # (Auto) 0.4 L, [place] # (Auto) 0.4, Eos # (Auto) 0.0, Baso # (Auto) 0.1, Total Counted 100, Neutrophils % (Manual) 95 H, Band Neutrophils % 1.0, Lymphocytes % (Manual) 3 L, Monocytes % (Manual) 1 L, Platelet Estimate Moderate decrease, RBC Morphology Normal 03/23/21 05:50: APTT 41.0 H 03/23/21 05:50: Sodium 141, Potassium 3.6, Chloride 102, Carbon Dioxide 22, Anion Gap 20.6 H, BUN 58 H, Creatinine 3.50 H, Estimated Creat Clear 29, Estimated GFR 18 L*, Est GFR ( Amer) 22 L, Glucose 457 H*, Calcium 5.0 L*, Total Bilirubin 2.2 H, AST 02614 H*, ALT 4033 H*, Alkaline Phosphatase 174 H, Total Protein 4.3 L, Albumin 2.0 L D, Globulin 2.3, Albumin/Globulin Ratio 0.9 L 03/23/21 06:59: POC Glucose 447 H* 03/23/21 08:03: Specimen Source L femoral, O2 % 100, ABG pH 7.20 L*, ABG pCO2 57.4 H, ABG pO2 58.5 L, ABG HCO3 21.7 L, ABG Total CO2 23.4, ABG O2 Saturation 85 L*, ABG Base Exc
[2021-03-23 14:05] LABS: Ammonia < 9 umol/L (9-30)
--- NOTE | 2021-03-23 14:25 | PC.NURSE ---
PT down to CT @ 4033
--- NOTE | 2021-03-23 18:32 | PC.NURSE ---
Pt remains vented, AC 450 Peep 16 Rate 24 FIO2 100%. #7.5 ETT midline 25@ lip. Total care, turned Q2H, Q2H oral care and suctioning performed as well. Bleeding noted off and on from oral cavity w/ positioning, MD aware. At initial assessment @ 0800 it was noted that pt's pupils were unequal ( L was 2 mm, R was 5 mm), MD @ bedside during assessment and made aware of this as well. Lungs noted to be diminished in bilat lower lobes this afternoon. Abdomen soft, non-tender w/ hypoactive BS. OGT/NGT still not in place d/t being unable to advance tubing past back of pt's throat. Both Dr. Ying and Dr. Estes aware of this. ( 3 nurses tried on 3 seperate occasions on prev day).Vazquez cath to drain @ bedside. Pt has had only 5 cc of urine out since 0700, PCP aware. BLE elevated on pillow w/ heels floating. Skin intact. He did have a small loose yellow BM this AM. 1212 - Family updated on POC 1530 - Received call from Dr. Bullock @ this time, Dr. Ying called @ 1545 w/ result of head CT. No new orders @ this time, states he will speak w/ pt's family. 1729 - updated on POC
[2021-03-23 18:47] LABS: POC Glucose,Bedside 299 (70-110)
[2021-03-23 18:47] LABS: POC Glucose,Bedside 317 (70-110)
[2021-03-23 18:47] LABS: POC Glucose,Bedside 304 (70-110)
[2021-03-23 18:47] LABS: POC Glucose,Bedside 392 (70-110)
[2021-03-23 18:47] LABS: POC Glucose,Bedside 400 (70-110)
[2021-03-23 18:47] LABS: POC Glucose,Bedside 381 (70-110)
[2021-03-23 18:47] LABS: POC Glucose,Bedside 210 (70-110)
[2021-03-23 18:47] LABS: POC Glucose,Bedside 292 (70-110)
[2021-03-23 18:47] LABS: POC Glucose,Bedside 175 (70-110)
[2021-03-23 18:47] LABS: POC Glucose,Bedside 355 (70-110)
[2021-03-23 19:26] LABS: Prothrombin Time > 90.0 seconds (10.1-12.5)
[2021-03-23 19:45] LABS: Activated Partial Thrombo Time 117.6 seconds (22.8-30.6)
[2021-03-23 22:40] LABS: POC Glucose,Bedside 187 (70-110)
[2021-03-23 22:40] LABS: POC Glucose,Bedside 176 (70-110)
[2021-03-23 22:40] LABS: POC Glucose,Bedside 165 (70-110)
[2021-03-23 22:41] LABS: POC Glucose,Bedside 172 (70-110)
[2021-03-23 23:08] LABS: INR > 9.00 (0.9-1.1)
[2021-03-24] VITALS (36 sets, daily range): BP systolic 69–142; BP diastolic 31–82; PULSE 27–152; RESP 4–35; TEMP 38.1–38.5; O2SAT 90–98; BMI 32.8
[2021-03-24 00:32] LABS: Basophils % 0.3 % (0.1-2.0); Eosinophils % 0.1 % (0.1-12.0); Hematocrit 30.6 % (42.0-52.0); Lymphocytes # 0.4 K/mm3 (0.7-4.5); Lymphocytes % 3.7 % (10-50); Mean Corpuscular HGB Conc 32.9 g/dL (31.8-35.4); Mean Corpuscular Hemoglobin 30.5 pg (27.0-31.2); Mean Corpuscular Volume 92.8 fl (80-94); Mean Platelet Volume 12.2 fl (7.4-10.4); Monocytes # 0.3 K/mm3 (0.1-1.0); Monocytes % 2.8 % (1.7-9.3); Neutrophils # 10.3 K/mm3 (1.8-7.8); Neutrophils % 93.1 % (37.0-80.0); Platelet Count 74 K/mm3 (142-424); Red Cell Distribution Width 13.9 % (11.5-17.5); White Blood Count 11.1 K/mm3 (4.8-10.8)
[2021-03-24 00:41] LABS: MANUAL DIFFERENTIAL MANUAL DIFFERENTIAL (MANUAL DIFF)
[2021-03-24 00:59] LABS: POC Glucose,Bedside 191 (70-110)
[2021-03-24 02:16] LABS: Lymphocytes % 3 % (10-50); Monocytes % 1 % (2-9); Neutrophils % 96 % (42-76); Ovalocytes 1+; Platelet Estimate Slight Decrease; Total Cells Counted 100
--- NOTE | 2021-03-24 02:18 | PC.NURSE ---
1949-Spoke with Ra at [facility]; He stated to decreased Argatroban to 7.5mL/hr((1.5mg/kg/min) and to recheck PTT at midnight. 6-Reported to Dr. Ying that patient is bleeding out of nose when being turned. Blood is darren red blood. CBC ordered. 101-Spoke with Ra at [facility]; he stated to hold Argatroban until 0400 and to restart at 0400 @ 5mL hr. (1mcg/kg/min)
[2021-03-24 02:33] LABS: Hemoglobin 10.1 g/dL (14.1-18.0)
--- NOTE | 2021-03-24 05:12 | ECG_ITS ---
APPROVED REPORT Exam: Resting ECG HR:152 bpm ECG Measurements Heart Rate 152 AXES QRSd 92 QRS 2 QT 304 T 13 QTc 483 Conclusion Atrial fibrillation with rapid ventricular response T wave abnormality, consider anterolateral ischemia or digitalis effect Abnormal ECG Electronically signed by : Avery Pearson MD 03/24/2021 17:43:27
[2021-03-24 05:25] LABS: POC Glucose,Bedside 169 (70-110)
[2021-03-24 05:25] LABS: POC Glucose,Bedside 174 (70-110)
[2021-03-24 05:25] LABS: POC Glucose,Bedside 200 (70-110)
--- NOTE | 2021-03-24 05:42 | PC.NURSE ---
Pt was given a bath. He desated and had to be ventilated via ambu bag. Sats increased to 90s. A few mins later his rhythm changed to afib. EKG reads afib. Dr. Vaca read ?Aflutter. Dr. Ying notified and gave new order for cardizem gtt IV and titrate to goal of pulse <100 and >60.
--- NOTE | 2021-03-24 05:52 | PC.NURSE ---
Dr. Ying called back to order Cardizem 10mg IV bolus to be given before cardizem gtt is started.
--- NOTE | 2021-03-24 06:26 | PC.NURSE ---
Pt has increased heart rate pre neb due to new onset of atrial fibrillation. Neb given due to increased diminished breath sounds. Heart rate lowered post neb and breath sounds are more prevalent through out all lung castellanos, but especially on the right. Small amount thin rust colored sputum suctioned via in line suctioning post neb tx.
[2021-03-24 06:45] LABS: Basophils % 0.2 % (0.1-2.0); Hematocrit 30.3 % (42.0-52.0); Lymphocytes # 0.4 K/mm3 (0.7-4.5); Lymphocytes % 3.5 % (10-50); Mean Corpuscular HGB Conc 33.1 g/dL (31.8-35.4); Mean Corpuscular Hemoglobin 30.7 pg (27.0-31.2); Mean Corpuscular Volume 92.5 fl (80-94); Mean Platelet Volume 10.6 fl (7.4-10.4); Monocytes # 0.4 K/mm3 (0.1-1.0); Neutrophils % 93.4 % (37.0-80.0); Platelet Count 82 K/mm3 (142-424); Red Blood Count 3.28 M/mm3 (4.60-6.20); Red Cell Distribution Width 14.2 % (11.5-17.5); White Blood Count 12.9 K/mm3 (4.8-10.8)
[2021-03-24 07:08] LABS: Albumin Level 1.9 g/dl (3.5-5.0); Albumin/Globulin Ratio 0.8 (1.1-1.8); Alkaline Phosphatase 165 U/L (38-126); Anion Gap 18.1 mEq/L (5-15); Blood Urea Nitrogen 74 mg/dl (9-20); Carbon Dioxide 27 mmol/L (22.0-30.0); Chloride 99 mmol/L (98-107); Creatinine Clearance Estimated 22 mL/min (50-200); Estimated Glomerular Filt Rate 12 ml/min (>60); GFR (African American) 14 ML/MIN (>60); Globulin 2.4 g/dL (1.3-3.2); Glucose 185 mg/dl (74-100); Potassium 5.1 mmoL/L (3.5-5.1); Sodium 139 mmol/L (136-145); Total Protein,Serum 4.3 g/dl (6.3-8.2)
[2021-03-24 08:34] LABS: Aspartate Amino Transferase 8009 U/L (17-59)
--- NOTE | 2021-03-24 08:36 | HMH.ACPN2 ---
Internal Medicine - PN: Subj *Date: 03/24/21 *Time: 08:36 Interval history: He desatted earlier this morning after being given a bath. Shortly thereafter he flipped into a rapid atrial fib rhythm. He was started on a Cardizem drip and quickly responded with return heart rate to normal and conversion to normal sinus rhythm. Blood pressure remained stable. Exam Vital signs and Labs for Last 24 Hours: Temp Pulse Resp BP Pulse Ox 100.5 F H 148 H 4 L 93/51 L 95 03/24/21 05:49 03/24/21 06:28 03/24/21 06:00 03/24/21 06:28 03/24/21 06:28 Laboratory Results - last 24 hr 03/23/21 01:32: Blood Type O Positive 03/23/21 05:50: AST 19777 H*, ALT 4033 H* 03/23/21 07:57: POC Glucose 392 H* 03/23/21 09:02: POC Glucose 381 H* 03/23/21 09:52: POC Glucose 400 H* 03/23/21 10:59: POC Glucose 355 H* 03/23/21 11:49: POC Glucose 299 H 03/23/21 13:14: POC Glucose 304 H* 03/23/21 13:20: Ammonia < 9 L 03/23/21 15:54: POC Glucose 317 H* 03/23/21 16:00: PT > 90.0 H, INR > 9.00 H 03/23/21 16:52: POC Glucose 292 H 03/23/21 17:53: POC Glucose 210 H 03/23/21 18:00: APTT 117.6 H* D 03/23/21 18:38: POC Glucose 175 H 03/23/21 20:17: POC Glucose 165 H 03/23/21 20:59: POC Glucose 187 H 03/23/21 21:55: POC Glucose 176 H 03/23/21 22:34: POC Glucose 172 H 03/23/21 23:07: POC Glucose 191 H 03/24/21 00:01: APTT 139.0 H* D 03/24/21 00:26: WBC 11.1 H, RBC 3.30 L, Hgb 10.1 L D, Hct 30.6 L, MCV 92.8, MCH 30.5, MCHC 32.9, RDW 13.9, Plt Count 74 L, MPV 12.2 H, Neut % (Auto) 93.1 H, Lymph % (Auto) 3.7 L, [place] % (Auto) 2.8, Eos % (Auto) 0.1, Baso % (Auto) 0.3, Neut # (Auto) 10.3 H, Lymph # (Auto) 0.4 L, [place] # (Auto) 0.3, Eos # (Auto) 0.0, Baso # (Auto) 0.0, Total Counted 100, Neutrophils % (Manual) 96 H, Lymphocytes % (Manual) 3 L, Monocytes % (Manual) 1 L, Platelet Estimate Slight decrease, Ovalocytes 1+ 03/24/21 01:06: POC Glucose 174 H 03/24/21 02:39: POC Glucose 169 H 03/24/21 04:14: POC Glucose 200 H 03/24/21 05:56: WBC 12.9 H, RBC 3.28 L, Hgb 10.0 L, Hct 30.3 L, MCV 92.5, MCH 30.7, MCHC 33.1, RDW 14.2, Plt Count 82 L, MPV 10.6 H, Neut % (Auto) 93.4 H, Lymph % (Auto) 3.5 L, [place] % (Auto) 3.0, Eos % (Auto) 0.0 L, Baso % (Auto) 0.2, Neut # (Auto) 12.0 H, Lymph # (Auto) 0.4 L, [place] # (Auto) 0.4, Eos # (Auto) 0.0, Baso # (Auto) 0.0 03/24/21 05:56: AST 8009 H* D I & O for Last 24 hours: Intake & Output 03/21/21 03/22/21 03/23/21 03/24/21 11:59 11:59 11:59 11:59 Intake Total 840 / 840 2980 / 2980 4489.491 / 4971.491 5554.418 / 5554.418 Output Total 2750 / 2750 1200 / 1200 35 / 35 5 / 5 Balance -1910 / -1909 1780 / 1780 4454.491 / 4936.491 5549.418 / 5549.418 Weight 183 lb 184 lb 183 lb 13.848 oz 209 lb 1 oz Narrative: He is sedated on the ventilator. Hemodynamics are stable. ABG is slightly improved. He remains essentially oliguric. Creatinine is increased to 5.2. Liver functions have improved. Assessment and Plan (1) Pneumonia due to COVID-19 virus Status: Acute Category: Medical Code(s): U07.1 - COVID-19; J12.82 - Pneumonia due to coronavirus disease 2018 (2) Acute respiratory failure with hypoxia Status: Acute Category: Medical Code(s): J96.01 - Acute respiratory failure with hypoxia (3) On mechanically assisted ventilation Status: Acute Category: Medical Code(s): Z99.11 - Dependence on respirator [ventilator] status (4) Cardiac arrhythmia Status: Acute Qualifiers: Arrhythmia type: ventricular fibrillation Qualified Code(s): I49.01 - Ventricular fibrillation Category: Medical Code(s): I49.9 - Cardiac arrhythmia, unspecified (5) Hypotension Status: Acute Category: Medical Code(s): I95.9 - Hypotension, unspecified (6) COVID-19 Status: Acute Category: Medical Code(s): U07.1 - COVID-19 (7) Hyperlipidemia Status: Chronic Category: Medical Code(s): E78.5 - Hyperlipidemia, unspecified (8) Hypertension Status: Chronic Category: Medical Code(s): I10 - Essential (primary) hypert
[2021-03-24 08:47] LABS: Alanine Aminotransferase 2168 U/L (12-78)
[2021-03-24 08:53] LABS: Calcium 4.2 mg/dl (8.4-10.2)
[2021-03-24 10:00] LABS: ABG Base Excess 2.3 mmol/L (-2.4-2.3); ABG HCO3 28.3 mmhg (22.0-26.0); ABG Oxygen Saturation 98 % (90-100); ABG PH 7.32 mmol/L (7.35-7.45); ABG PO2 114.2 mmhg (80-100)
[2021-03-24 10:02] LABS: Allen's Test ACCEPTABLE; Oxygen 100 %; PEEP 16; Source Right Radial; Tidal Volume 450; Vent Rate 26
[2021-03-24 10:04] LABS: ABG PCO2 55.7 mmhg (35.0-45.0)
[2021-03-24 10:12] LABS: Activated Partial Thrombo Time 119.3 seconds (22.8-30.6)
[2021-03-24 10:45] LABS: Chloride, Arterial 100 mmol/L (98-107); Potassium, Arterial 4.8 mmoL/L (3.5-5.1); Sodium Arterial 137 mmol/L (137-145)
[2021-03-24 10:46] LABS: Lactate Arterial 3.1 mmol/L (0.4-2.0)
[2021-03-24 10:48] LABS: POC Glucose,Bedside 218 (70-110)
--- NOTE | 2021-03-24 11:16 | HMH.PHACONS ---
- Pharmacy Consult Date: 03/22/21 Time: 12:30 Referring provider: DR. FLORES Reason for Consult:: VANCOMYCIN DOSING Allergies and ADEs:: Allergies Allergy/AdvReac Type Severity Reaction Status Date / Time No Known Allergies Allergy Verified 03/18/21 14:18 Home Medications:: Home Medications Medication Instructions Recorded Confirmed Type Albuterol Sulfate [Proair Hfa] 1 puff IH Q6 #1 hfa.aer.ad 03/14/21 03/18/21 Rx Codeine Phosphate/Guaifenesin 5 ml PO Q6 #150 liquid 03/14/21 03/18/21 Rx [Guaifen-Codeine 100-10 mg/5 ml] Dapagliflozin/Metformin HCl 1 tab PO DAILY 03/18/21 03/18/21 History [Xigduo Xr 10 mg-1,000 mg Tab] lisinopriL [Lisinopril] 10 mg PO DAILY 03/18/21 03/19/21 History icosapent ethyL [Icosapent Ethyl] 2 gm PO BID 03/19/21 03/19/21 History Height: 1.7 m Weight: 94.829 kg Laboratory Results:: Laboratory Results - last 24 hr 03/23/21 01:32: Blood Type O Positive 03/23/21 05:50: AST 50220 H* 03/23/21 07:57: POC Glucose 392 H* 03/23/21 09:02: POC Glucose 381 H* 03/23/21 09:52: POC Glucose 400 H* 03/23/21 10:59: POC Glucose 355 H* 03/23/21 11:49: POC Glucose 299 H 03/23/21 13:14: POC Glucose 304 H* 03/23/21 13:20: Ammonia < 9 L 03/23/21 15:54: POC Glucose 317 H* 03/23/21 16:00: PT > 90.0 H, INR > 9.00 H 03/23/21 16:52: POC Glucose 292 H 03/23/21 17:53: POC Glucose 210 H 03/23/21 18:00: APTT 117.6 H* D 03/23/21 18:38: POC Glucose 175 H 03/23/21 20:17: POC Glucose 165 H 03/23/21 20:59: POC Glucose 187 H 03/23/21 21:55: POC Glucose 176 H 03/23/21 22:34: POC Glucose 172 H 03/23/21 23:07: POC Glucose 191 H 03/24/21 00:01: APTT 139.0 H* D 03/24/21 00:26: WBC 11.1 H, RBC 3.30 L, Hgb 10.1 L D, Hct 30.6 L, MCV 92.8, MCH 30.5, MCHC 32.9, RDW 13.9, Plt Count 74 L, MPV 12.2 H, Neut % (Auto) 93.1 H, Lymph % (Auto) 3.7 L, [place] % (Auto) 2.8, Eos % (Auto) 0.1, Baso % (Auto) 0.3, Neut # (Auto) 10.3 H, Lymph # (Auto) 0.4 L, [place] # (Auto) 0.3, Eos # (Auto) 0.0, Baso # (Auto) 0.0, Total Counted 100, Neutrophils % (Manual) 96 H, Lymphocytes % (Manual) 3 L, Monocytes % (Manual) 1 L, Platelet Estimate Slight decrease, Ovalocytes 1+ 03/24/21 01:06: POC Glucose 174 H 03/24/21 02:39: POC Glucose 169 H 03/24/21 04:14: POC Glucose 200 H 03/24/21 05:56: WBC 12.9 H, RBC 3.28 L, Hgb 10.0 L, Hct 30.3 L, MCV 92.5, MCH 30.7, MCHC 33.1, RDW 14.2, Plt Count 82 L, MPV 10.6 H, Neut % (Auto) 93.4 H, Lymph % (Auto) 3.5 L, [place] % (Auto) 3.0, Eos % (Auto) 0.0 L, Baso % (Auto) 0.2, Neut # (Auto) 12.0 H, Lymph # (Auto) 0.4 L, [place] # (Auto) 0.4, Eos # (Auto) 0.0, Baso # (Auto) 0.0 03/24/21 05:56: Sodium 139, Potassium 5.1 D, Chloride 99, Carbon Dioxide 27, Anion Gap 18.1 H, BUN 74 H D, Creatinine 5.20 H D, Estimated Creat Clear 22, Estimated GFR 12 L*, Est GFR ( Amer) 14 L* D, Glucose 185 H, Calcium 4.2 L* D, Total Bilirubin 2.0 H, AST 8009 H* D, ALT 2168 H*, Alkaline Phosphatase 165 H, Total Protein 4.3 L, Albumin 1.9 L, Globulin 2.4, Albumin/Globulin Ratio 0.8 L 03/24/21 06:00: POC Glucose 218 H 03/24/21 08:50: APTT 119.3 H* D 03/24/21 09:04: Specimen Source Right radial, O2 % 100, ABG pH 7.32 L, ABG pCO2 55.7 H, ABG pO2 114.2 H, ABG HCO3 28.3 H, ABG Total CO2 30.0 H, ABG O2 Saturation 98, ABG Base Excess 2.3, Pardeep Test Acceptable, Vent Rate 26, Tidal Volume 450, PEEP 16 03/24/21 09:04: ABG Sodium 137, ABG Potassium 4.8, ABG Chloride 100, ABG Lactate 3.1 H, Arterial Blood Potassium 4.8, Arterial Blood Chloride 100 Medical History: Reports:: Diabetes Mellitus Type 2, Hyperlipidemia, Hypertension Denies:: Asthma, Chronic Obstructive Pulmonary Disease (COPD), Diabetes Mellitus Type 1 Assessment and Plan (1) Pneumonia due to COVID-19 virus Status: Acute Category: Medical Code(s): U07.1 - COVID-19; J12.82 - Pneumonia due to coronavirus disease 2019 (2) Acute respiratory failure with hypoxia Status: Acute Category: Medical Code(s): J96.01 - Acute respiratory failure with hypoxia (3) On mechanically assisted ventilation Status
--- NOTE | 2021-03-24 11:36 | HMH.PULMPN ---
Internal Medicine - PN: Subj *Date: 03/24/21 *Time: 11:36 Interval history: No acute respiratory events overnight. Patient continued to remain in high ventilator settings with PEEP of 16 and FiO2 100%. Exam - Constitutional Constitutional:: Present: comfortable - HENMT Exam HENMT: Present: normocephalic, atraumatic - Neck Exam Neck:: Present: normal visual inspection - Respiratory Exam Respiratory:: Present: decreased breath sounds, crackles - Cardiovascular Exam Cardiac:: Present: S1, S2 - GI Exam GI:: Present: soft. Absent: guarding - Neurological Exam Neurological: Absent: alert Intubated and sedated - Extremities Exam Extremities: Present: no cyanosis, no clubbing, edema Assessment and Plan (1) Pneumonia due to COVID-19 virus Status: Acute Category: Medical Code(s): U07.1 - COVID-19; J12.82 - Pneumonia due to coronavirus disease 2019 (2) Acute respiratory failure with hypoxia Status: Acute Category: Medical Code(s): J96.01 - Acute respiratory failure with hypoxia (3) On mechanically assisted ventilation Status: Acute Category: Medical Code(s): Z99.11 - Dependence on respirator [ventilator] status (4) Cardiac arrhythmia Status: Acute Qualifiers: Arrhythmia type: ventricular fibrillation Qualified Code(s): I49.01 - Ventricular fibrillation Category: Medical Code(s): I49.9 - Cardiac arrhythmia, unspecified (5) Hypotension Status: Acute Category: Medical Code(s): I95.9 - Hypotension, unspecified (6) COVID-19 Status: Acute Category: Medical Code(s): U07.1 - COVID-19 (7) Hyperlipidemia Status: Chronic Category: Medical Code(s): E78.5 - Hyperlipidemia, unspecified (8) Hypertension Status: Chronic Category: Medical Code(s): I10 - Essential (primary) hypertension (9) Type 2 diabetes mellitus Status: Chronic Category: Medical Code(s): E11.9 - Type 2 diabetes mellitus without complications (10) DVT (deep venous thrombosis) Status: Acute Category: Medical Code(s): I82.409 - Acute embolism and thrombosis of unspecified deep veins of unspecified lower extremity (11) Acute kidney injury Status: Acute Category: Medical Code(s): N17.9 - Acute kidney failure, unspecified - Assessment and plan all Dx Assessment and Plan for all problems:: #Acute on chronic hypoxic respiratory failure: #COVID-19 pneumonia: Diagnosed with COVID-19 pneumonia presented with worsening respiratory distress. CTA on admission performed no evidence of pulmonary embolism, showed bilateral diffuse groundglass opacities prominent right lower lobe consolidation Significant elevated inflammatory markers with CRP at 180.5, ferritin at 3340. Patient clinical status significantly deteriorated over the course needing intubation and mechanical ventilatory support. Patient also noted to be in profound shock needing to pressors with a recent blood gas showing significant metabolic acidosis with a lactate of 15. His sputum culture admission grew normal respiratory michael. Nasal MRSA PCR negative. Plan: Patient ABG improved with respect to his hypercarbic respiratory failure and hypoxic respiratory failure. Patient continued to have poor lung compliance with significantly elevated plateau and peak pressures. We will continue current ventilator settings at PEEP of 16, 100% FiO2, 450 of tidal volume and rate of 26 with permissive hypercarbia. We will continue vancomycin and Zosyn. We will continue stress dose steroids along with broad-spectrum for COVID-19 pneumonia. We have discontinued from June owing to worsening renal function and body certainly going to transaminitis. Patient intubated and sedated, pupils unequal with significantly dilated right-sided pupil. Gag reflex intact. CT head with contrast showed bilateral ischemic lesions symmetric at basal ganglia asymmetric and asymmetric at cerebral hemispheres which is most likely appeared to be combination
[2021-03-24 12:01] LABS: Activated Partial Thrombo Time 115.1 seconds (22.8-30.6)
--- NOTE | 2021-03-24 12:02 | PC.NURSE ---
lab called with a critical of PTT of 115.1, name, and room number verified, critical lab reported to Kay RN, pt's primary nurse
[2021-03-24 13:00] LABS: Activated Partial Thrombo Time 115.1 seconds (22.8-30.6)
--- NOTE | 2021-03-24 13:35 | HMH.PNCARD ---
Subjective Date: 03/24/21 Time: 13:35 Principal diagnosis: COVID pneumonia, resp failure Interval history: This is a 55-year-old white gentleman who was admitted to the hospital with COVID-19 pneumonia. He ultimately ended up intubated on mechanical ventilation. He remains on the ventilator today with a PEEP of 16 and FiO2 at 100%. The patient did have a CODE BLUE following his initial intubation where he went into ventricular fibrillation and was defibrillated x1 with return of his pulse and blood pressure. During the night last night while being turned there was an issue with his oxygenation and the patient did go into atrial fibrillation. He was started on a Cardizem drip which is subsequently been stopped. The patient is back in sinus rhythm today. The patient remains on pressors for blood pressure control and he is still currently sedated on the ventilator. He appears to be in no distress. Exam Vital signs and Labs for Last 24 Hours: Temp Pulse Resp BP Pulse Ox 100.5 F H 89 26 H 93/51 L 98 03/24/21 05:49 03/24/21 11:24 03/24/21 11:24 03/24/21 06:28 03/24/21 11:24 Laboratory Results - last 24 hr 03/23/21 07:57: POC Glucose 392 H* 03/23/21 09:02: POC Glucose 381 H* 03/23/21 09:52: POC Glucose 400 H* 03/23/21 10:59: POC Glucose 355 H* 03/23/21 11:49: POC Glucose 299 H 03/23/21 13:14: POC Glucose 304 H* 03/23/21 13:20: Ammonia < 9 L 03/23/21 15:54: POC Glucose 317 H* 03/23/21 16:00: PT > 90.0 H, INR > 9.00 H 03/23/21 16:52: POC Glucose 292 H 03/23/21 17:53: POC Glucose 210 H 03/23/21 18:00: APTT 117.6 H* D 03/23/21 18:38: POC Glucose 175 H 03/23/21 20:17: POC Glucose 165 H 03/23/21 20:59: POC Glucose 187 H 03/23/21 21:55: POC Glucose 176 H 03/23/21 22:34: POC Glucose 172 H 03/23/21 23:07: POC Glucose 191 H 03/24/21 00:01: APTT 139.0 H* D 03/24/21 00:26: WBC 11.1 H, RBC 3.30 L, Hgb 10.1 L D, Hct 30.6 L, MCV 92.8, MCH 30.5, MCHC 32.9, RDW 13.9, Plt Count 74 L, MPV 12.2 H, Neut % (Auto) 93.1 H, Lymph % (Auto) 3.7 L, [address] % (Auto) 2.8, Eos % (Auto) 0.1, Baso % (Auto) 0.3, Neut # (Auto) 10.3 H, Lymph # (Auto) 0.4 L, [address] # (Auto) 0.3, Eos # (Auto) 0.0, Baso # (Auto) 0.0, Total Counted 100, Neutrophils % (Manual) 96 H, Lymphocytes % (Manual) 3 L, Monocytes % (Manual) 1 L, Platelet Estimate Slight decrease, Ovalocytes 1+ 03/24/21 01:06: POC Glucose 174 H 03/24/21 02:39: POC Glucose 169 H 03/24/21 04:14: POC Glucose 200 H 03/24/21 05:56: WBC 12.9 H, RBC 3.28 L, Hgb 10.0 L, Hct 30.3 L, MCV 92.5, MCH 30.7, MCHC 33.1, RDW 14.2, Plt Count 82 L, MPV 10.6 H, Neut % (Auto) 93.4 H, Lymph % (Auto) 3.5 L, [address] % (Auto) 3.0, Eos % (Auto) 0.0 L, Baso % (Auto) 0.2, Neut # (Auto) 12.0 H, Lymph # (Auto) 0.4 L, [address] # (Auto) 0.4, Eos # (Auto) 0.0, Baso # (Auto) 0.0 03/24/21 05:56: Sodium 139, Potassium 5.1 D, Chloride 99, Carbon Dioxide 27, Anion Gap 18.1 H, BUN 74 H D, Creatinine 5.20 H D, Estimated Creat Clear 22, Estimated GFR 12 L*, Est GFR ( Amer) 14 L* D, Glucose 185 H, Calcium 4.2 L* D, Total Bilirubin 2.0 H, AST 8009 H* D, ALT 2168 H*, Alkaline Phosphatase 165 H, Total Protein 4.3 L, Albumin 1.9 L, Globulin 2.4, Albumin/Globulin Ratio 0.8 L 03/24/21 06:00: POC Glucose 218 H 03/24/21 08:50: APTT 119.3 H* D 03/24/21 09:04: Specimen Source Right radial, O2 % 100, ABG pH 7.32 L, ABG pCO2 55.7 H, ABG pO2 114.2 H, ABG HCO3 28.3 H, ABG Total CO2 30.0 H, ABG O2 Saturation 98, ABG Base Excess 2.3, Pardeep Test Acceptable, Vent Rate 26, Tidal Volume 450, PEEP 16 03/24/21 09:04: ABG Sodium 137, ABG Potassium 4.8, ABG Chloride 100, ABG Lactate 3.1 H, Arterial Blood Potassium 4.8, Arterial Blood Chloride 100 03/24/21 11:11: APTT 115.1 H* 03/24/21 12:03: APTT 115.1 H* I & O for Last 24 hours: Intake & Output 03/21/21 03/22/21 03/23/21 03/24/21 23:59 23:59 23:59 23:59 Intake Total 720 / 720 3858.500 / 4186.500 5830.409 / 5830.409 2855 / 2855 Output Total 1900 / 2100 310 / 310 30 / 30 Balance -1180 / -1380 3548.500 / 3876.500 5800.409 / 5800.409
[2021-03-24 14:14] LABS: Activated Partial Thrombo Time 112.1 seconds (22.8-30.6)
[2021-03-24 14:33] LABS: Glucose,Random 184 mg/dL (74-100)
[2021-03-24 14:46] LABS: Reflex Lactic Add Lactic Reflex
[2021-03-24 15:10] LABS: Activated Partial Thrombo Time 111.6 seconds (22.8-30.6)
[2021-03-24 15:13] LABS: Lactic Acid Follow Up (RFLX 1) 1.6 mmol/L (0.7-2.1)
[2021-03-24 15:18] LABS: Vancomycin,Trough 13.1 ug/mL (5.0-10.0)
[2021-03-24 15:32] LABS: Calcium 5.2 mg/dl (8.4-10.2)
[2021-03-24 15:38] LABS: Activated Partial Thrombo Time 110.6 seconds (22.8-30.6)
--- NOTE | 2021-03-24 16:27 | PC.NURSE ---
0825 Diltiazem ok to be dc per Dr Ying and a black r/t pt being in NSR at 90's. 0858 notified Alicia Segovia that pt BUN 74 Crea 5.20 Ca 4.2 (no new orders) [address] estes, hold Argatroban drip. check PTT hourly (orders to be entered by pharmacy) Dr Estes already aware of lab values) 1008 Dr Estes notified of Critcal ABG pH 7.324 CO2 55.7PO2 114 HCO3 28 BE 1.5 O2 sat 98 1011 notified Sanjeev Mathew of critcal PTT 119.3 hold drip 1156 notified Sanjeev mathew of critical PTT 115.1 hold drip 1253 notified J Mathew of critical PTT 115.1 hold drip 1230 ok to dc insulin drip r/t pt sugars being controlled. change pt SSI to HISS (per dr ying)
--- NOTE | 2021-03-24 17:06 | PC.NURSE ---
notified Dr Estes at 1523 that the pt Ca was now 5.2 new orders received give 3 grams of Calcium order the following labs Ionized calcum TSH PTH Vitamin D
[2021-03-24 17:22] LABS: Magnesium 1.9 mg/dl (1.6-2.3)
[2021-03-24 18:08] LABS: Thyroid Stimulating Hormone 0.06 uIU/mL (0.465-4.68)
[2021-03-24 18:10] LABS: POC Glucose,Bedside 276 (70-110)
[2021-03-24 18:15] LABS: Intact Parathyroid Hormone 190.8 pg/mL (7.5-53.5)
[2021-03-24 18:40] LABS: 25-OH Vitamin D, Total 19.1 ng/mL (30-100)
[2021-03-24 19:03] LABS: Activated Partial Thrombo Time 112.3 seconds (22.8-30.6)
[2021-03-24 21:21] LABS: Vancomycin,Peak 29.7 ug/ml (11-39)
--- NOTE | 2021-03-24 22:41 | PC.NURSE ---
PT IS INTUBATED AND SEDATED
--- NOTE | 2021-03-24 22:55 | PC.NURSE ---
0700 start of shift fentanyl at 225mcg 1000 drip decreased to 200mcg per md order to wean 1215 decreased fentanyl to 150 1645 fentanyl decreased to 125 1800 fentanyl drip increased back to 150 r/t low o2 sats and vent alarm. pt to be kept comfortable. 1300 levo drip due to be changed 1305 vitals reassessed following new emergency medicine physician assistant
[2021-03-25] VITALS (34 sets, daily range): BP systolic 92–132; BP diastolic 47–68; PULSE 76–90; RESP 24–33; TEMP 37.1–37.8; O2SAT 91–98; BMI 33.4
[2021-03-25 00:48] LABS: Activated Partial Thrombo Time 101.3 seconds (22.8-30.6)
--- NOTE | 2021-03-25 02:01 | PC.NURSE ---
0049-Carol at [facility] pharmacy stated that argatroban would be on hold until PTT is <80 and to check it q 4 hours.
[2021-03-25 04:05] LABS: Activated Partial Thrombo Time 96.9 seconds (22.8-30.6)
--- NOTE | 2021-03-25 04:10 | PC.NURSE ---
Spoke with Carol in [facility], the patient's PTT 96.9 Continue to hold argatroban. Recheck PTT at 0800.
[2021-03-25 05:45] LABS: POC Glucose,Bedside 361 (70-110)
[2021-03-25 05:45] LABS: POC Glucose,Bedside 330 (70-110)
--- NOTE | 2021-03-25 08:08 | HMH.ACPN2 ---
Internal Medicine - PN: Subj *Date: 03/25/21 *Time: 08:08 Interval history: Uneventful night. Blood pressure and respiratory status stable. Fentanyl has been weaned down some. Exam Vital signs and Labs for Last 24 Hours: Temp Pulse Resp BP Pulse Ox 100.5 F H 79 28 H 97/54 L 98 03/24/21 05:49 03/25/21 06:26 03/25/21 06:26 03/25/21 06:17 03/25/21 06:26 Laboratory Results - last 24 hr 03/24/21 05:56: Sodium 139, Potassium 5.1 D, Chloride 99, Carbon Dioxide 27, Anion Gap 18.1 H, BUN 74 H D, Creatinine 5.20 H D, Estimated Creat Clear 22, Estimated GFR 12 L*, Est GFR ( Amer) 14 L* D, Glucose 185 H, Calcium 4.2 L* D, Total Bilirubin 2.0 H, AST 8009 H* D, ALT 2168 H*, Alkaline Phosphatase 165 H, Total Protein 4.3 L, Albumin 1.9 L, Globulin 2.4, Albumin/Globulin Ratio 0.8 L 03/24/21 06:00: POC Glucose 218 H 03/24/21 08:50: APTT 119.3 H* D 03/24/21 09:04: Specimen Source Right radial, O2 % 100, ABG pH 7.32 L, ABG pCO2 55.7 H, ABG pO2 114.2 H, ABG HCO3 28.3 H, ABG Total CO2 30.0 H, ABG O2 Saturation 98, ABG Base Excess 2.3, Pardeep Test Acceptable, Vent Rate 26, Tidal Volume 450, PEEP 16 03/24/21 09:04: ABG Sodium 137, ABG Potassium 4.8, ABG Chloride 100, ABG Lactate 3.1 H, Arterial Blood Potassium 4.8, Arterial Blood Chloride 100 03/24/21 11:11: APTT 115.1 H* 03/24/21 11:11: Random Glucose 184 H 03/24/21 12:03: APTT 115.1 H* 03/24/21 13:30: APTT 112.1 H* 03/24/21 13:30: Vancomycin Trough 13.1 H 03/24/21 14:12: APTT 111.6 H* 03/24/21 14:57: Calcium 5.2 L* D 03/24/21 14:57: APTT 110.6 H* 03/24/21 14:57: Lactate 1.6 03/24/21 16:02: APTT 115.0 H* 03/24/21 17:00: Magnesium 1.9 03/24/21 17:00: TSH 0.06 L, PTH Intact 190.8 H 03/24/21 17:00: 25-OH Vitamin D Total 19.1 L 03/24/21 17:22: POC Glucose 276 H 03/24/21 18:20: APTT 112.3 H* 03/24/21 20:38: Vancomycin Peak 29.7 03/24/21 21:36: POC Glucose 361 H* 03/24/21 23:08: APTT 101.3 H* 03/25/21 03:15: APTT 96.9 H* 03/25/21 05:23: POC Glucose 330 H* I & O for Last 24 hours: Intake & Output 03/22/21 03/23/21 03/24/21 03/25/21 11:59 11:59 11:59 11:59 Intake Total 2980 / 2980 4489.491 / 4971.491 5554.418 / 5554.418 5694.89 / 5694.89 Output Total 1200 / 1200 35 / 35 5 / 5 750 / 750 Balance 1780 / 1780 4454.491 / 4936.491 5549.418 / 5549.418 4944.89 / 4944.89 Weight 184 lb 183 lb 13.848 oz 209 lb 1 oz 212 lb 13.701 oz Microbiology Reports for the Last 24 Hours: Microbiology 03/22/21 11:30 Blood Blood Culture - Preliminary NO GROWTH AFTER 48 HOURS 03/22/21 11:30 Blood Blood Culture - Preliminary NO GROWTH AFTER 48 HOURS Narrative: Remains sedated on the ventilator pupils are more equal this morning. Chest with bilateral rhonchi. Abdomen soft and nondistended. Extremities with 1+ edema Assessment and Plan (1) Pneumonia due to COVID-19 virus Status: Acute Category: Medical Code(s): U07.1 - COVID-19; J12.82 - Pneumonia due to coronavirus disease 2019 (2) Acute respiratory failure with hypoxia Status: Acute Category: Medical Code(s): J96.01 - Acute respiratory failure with hypoxia (3) On mechanically assisted ventilation Status: Acute Category: Medical Code(s): Z99.11 - Dependence on respirator [ventilator] status (4) Cardiac arrhythmia Status: Acute Qualifiers: Arrhythmia type: ventricular fibrillation Qualified Code(s): I49.01 - Ventricular fibrillation Category: Medical Code(s): I49.9 - Cardiac arrhythmia, unspecified (5) Hypotension Status: Acute Category: Medical Code(s): I95.9 - Hypotension, unspecified (6) COVID-19 Status: Acute Category: Medical Code(s): U07.1 - COVID-19 (7) Hyperlipidemia Status: Chronic Category: Medical Code(s): E78.5 - Hyperlipidemia, unspecified (8) Hypertension Status: Chronic Category: Medical Code(s): I10 - Essential (primary) hypertension (9) Type 2 diabetes mellitus Status: Chronic C
--- NOTE | 2021-03-25 08:28 | PC.NURSE ---
received call from [facility]. Update given. No beds available @ .
[2021-03-25 08:30] LABS: ABG HCO3 26.7 mmhg (22.0-26.0); ABG Oxygen Saturation 98 % (90-100); ABG PH 7.35 mmol/L (7.35-7.45); ABG PO2 118.7 mmhg (80-100); ABG TCO2 28.3 mmhg (23-27)
[2021-03-25 08:32] LABS: Oxygen 100 %
[2021-03-25 08:33] LABS: Allen's Test Acceptable; PEEP 16; Source Left Radial; Tidal Volume 450; Vent Rate 26
[2021-03-25 08:34] LABS: ABG PCO2 50.1 mmhg (35.0-45.0)
--- NOTE | 2021-03-25 08:39 | HMH.PHACONS ---
- Pharmacy Consult Date: 03/25/21 Time: 08:39 Referring provider: DR. FLORES Reason for Consult:: VANCOMYCIN LEVELS Allergies and ADEs:: Allergies Allergy/AdvReac Type Severity Reaction Status Date / Time No Known Allergies Allergy Verified 03/18/21 14:18 Home Medications:: Home Medications Medication Instructions Recorded Confirmed Type Albuterol Sulfate [Proair Hfa] 1 puff IH Q6 #1 hfa.aer.ad 03/14/21 03/18/21 Rx Codeine Phosphate/Guaifenesin 5 ml PO Q6 #150 liquid 03/14/21 03/18/21 Rx [Guaifen-Codeine 100-10 mg/5 ml] Dapagliflozin/Metformin HCl 1 tab PO DAILY 03/18/21 03/18/21 History [Xigduo Xr 10 mg-1,000 mg Tab] lisinopriL [Lisinopril] 10 mg PO DAILY 03/18/21 03/19/21 History icosapent ethyL [Icosapent Ethyl] 2 gm PO BID 03/19/21 03/19/21 History Height: 1.7 m Weight: 96.55 kg Laboratory Results:: Laboratory Results - last 24 hr 03/24/21 05:56: Sodium 139, Potassium 5.1 D, Chloride 99, Carbon Dioxide 27, Anion Gap 18.1 H, BUN 74 H D, Creatinine 5.20 H D, Estimated Creat Clear 22, Estimated GFR 12 L*, Est GFR ( Amer) 14 L* D, Glucose 185 H, Calcium 4.2 L* D, Total Bilirubin 2.0 H, ALT 2168 H*, Alkaline Phosphatase 165 H, Total Protein 4.3 L, Albumin 1.9 L, Globulin 2.4, Albumin/Globulin Ratio 0.8 L 03/24/21 06:00: POC Glucose 218 H 03/24/21 08:50: APTT 119.3 H* D 03/24/21 09:04: Specimen Source Right radial, O2 % 100, ABG pH 7.32 L, ABG pCO2 55.7 H, ABG pO2 114.2 H, ABG HCO3 28.3 H, ABG Total CO2 30.0 H, ABG O2 Saturation 98, ABG Base Excess 2.3, Pardeep Test Acceptable, Vent Rate 26, Tidal Volume 450, PEEP 16 03/24/21 09:04: ABG Sodium 137, ABG Potassium 4.8, ABG Chloride 100, ABG Lactate 3.1 H, Arterial Blood Potassium 4.8, Arterial Blood Chloride 100 03/24/21 11:11: APTT 115.1 H* 03/24/21 11:11: Random Glucose 184 H 03/24/21 12:03: APTT 115.1 H* 03/24/21 13:30: APTT 112.1 H* 03/24/21 13:30: Vancomycin Trough 13.1 H 03/24/21 14:12: APTT 111.6 H* 03/24/21 14:57: Calcium 5.2 L* D 03/24/21 14:57: APTT 110.6 H* 03/24/21 14:57: Lactate 1.6 03/24/21 16:02: APTT 115.0 H* 03/24/21 17:00: Magnesium 1.9 03/24/21 17:00: TSH 0.06 L, PTH Intact 190.8 H 03/24/21 17:00: 25-OH Vitamin D Total 19.1 L 03/24/21 17:22: POC Glucose 276 H 03/24/21 18:20: APTT 112.3 H* 03/24/21 20:38: Vancomycin Peak 29.7 03/24/21 21:36: POC Glucose 361 H* 03/24/21 23:08: APTT 101.3 H* 03/25/21 03:15: APTT 96.9 H* 03/25/21 05:23: POC Glucose 330 H* 03/25/21 08:26: Specimen Source Left radial, O2 % 100, ABG pH 7.35, ABG pCO2 50.1 H, ABG pO2 118.7 H, ABG HCO3 26.7 H, ABG Total CO2 28.3 H, ABG O2 Saturation 98, ABG Base Excess 1.0, Pardeep Test Acceptable, Vent Rate 26, Tidal Volume 450, PEEP 16 Medical History: Reports:: Diabetes Mellitus Type 2, Hyperlipidemia, Hypertension Denies:: Asthma, Chronic Obstructive Pulmonary Disease (COPD), Diabetes Mellitus Type 1 Assessment and Plan (1) Pneumonia due to COVID-19 virus Status: Acute Category: Medical Code(s): U07.1 - COVID-19; J12.82 - Pneumonia due to coronavirus disease 2019 (2) Acute respiratory failure with hypoxia Status: Acute Category: Medical Code(s): J96.01 - Acute respiratory failure with hypoxia (3) On mechanically assisted ventilation Status: Acute Category: Medical Code(s): Z99.11 - Dependence on respirator [ventilator] status (4) Cardiac arrhythmia Status: Acute Qualifiers: Arrhythmia type: ventricular fibrillation Qualified Code(s): I49.01 - Ventricular fibrillation Category: Medical Code(s): I49.9 - Cardiac arrhythmia, unspecified (5) Hypotension Status: Acute Category: Medical Code(s): I95.9 - Hypotension, unspecified (6) COVID-19 Status: Acute Category: Medical Code(s): U07.1 - COVID-19 (7) Hyperlipidemia Status: Chronic Category: Medical Code(s): E78.5 - Hyperlipidemia, unspecified (8) Hypertension Status: Chronic Category: Medical Code(s): I10 - Essential (primary) hypertension (9) Type 2 d
--- NOTE | 2021-03-25 08:49 | PC.NURSE ---
FIO2 decreased to 90% per Dr Lopez v/o
--- NOTE | 2021-03-25 08:53 | PC.NURSE ---
critical CO2 [address] Estes.
[2021-03-25 08:55] LABS: Activated Partial Thrombo Time 96.4 seconds (22.8-30.6)
--- NOTE | 2021-03-25 08:55 | PC.NURSE ---
Dr. Ying notified of PTT 96.
--- NOTE | 2021-03-25 09:10 | PC.NURSE ---
received call from Dr. Estes with new orders: HOLD Versed gtt, decreased Fentanyl gtt to 25mcg/hr, HOLD Vasopressin gtt, HOLD Bicarb gtt, wean Levo gtt as tolerated to keep SBP>90, AM labs. Orders carried out.
[2021-03-25 09:15] LABS: Hep A Ab, IgM Negative (Negative); Hepatitis B Core Antibody IgM Negative (Negative); Hepatitis B Surface Antigen Negative (Negative); Hepatitis C Antibody <0.1 s/co ratio (0.0-0.9)
[2021-03-25 09:22] LABS: Basophils % 0.2 % (0.1-2.0); Eosinophils % 0.1 % (0.1-12.0); Hematocrit 27.8 % (42.0-52.0); Lymphocytes # 0.5 K/mm3 (0.7-4.5); Lymphocytes % 4.1 % (10-50); Mean Corpuscular HGB Conc 32.4 g/dL (31.8-35.4); Mean Corpuscular Hemoglobin 30.4 pg (27.0-31.2); Mean Corpuscular Volume 93.8 fl (80-94); Mean Platelet Volume 11.4 fl (7.4-10.4); Monocytes # 0.4 K/mm3 (0.1-1.0); Monocytes % 3.7 % (1.7-9.3); Neutrophils # 10.1 K/mm3 (1.8-7.8); Platelet Count 62 K/mm3 (142-424); Red Blood Count 2.97 M/mm3 (4.60-6.20)
[2021-03-25 09:27] LABS: Chloride 96 mmol/L (98-107); Sodium 137 mmol/L (136-145)
[2021-03-25 09:28] LABS: Potassium 5.3 mmoL/L (3.5-5.1)
[2021-03-25 09:30] LABS: Albumin Level 1.8 g/dl (3.5-5.0); Albumin/Globulin Ratio 0.8 (1.1-1.8); Alkaline Phosphatase 143 U/L (38-126); Anion Gap 18.3 mEq/L (5-15); Bilirubin,Total 1.8 mg/dl (0.2-1.3); Carbon Dioxide 28 mmol/L (22.0-30.0); Globulin 2.2 g/dL (1.3-3.2); MANUAL DIFFERENTIAL MANUAL DIFFERENTIAL (MANUAL DIFF)
[2021-03-25 09:31] LABS: Glucose 337 mg/dl (74-100); Lipase 266 U/L (23-300)
--- NOTE | 2021-03-25 09:42 | XR_ITS ---
PROCEDURE: XR CHEST PORTABLE CLINICAL HISTORY: CONDITION Covid19 positive COMPARISON: CT CT ANGIO CHEST PE PROTOCOL from 03/18/2021 CR XR CHEST PORTABLE from 03/22/2021 CR XR CHEST PORTABLE from 03/23/2021 CR XR CHEST PORTABLE from 03/23/2021 FINDINGS: The cardiomediastinal silhouette and pulmonary vascularity are within normal limits. Endotracheal tube tip is in good position 4 cm above the martin. Left subclavian central venous line tip is in the region the SVC. Diffuse pneumonia with ground-glass attenuation noted in the right upper and right lower lobe and left lower lobe with consolidation present in the lung bases which appears worse. There has been interval development of a pneumo mediastinum as well as subcutaneous emphysema in the left supraclavicular area. A pneumothorax is not definitely identified. No acute bony abnormalities. IMPRESSION: Interval development of pneumomediastinum and subcutaneous emphysema. No definite pneumothorax. Worsening bilateral lower lobe pneumonia with diffuse ground-glass infiltrates in both lungs. The patient's nurse was notified of these findings by telephone 03/25/2021 at 10:10 a.m. Dictated by: Pardeep Bullock MD 03/25/2021 10:13 Pardeep Bullock MD in [facility] 03/25/2021 10:13
[2021-03-25 09:44] LABS: Lymphocytes % 8 % (10-50); Monocytes % 5 % (2-9); Neutrophils % 85 % (42-76); Platelet Estimate Marked Decrease; RBC Morphology Normal; Total Cells Counted 100
--- NOTE | 2021-03-25 09:48 | PC.NURSE ---
left chest and neck subcu emphysema noted during assessment. STAT CXR entered.
--- NOTE | 2021-03-25 10:00 | PC.NURSE ---
BP 98/47 (67). Levo gtt increased to 14mcg/min. Dr. Estes has ordered to keep MAP.70.
--- NOTE | 2021-03-25 10:02 | CT_ITS ---
PROCEDURE: CT HEAD/BRAIN WO CON CLINICAL INDICATION: Infaction Follow-up infarctions COMPARISON: CT CT HEAD/BRAIN WO CON from 03/23/2021 TECHNIQUE: Axial images obtained. All CT scans at the facility use one or more dose reduction, viz: automated exposure control, ma/kV adjustment per patient size (including targeted exams where dose is matched to indication, i.e. head), or iterative reconstruction technique. FINDINGS: Small left cerebellar infarction once again noted not significantly changed. Bilateral basal ganglia, right temporal parietal occipital and left parietal occipital infarctions are once again noted. No midline shift is evident. No acute intracranial hemorrhage. The barahona-white matter differentiation is somewhat less conspicuous suggesting underlying cerebral edema. The sulci also appear less obvious especially on the right also in keeping with cerebral edema. Air-fluid levels present in the right maxillary sinus and the sphenoid sinus. There is opacification of the ethmoid sinus on the right and there is air-fluid level within the oral cavity and bilateral nasopharyngeal cavities consistent with retained secretions. Air-fluid levels present in the right mastoid sinus with bilateral mastoid effusions. IMPRESSION: No change bilateral areas of infarction and basal ganglia infarctions without obvious hemorrhage. Decreasing barahona-white matter differentiation with further attenuation of cerebral sulci consistent with diffuse cerebral edema. This is greater on the right compared to the left and has slightly progressed from the previous exam. Sinus disease with retained secretions from the endotracheal tube Dictated by: Pardeep Bullock MD 03/25/2021 12:22 Pardeep Bullock MD in [facility] 03/25/2021 12:22
[2021-03-25 10:08] LABS: Alanine Aminotransferase 1310 U/L (12-78); Aspartate Amino Transferase 1714 U/L (17-59)
[2021-03-25 10:10] LABS: Blood Urea Nitrogen 102 mg/dl (9-20)
--- NOTE | 2021-03-25 10:12 | PC.NURSE ---
Dr. Estes and Dr. Ying notified of the following: BUN 102, Ca 4.8, and CXR reveals a pneumo mediastinum and subcu air left chest (per Dr. Bullock).
[2021-03-25 10:14] LABS: Creatinine Clearance Estimated 18 mL/min (50-200); Estimated Glomerular Filt Rate 9 ml/min (>60); GFR (African American) 11 ML/MIN (>60)
--- NOTE | 2021-03-25 10:30 | HMH.ITSTN ---
COORDINATING WITH RESPIRATORY AND NURSING STAFF TO TRANSPORT PATIENT AT THIS TIME
--- NOTE | 2021-03-25 10:37 | CT_ITS ---
PROCEDURE: CT CHEST WO CON CLINICAL INDICATION: COVID PNEUMONIA Pneumomediastinum COMPARISON: CT CT ANGIO CHEST PE PROTOCOL from 03/18/2021 TECHNIQUE: Axial images obtained with sagittal and coronal reformats. All CT scans at the facility use one or more dose reduction, viz: automated exposure control, ma/kV adjustment per patient size (including targeted exams where dose is matched to indication, i.e. head), or iterative reconstruction technique. FINDINGS: There is an endotracheal tube present. The tip is in good position well above the martin. There has been interval development of diffuse subcutaneous emphysema in the neck and anterior chest wall greater on the left. Pneumomediastinum is present. No obvious pneumothorax. There is diffuse bilateral ground-glass attenuation of the upper lobes and lower lobes with consolidation in the lower lobes posteriorly. There space disease has progressed compared to the previous exam There is diffuse increased density in the lateral chest bravo left greater than right most likely related to subcutaneous edema. Hemorrhage could have a similar appearance. IMPRESSION: 1. Interval development of diffuse subcutaneous edema and pneumomediastinum. No evidence of pneumothorax. 2. Diffuse bilateral airspace disease with ground-glass opacification in the upper and lower lobes and consolidation in the lower lobes posteriorly. These findings have progressed compared to the previous exam. 3. Increased density in the lateral chest bravo inferiorly on both sides which may be due to edema. Hemorrhage could have a similar appearance. Dictated by: Pardeep Bullock MD 03/25/2021 12:30 Pardeep Bullock MD in [facility] 03/25/2021 12:30
[2021-03-25 10:51] LABS: Calcium 4.7 mg/dl (8.4-10.2); Calcium 4.8 mg/dl (8.4-10.2)
--- NOTE | 2021-03-25 11:15 | PC.NURSE ---
RESPIRATORY CARE NOTE: BACK FROM TRANSPORT TO CT AND PLACED BACK ON CHAD ON AC UR=992,RR26, PEEP16, AND 90%. PT WAS TAKEN ON TRANSPORT VENT. VENT CHECK AND NEBULIZER DONE AT THIS TIME.
--- NOTE | 2021-03-25 11:23 | HMH.ACPN ---
Internal Medicine - PN: Subj *Date: 03/25/21 *Time: 11:23 Exam Vital signs and Labs for Last 24 Hours: Temp Pulse Resp BP Pulse Ox 98.7 F 81 28 H 103/57 L 94 L 03/25/21 08:00 03/25/21 09:00 03/25/21 09:00 03/25/21 09:00 03/25/21 09:00 Laboratory Results - last 24 hr 03/23/21 13:20: Hepatitis A IgM Ab Negative, Hep Bs Antigen Negative, Hep B Core IgM Ab Negative, Hepatitis C Antibody <0.1 03/24/21 11:11: APTT 115.1 H* 03/24/21 11:11: Random Glucose 184 H 03/24/21 12:03: APTT 115.1 H* 03/24/21 13:30: APTT 112.1 H* 03/24/21 13:30: Vancomycin Trough 13.1 H 03/24/21 14:12: APTT 111.6 H* 03/24/21 14:57: Calcium 5.2 L* D 03/24/21 14:57: APTT 110.6 H* 03/24/21 14:57: Lactate 1.6 03/24/21 16:02: APTT 115.0 H* 03/24/21 17:00: Magnesium 1.9 03/24/21 17:00: TSH 0.06 L, PTH Intact 190.8 H 03/24/21 17:00: 25-OH Vitamin D Total 19.1 L 03/24/21 17:22: POC Glucose 276 H 03/24/21 18:20: APTT 112.3 H* 03/24/21 20:38: Vancomycin Peak 29.7 03/24/21 21:36: POC Glucose 361 H* 03/24/21 23:08: APTT 101.3 H* 03/25/21 03:15: APTT 96.9 H* 03/25/21 05:23: POC Glucose 330 H* 03/25/21 07:56: APTT 96.4 H* 03/25/21 07:56: WBC 11.0 H, RBC 2.97 L, Hgb 9.0 L, Hct 27.8 L, MCV 93.8, MCH 30.4, MCHC 32.4, RDW 14.0, Plt Count 62 L, MPV 11.4 H, Neut % (Auto) 92.0 H, Lymph % (Auto) 4.1 L, [place] % (Auto) 3.7, Eos % (Auto) 0.1, Baso % (Auto) 0.2, Neut # (Auto) 10.1 H, Lymph # (Auto) 0.5 L, [place] # (Auto) 0.4, Eos # (Auto) 0.0, Baso # (Auto) 0.0, Total Counted 100, Neutrophils % (Manual) 85 H, Band Neutrophils % 2.0, Lymphocytes % (Manual) 8 L, Monocytes % (Manual) 5, Platelet Estimate Marked decrease, RBC Morphology Normal 03/25/21 07:56: Sodium 137, Potassium 5.3 H, Chloride 96 L, Carbon Dioxide 28, Anion Gap 18.3 H, BUN 102 H* D, Creatinine 6.60 H D, Estimated Creat Clear 18, Estimated GFR 9 L*, Est GFR ( Amer) 11 L* D, Glucose 337 H, Calcium 4.8 L*, Total Bilirubin 1.8 H, AST 1714 H* D, ALT 1310 H*, Alkaline Phosphatase 143 H, Total Protein 4.0 L, Albumin 1.8 L, Globulin 2.2, Albumin/Globulin Ratio 0.8 L 03/25/21 07:56: Lipase 266 03/25/21 07:56: Calcium 4.7 L* 03/25/21 08:26: Specimen Source Left radial, O2 % 100, ABG pH 7.35, ABG pCO2 50.1 H, ABG pO2 118.7 H, ABG HCO3 26.7 H, ABG Total CO2 28.3 H, ABG O2 Saturation 98, ABG Base Excess 1.0, Pardeep Test Acceptable, Vent Rate 26, Tidal Volume 450, PEEP 16 I & O for Last 24 hours: Intake & Output 03/22/21 03/23/21 03/24/21 03/25/21 23:59 23:59 23:59 23:59 Intake Total 3858.500 / 4186.500 5830.409 / 5830.409 6352.89 / 6352.89 2197 / 2197 Output Total 310 / 310 30 / 30 50 / 50 743 / 743 Balance 3548.500 / 3876.500 5800.409 / 5800.409 6302.89 / 6302.89 1454 / 1454 Weight 83.4 kg 94.829 kg 96.55 kg Microbiology Reports for the Last 24 Hours: Microbiology 03/22/21 11:30 Blood Blood Culture - Preliminary NO GROWTH AFTER 48 HOURS 03/22/21 11:30 Blood Blood Culture - Preliminary NO GROWTH AFTER 48 HOURS Assessment and Plan (1) Pneumonia due to COVID-19 virus Status: Acute Category: Medical Code(s): U07.1 - COVID-19; J12.82 - Pneumonia due to coronavirus disease 2019 (2) Acute respiratory failure with hypoxia Status: Acute Category: Medical Code(s): J96.01 - Acute respiratory failure with hypoxia (3) On mechanically assisted ventilation Status: Acute Category: Medical Code(s): Z99.11 - Dependence on respirator [ventilator] status (4) Cardiac arrhythmia Status: Acute Qualifiers: Arrhythmia type: ventricular fibrillation Qualified Code(s): I49.01 - Ventricular fibrillation Category: Medical Code(s): I49.9 - Cardiac arrhythmia, unspecified (5) Hypotension Status: Acute Category: Medical Code(s): I95.9 - Hypotension, unspecified (6) COVID-19 Status: Acute Category: Medical Code(s): U07.1 - COVID-19 (7) Hyperlipidemia Status: Chronic Category: Medical Code(s): E78.5 - Hype
--- NOTE | 2021-03-25 11:37 | HMH.PULMPN ---
Internal Medicine - PN: Subj *Date: 03/25/21 *Time: 11:37 Interval history: No acute respiratory events overnight. Exam - Constitutional Constitutional:: Present: no acute distress, comfortable - HENMT Exam HENMT: Present: normocephalic, atraumatic - Eye Exam Eyes:: Present: eyelids normal, normal conjunctiva - Neck Exam Comments: Subcutaneous air noted on palpation especially on the left side of the neck - Respiratory Exam Respiratory:: Present: no respiratory distress, crackles - Cardiovascular Exam Cardiac:: Present: S1, S2 - GI Exam GI:: Present: soft, no hepatosplenomegaly, no tenderness. Absent: distended, guarding - Skin Exam Skin: Present: warm, no rash - Neurological Exam Neurological: Absent: alert, awake, normal cognition Intubated and sedated - Extremities Exam Extremities: Present: no cyanosis, no clubbing, edema Assessment and Plan (1) Pneumonia due to COVID-19 virus Status: Acute Category: Medical Code(s): U07.1 - COVID-19; J12.82 - Pneumonia due to coronavirus disease 2019 (2) Acute respiratory failure with hypoxia Status: Acute Category: Medical Code(s): J96.01 - Acute respiratory failure with hypoxia (3) On mechanically assisted ventilation Status: Acute Category: Medical Code(s): Z99.11 - Dependence on respirator [ventilator] status (4) Cardiac arrhythmia Status: Acute Qualifiers: Arrhythmia type: ventricular fibrillation Qualified Code(s): I49.01 - Ventricular fibrillation Category: Medical Code(s): I49.9 - Cardiac arrhythmia, unspecified (5) Hypotension Status: Acute Category: Medical Code(s): I95.9 - Hypotension, unspecified (6) COVID-19 Status: Acute Category: Medical Code(s): U07.1 - COVID-19 (7) Hyperlipidemia Status: Chronic Category: Medical Code(s): E78.5 - Hyperlipidemia, unspecified (8) Hypertension Status: Chronic Category: Medical Code(s): I10 - Essential (primary) hypertension (9) Type 2 diabetes mellitus Status: Chronic Category: Medical Code(s): E11.9 - Type 2 diabetes mellitus without complications (10) DVT (deep venous thrombosis) Status: Acute Category: Medical Code(s): I82.409 - Acute embolism and thrombosis of unspecified deep veins of unspecified lower extremity (11) Acute kidney injury Status: Acute Category: Medical Code(s): N17.9 - Acute kidney failure, unspecified (12) Cerebral infarction Status: Acute Category: Medical Code(s): I63.9 - Cerebral infarction, unspecified - Assessment and plan all Dx Assessment and Plan for all problems:: #Acute on chronic hypoxic respiratory failure: #COVID-19 pneumonia: Diagnosed with COVID-19 pneumonia presented with worsening respiratory distress. CTA on admission performed no evidence of pulmonary embolism, showed bilateral diffuse groundglass opacities prominent right lower lobe consolidation Significant elevated inflammatory markers with CRP at 180.5, ferritin at 3340. Patient hospital course was complicated by worsening respiratory failure needing intubation and mechanical ventilation. He also had a cardiac arrest status post CPR with return of circulation. He is currently receiving broad-spectrum antibiotics but his hospital course was also complicated by possible heparin-induced thrombocytopenia, pulmonary liver failure and cerebral and basal ganglion infarction Plan: Patient ABG continue to improve with improving oxygenation. FiO2 decreased to 90% today. patient continued to have poor lung compliance with significantly elevated plateau and peak pressures. Continue to wean FiO2 as tolerated. Patient intubated and sedated.CT head with contrast showed bilateral ischemic lesions symmetric at basal ganglia asymmetric and asymmetric at cerebral hemispheres which is most likely appeared to be combination of embolic & global ischemia. Patient had late in the admission coded and had CPR performed with successful ROSC.
--- NOTE | 2021-03-25 12:40 | PC.NURSE ---
received call from lab (Neredya) with critical result PTT 89. Name and verified. Dr. Ying updated.
--- NOTE | 2021-03-25 13:50 | PC.NURSE ---
RESPIRATORY CARE NOTE: PER ANNANGI INCREASED FIO2 FROM 90% TO 100% AND DECREASED PEEP FROM 16 TO 14. PT TOLERATING CHANGES WELL AT THIS TIME. SATS AT 95%.
[2021-03-25 13:56] LABS: Anion Gap 19.1 mEq/L (5-15); Carbon Dioxide 29 mmol/L (22.0-30.0); Chloride 95 mmol/L (98-107); Glucose 305 mg/dl (74-100); Potassium 5.1 mmoL/L (3.5-5.1); Sodium 138 mmol/L (136-145)
[2021-03-25 14:02] LABS: Creatinine Clearance Estimated 16 mL/min (50-200); Estimated Glomerular Filt Rate 8 ml/min (>60); GFR (African American) 10 ML/MIN (>60)
[2021-03-25 14:07] LABS: Blood Urea Nitrogen 105 mg/dl (9-20); Calcium 4.7 mg/dl (8.4-10.2)
--- NOTE | 2021-03-25 14:07 | PC.NURSE ---
received call from lab (Ana) with critical results: BUN 105, Cr 7.10, and Ca 4.7. Dr. Ying notified.
[2021-03-25 16:14] LABS: Anion Gap 21.1 mEq/L (5-15); Carbon Dioxide 28 mmol/L (22.0-30.0); Chloride 95 mmol/L (98-107); Glucose 282 mg/dl (74-100); Potassium 5.1 mmoL/L (3.5-5.1); Sodium 139 mmol/L (136-145)
[2021-03-25 16:20] LABS: Creatinine Clearance Estimated 16 mL/min (50-200); Estimated Glomerular Filt Rate 8 ml/min (>60); GFR (African American) 10 ML/MIN (>60)
[2021-03-25 16:33] LABS: Blood Urea Nitrogen 109 mg/dl (9-20)
--- NOTE | 2021-03-25 16:40 | PC.NURSE ---
received call from lab (Nereyda) with critical results BUN 109, Cr 7.20, and Ca 4.8. Name and verified. Notified Dr. Ying
[2021-03-25 17:02] LABS: POC Glucose,Bedside 271 (70-110)
[2021-03-25 18:02] LABS: Anion Gap 21.2 mEq/L (5-15); Carbon Dioxide 28 mmol/L (22.0-30.0); Chloride 95 mmol/L (98-107); Glucose 277 mg/dl (74-100); Potassium 5.2 mmoL/L (3.5-5.1); Sodium 139 mmol/L (136-145)
[2021-03-25 18:08] LABS: Creatinine Clearance Estimated 16 mL/min (50-200); Estimated Glomerular Filt Rate 8 ml/min (>60); GFR (African American) 10 ML/MIN (>60)
--- NOTE | 2021-03-25 18:21 | PC.NURSE ---
Pt called requesting Dr Ying to paged and to her as soon as possible, she stated that this could not wait until the morning. I called Cardiovascular Rn Fariba Rausch who said she would page Dr. Ying and let him know.
--- NOTE | 2021-03-25 18:21 | PC.NURSE ---
DR. FUENTES PAGED PER WIFES REQUEST
[2021-03-25 18:24] LABS: Blood Urea Nitrogen 109 mg/dl (9-20)
--- NOTE | 2021-03-25 18:25 | PC.NURSE ---
DR. FUENTES RETURNED PAGE, STATES HE WILL CALL PT'S
--- NOTE | 2021-03-25 18:32 | PC.NURSE ---
received call from stating that she is upset that pt's status is worsening. verbalized her frustration with yelling and foul language, threatening to luis the hospital . RN listened as she vented her thoughts. continued to yell @ RN and then hung up the phone. Dr. Ying paged and was updated on event. Lab (Shon) called and gave the critical lab values: BUN 109, Cr 7.30, and Ca 4.7. Name and verified. Dr. Ying also updated on critical results.
[2021-03-25 18:55] LABS: Activated Partial Thrombo Time 84.8 seconds (22.8-30.6)
[2021-03-25 19:52] LABS: Anion Gap 21.1 mEq/L (5-15); Carbon Dioxide 28 mmol/L (22.0-30.0); Chloride 97 mmol/L (98-107); Glucose 259 mg/dl (74-100); Potassium 5.1 mmoL/L (3.5-5.1); Sodium 141 mmol/L (136-145)
[2021-03-25 19:58] LABS: Creatinine Clearance Estimated 16 mL/min (50-200); Estimated Glomerular Filt Rate 8 ml/min (>60); GFR (African American) 10 ML/MIN (>60)
[2021-03-25 20:20] LABS: Blood Urea Nitrogen 112 mg/dl (9-20)
[2021-03-25 20:21] LABS: Calcium 4.7 mg/dl (8.4-10.2)
[2021-03-25 20:24] LABS: Calcium 4.8 mg/dl (8.4-10.2)
[2021-03-25 20:24] LABS: Calcium 4.7 mg/dl (8.4-10.2)
--- NOTE | 2021-03-25 20:27 | PC.NURSE ---
dr. ruff notified of critical lab values, no new orders received.
[2021-03-25 21:20] LABS: POC Glucose,Bedside 252 (70-110)
[2021-03-25 21:23] LABS: Chloride 99 mmol/L (98-107); Potassium 5.1 mmoL/L (3.5-5.1); Sodium 141 mmol/L (136-145)
[2021-03-25 21:26] LABS: Anion Gap 20.1 mEq/L (5-15); Carbon Dioxide 27 mmol/L (22.0-30.0); Glucose 257 mg/dl (74-100)
--- NOTE | 2021-03-25 21:29 | PC.NURSE ---
ett suction patient, o2 sats dropped to 65%. required bagging for approximately 10min for sats to return back to 90%. small amount of thick, brownish red secretion obtained by suctioning.
[2021-03-25 21:33] LABS: Creatinine Clearance Estimated 15 mL/min (50-200); Estimated Glomerular Filt Rate 8 ml/min (>60); GFR (African American) 9 ML/MIN (>60)
[2021-03-25 21:46] LABS: Blood Urea Nitrogen 115 mg/dl (9-20)
--- NOTE | 2021-03-25 21:52 | PC.NURSE ---
received critical lab values from luzmaria in lab, dr. speedy valente
[2021-03-25 22:06] LABS: Calcium 4.6 mg/dl (8.4-10.2)
--- NOTE | 2021-03-25 23:46 | PC.NURSE ---
UNABLE TO REACH DR. FUENTES TO REPORT CRITICAL LABS, previous bmp results 2 hours prior had been reported without significant changes
[2021-03-26] VITALS (44 sets, daily range): BP systolic 85–174; BP diastolic 37–106; PULSE 77–172; RESP 26–38; TEMP 35.6–37.4; O2SAT 72–100; BMI 34.9
[2021-03-26 00:05] LABS: Potassium, Arterial 5.5 mmoL/L (3.5-5.1); Sodium Arterial 139 mmol/L (137-145)
[2021-03-26 00:06] LABS: Chloride, Arterial 106 mmol/L (98-107)
[2021-03-26 00:09] LABS: Lactate Arterial 14.4 mmol/L (0.4-2.0)
--- NOTE | 2021-03-26 00:49 | PC.NURSE ---
RECEIVED CALL FROM NIGHT WATCH WITH APTT RESULTS., CONTINUE TO HOLD ARGATROBAN
--- NOTE | 2021-03-26 01:29 | PC.NURSE ---
have been able to titrate levophed drip down, currently on 5 mcq/min. patient desats with any movement. just taking down left upper extremity dressing patient sats dropped from 97% to 91%. left upper extremity dressing removed from site of previously removed iv catheters. skin is blistered in spots as well as large sloughed off area slightly larger than soft ball. see wound care pic.pupils have been equal, non reactive, 1+. no corneal or gag reflex present this shift. large amount of crepitus present left upper chest, neck and shoulder. crepitus in neck more dense than other areas. urine output has been 10 ml this shift, catheter irrigated without difficulty.
--- NOTE | 2021-03-26 04:01 | XR_ITS ---
PROCEDURE INFORMATION: Exam: XR Chest Exam date and time: 03/26/2021 4:01 AM Age: 55 years old Clinical indication: Other: De sat; Additional info: Decrease in o2 sats intubated TECHNIQUE: Imaging protocol: XR of the chest. Views: 1 view. COMPARISON: CT CHEST WO CON 03/25/2021 10:58 AM FINDINGS: Tubes, catheters and devices: The ET tube is 5 cm from the martin. Central venous catheters in good position Lungs: Some bibasilar airspace disease is stable. Pleural spaces: Unremarkable. No pleural effusion. No pneumothorax. Heart/Mediastinum: Pneumomediastinum is again visualized. Bones/joints: Unremarkable. IMPRESSION: Pneumomediastinum unchanged from prior. Bibasilar airspace disease.
--- NOTE | 2021-03-26 04:02 | PC.NURSE ---
patient has required being bagged for sats dropping below 88. during period being bagged sats will increase back to 97%. within 5-10 min of being back on ventilator patients sats dropped again back down to 85%. dr. hagan notified of condition as well as urine output, vital signs, and absent corneal and gag reflex. new orders received
[2021-03-26 04:31] LABS: Activated Partial Thrombo Time 82.2 seconds (22.8-30.6)
--- NOTE | 2021-03-26 04:37 | PC.NURSE ---
levo titration times 2120 levo decreased to 13 mcq/min 2150 decreased to 11 mcq/min 2315 decreased to 9 mcq/min 0025 decreased to 7 mcq/min 0115 decreased to 5 mcq/min 0220 decreased to 3 mcq/min 0330 levophed drip turned off
--- NOTE | 2021-03-26 04:40 | PC.NURSE ---
received call from night watch aptt results 82 received order to continue to hold argatroban
[2021-03-26 05:18] LABS: POC Glucose,Bedside 236 (70-110)
--- NOTE | 2021-03-26 06:21 | PC.NURSE ---
received stat cxr report, impression no changes from previous
--- NOTE | 2021-03-26 06:59 | PC.NURSE ---
dr. ruff called to check on patient status
[2021-03-26 07:08] LABS: Albumin/Globulin Ratio 0.8 (1.1-1.8); Alkaline Phosphatase 166 U/L (38-126); Anion Gap 20.2 mEq/L (5-15); Aspartate Amino Transferase 481 U/L (17-59); Bilirubin,Total 2.5 mg/dl (0.2-1.3); Carbon Dioxide 28 mmol/L (22.0-30.0); Chloride 100 mmol/L (98-107); Globulin 2.5 g/dL (1.3-3.2); Glucose 258 mg/dl (74-100); Potassium 5.2 mmoL/L (3.5-5.1); Sodium 143 mmol/L (136-145); Total Protein,Serum 4.5 g/dl (6.3-8.2)
[2021-03-26 07:16] LABS: Alanine Aminotransferase 928 U/L (12-78); Creatinine Clearance Estimated 15 mL/min (50-200); Estimated Glomerular Filt Rate 7 ml/min (>60); GFR (African American) 8 ML/MIN (>60)
--- NOTE | 2021-03-26 07:30 | PC.NURSE ---
Lyudmila Vicente received call from lab and notified me of the following critical labs: BUN 121, Cr 8.10, and Ca 4.6. Dr. Ying is rounding on this pt and has been notified of the results.
[2021-03-26 07:43] LABS: Blood Urea Nitrogen 121 mg/dl (9-20)
--- NOTE | 2021-03-26 07:54 | HMH.ACPN2 ---
Internal Medicine - PN: Subj *Date: 03/26/21 *Time: 08:26 Interval history: Reviewed his status overnight. Nurses report having to bag ventilate him several times due to decrease in his O2 sats. Attempts were made to decrease his PEEP yesterday but his O2 sats dropped and his PEEP is back at 16. CT scan from yesterday demonstrated the pneumomediastinum and subcutaneous emphysema but no pneumothorax. Also note worsening airspace disease bilaterally. He has had essentially no urine output. Creatinine is up to 8.1. Scan of head yesterday showed development of cerebral edema. He is off all sedation except for a small amount of fentanyl for comfort measures and is unresponsive. He has no corneal, gag, or cough reflex. Exam Vital signs and Labs for Last 24 Hours: Temp Pulse Resp BP Pulse Ox 98.7 F 85 28 H 120/59 L 89 L 03/26/21 04:00 03/26/21 07:00 03/26/21 07:00 03/26/21 07:00 03/26/21 07:00 Laboratory Results - last 24 hr 03/22/21 09:22: ABG Sodium 139, ABG Potassium 5.5 H, ABG Chloride 106, ABG Lactate 14.4 H, Arterial Blood Potassium 5.5 H, Arterial Blood Chloride 106 03/23/21 13:20: Hepatitis A IgM Ab Negative, Hep Bs Antigen Negative, Hep B Core IgM Ab Negative, Hepatitis C Antibody <0.1 03/24/21 09:04: ABG Potassium 4.8, ABG Chloride 100, Arterial Blood Potassium 4.8, Arterial Blood Chloride 100, Arterial Blood Ionized Calcium Director Of [employer] 03/25/21 07:56: APTT 96.4 H* 03/25/21 07:56: WBC 11.0 H, RBC 2.97 L, Hgb 9.0 L, Hct 27.8 L, MCV 93.8, MCH 30.4, MCHC 32.4, RDW 14.0, Plt Count 62 L, MPV 11.4 H, Neut % (Auto) 92.0 H, Lymph % (Auto) 4.1 L, [place] % (Auto) 3.7, Eos % (Auto) 0.1, Baso % (Auto) 0.2, Neut # (Auto) 10.1 H, Lymph # (Auto) 0.5 L, [place] # (Auto) 0.4, Eos # (Auto) 0.0, Baso # (Auto) 0.0, Total Counted 100, Neutrophils % (Manual) 85 H, Band Neutrophils % 2.0, Lymphocytes % (Manual) 8 L, Monocytes % (Manual) 5, Platelet Estimate Marked decrease, RBC Morphology Normal 03/25/21 07:56: Sodium 137, Potassium 5.3 H, Chloride 96 L, Carbon Dioxide 28, Anion Gap 18.3 H, BUN 102 H* D, Creatinine 6.60 H D, Estimated Creat Clear 18, Estimated GFR 9 L*, Est GFR ( Amer) 11 L* D, Glucose 337 H, Calcium 4.8 L*, Total Bilirubin 1.8 H, AST 1714 H* D, ALT 1310 H*, Alkaline Phosphatase 143 H, Total Protein 4.0 L, Albumin 1.8 L, Globulin 2.2, Albumin/Globulin Ratio 0.8 L 03/25/21 07:56: Lipase 266 03/25/21 07:56: Calcium 4.7 L* 03/25/21 08:26: Specimen Source Left radial, O2 % 100, ABG pH 7.35, ABG pCO2 50.1 H, ABG pO2 118.7 H, ABG HCO3 26.7 H, ABG Total CO2 28.3 H, ABG O2 Saturation 98, ABG Base Excess 1.0, Pardeep Test Acceptable, Vent Rate 26, Tidal Volume 450, PEEP 16 03/25/21 12:35: APTT 89.0 H* 03/25/21 13:30: Sodium 138, Potassium 5.1, Chloride 95 L, Carbon Dioxide 29, Anion Gap 19.1 H, BUN 105 H*, Creatinine 7.10 H, Estimated Creat Clear 16, Estimated GFR 8 L*, Est GFR ( Amer) 10 L*, Glucose 305 H, Calcium 4.7 L* 03/25/21 15:40: Sodium 139, Potassium 5.1, Chloride 95 L, Carbon Dioxide 28, Anion Gap 21.1 H, BUN 109 H*, Creatinine 7.20 H, Estimated Creat Clear 16, Estimated GFR 8 L*, Est GFR ( Amer) 10 L*, Glucose 282 H, Calcium 4.8 L* 03/25/21 16:54: POC Glucose 271 H 03/25/21 17:40: Sodium 139, Potassium 5.2 H, Chloride 95 L, Carbon Dioxide 28, Anion Gap 21.2 H, BUN 109 H*, Creatinine 7.30 H, Estimated Creat Clear 16, Estimated GFR 8 L*, Est GFR ( Amer) 10 L*, Glucose 277 H, Calcium 4.7 L* 03/25/21 17:40: APTT 84.8 H* 03/25/21 19:18: Sodium 141, Potassium 5.1, Chloride 97 L, Carbon Dioxide 28, Anion Gap 21.1 H, BUN 112 H*, Creatinine 7.30 H, Estimated Creat Clear 16, Estimated GFR 8 L*, Est GFR ( Amer) 10 L*, Glucose 259 H, Calcium 4.7 L* 03/25/21 21:11: POC Glucose 252 H 03/25/21 21:12: Sodium 141, Potassium 5.1, Chloride 99, Carbon Dioxide 27, Anion Gap 20.1 H, BUN 115 H*, Creatinine 7.60 H, Estimated Creat Clear 15, Estimated GFR 8 L*, Est GFR ( Amer) 9 L*, Glucose 257 H, Calcium 4.6 L* 03/26/21 00:08: APTT 82.0 H*
--- NOTE | 2021-03-26 08:00 | PC.NURSE ---
received critical notifications from [facility]: PT/INR 70.8/6.92 and PTT 81.0. Notified Dr. Ying and Dr. Estes.
[2021-03-26 08:02] LABS: Magnesium 2.3 mg/dl (1.6-2.3)
[2021-03-26 08:15] LABS: ABG Base Excess -3.3 mmol/L (-2.4-2.3); ABG HCO3 24.8 mmhg (22.0-26.0); ABG Oxygen Saturation 92 % (90-100); ABG PO2 80.3 mmhg (80-100); ABG TCO2 26.8 mmhg (23-27)
[2021-03-26 08:16] LABS: Allen's Test acceptable; Oxygen 100 %; PEEP 16; Source Left Radial; Tidal Volume 450; Vent Rate 26
[2021-03-26 08:18] LABS: ABG PCO2 65.1 mmhg (35.0-45.0)
--- NOTE | 2021-03-26 09:10 | PC.NURSE ---
received call from [facility]. They do NOT have any beds available at this time. Pt update provided.
[2021-03-26 09:27] LABS: INR 6.92 (0.9-1.1); Prothrombin Time 70.8 seconds (10.1-12.5)
--- NOTE | 2021-03-26 09:38 | XR_ITS ---
PROCEDURE: XR CHEST PORTABLE CLINICAL HISTORY: vent placement COMPARISON: CR XR CHEST PORTABLE from 03/23/[address] CHEST WO CON from 03/25/2021 CR XR CHEST PORTABLE from 03/25/2021 CR XR CHEST PORTABLE from 03/26/2021 FINDINGS: There is a large right pneumothorax under tension with mediastinal shift from right to left. There is an endotracheal tube seen with the tip in proper position just above the martin. There is a left-sided central line with the tip at the junction of the innominate vein and SVC. Subcutaneous emphysema is still seen in left supraclavicular region. IMPRESSION: Acute large right-sided tension pneumothorax with mediastinal shift from right to left and diffuse atelectasis involving the left perihilar region left lower lung field Dictated by: Dr. Denny Perez MD 03/26/2021 10:30 Dr. Denny Perez MD in [facility] 03/26/2021 10:30
--- NOTE | 2021-03-26 10:02 | XR_ITS ---
PROCEDURE: XR CHEST PORTABLE CLINICAL HISTORY: CHEST TUBE PLAEMENT COMPARISON: CT CT CHEST WO CON from 03/25/2021 CR XR CHEST PORTABLE from 03/25/2021 CR XR CHEST PORTABLE from 03/26/2021 CR XR CHEST PORTABLE from 03/26/2021 FINDINGS: There is a right-sided chest tube seen the tip right upper lung field projecting over the suprahilar location. There has been marked interval improvement essentially complete resolution of the large tension right pneumothorax. Both lung castellanos are well expanded at this time both showing patchy ill-defined opacities in the perihilar regions and lower lobes most likely due to atelectasis slightly more prominent right base than left. Subcutaneous emphysema still remains in both supraclavicular regions with showing interval improvement from the previous CT chest 03/25/2021 the endotracheal tube and central line remain in satisfactory position as described on the previous report. IMPRESSION: Marked interval and rather rapid resolution of the large right sided tension pneumothorax Dictated by: Dr. Denny Perez MD 03/26/2021 10:39 Dr. Denny Perez MD in [facility] 03/26/2021 10:39
--- NOTE | 2021-03-26 10:49 | ECG_ITS ---
APPROVED REPORT Exam: Resting ECG HR:166 bpm ECG Measurements Heart Rate 166 AXES QRSd 86 QRS 11 QT 248 T 13 QTc 412 Conclusion Atrial fibrillation with rapid ventricular response Low voltage QRS Cannot rule out Anterior infarct, age undetermined Abnormal ECG Electronically signed by : Avery Pearson MD 03/29/2021 20:59:33
--- NOTE | 2021-03-26 10:50 | PC.NURSE ---
contacted cardiology (Kelsy Mcarthur CLINICAL TECH) regarding sustained HR 170-180s. Kelsy Mcarthur reports that cardiology has signed off at this time. Contacted Dr. Ying, who ordered a STAT EKG, an EEG, and to restart Dilt gtt. Orders entered for EKG and EEG. RT (Nano) notified. Pharmacy ([facility]) notified.
--- NOTE | 2021-03-26 10:55 | PC.NURSE ---
and daughter @ [facility]. is upset and asked to speak to administration. Notified senior manager (Yang Villalobos RN) of her request. While I was in the room, Dr. Estes called to inform me that he and Dr. Ying will meet with family today @ 12:30pm in conference room to have a family meeting and discuss pt's care. Again, I updated senior manager (Ynag Villalobos RN) and the family that are at [facility].
--- NOTE | 2021-03-26 11:03 | HMH.PULMPN ---
Internal Medicine - PN: Subj *Date: 03/26/21 *Time: 11:36 Interval history: Patient intubated. Appears comfortable. Continues to receive fentanyl 25 mcg that was discontinued. Exam - Constitutional Constitutional:: Absent: comfortable, healthy appearing - HENMT Exam HENMT: Present: normocephalic - Eye Exam Comment:: Unequal pupils right greater than left sluggish reaction to light - Neck Exam Comments: Subcutaneous crepitus noted predominantly on the left side of the neck - Respiratory Exam Respiratory:: Present: respiratory distress, decreased breath sounds, crackles, rhonchi. Absent: lungs clear - Cardiovascular Exam Cardiac:: Present: S1, S2 - GI Exam GI:: Present: soft. Absent: distended - Skin Exam Skin: Present: no rash - Neurological Exam Neurological: Absent: alert, awake, normal cognition, reflexes normal - Extremities Exam Extremities: Present: no cyanosis, no clubbing, edema Assessment and Plan (1) Pneumonia due to COVID-19 virus Status: Acute Category: Medical Code(s): U07.1 - COVID-19; J12.82 - Pneumonia due to coronavirus disease 2019 (2) Acute respiratory failure with hypoxia Status: Acute Category: Medical Code(s): J96.01 - Acute respiratory failure with hypoxia (3) On mechanically assisted ventilation Status: Acute Category: Medical Code(s): Z99.11 - Dependence on respirator [ventilator] status (4) Cardiac arrhythmia Status: Acute Qualifiers: Arrhythmia type: ventricular fibrillation Qualified Code(s): I49.01 - Ventricular fibrillation Category: Medical Code(s): I49.9 - Cardiac arrhythmia, unspecified (5) Hypotension Status: Acute Category: Medical Code(s): I95.9 - Hypotension, unspecified (6) COVID-19 Status: Acute Category: Medical Code(s): U07.1 - COVID-19 (7) Hyperlipidemia Status: Chronic Category: Medical Code(s): E78.5 - Hyperlipidemia, unspecified (8) Hypertension Status: Chronic Category: Medical Code(s): I10 - Essential (primary) hypertension (9) Type 2 diabetes mellitus Status: Chronic Category: Medical Code(s): E11.9 - Type 2 diabetes mellitus without complications (10) DVT (deep venous thrombosis) Status: Acute Category: Medical Code(s): I82.409 - Acute embolism and thrombosis of unspecified deep veins of unspecified lower extremity (11) Acute kidney injury Status: Acute Category: Medical Code(s): N17.9 - Acute kidney failure, unspecified (12) Cerebral infarction Status: Acute Category: Medical Code(s): I63.9 - Cerebral infarction, unspecified (13) Cerebral edema Status: Acute Category: Medical Code(s): G93.6 - Cerebral edema - Assessment and plan all Dx Assessment and Plan for all problems:: #Acute on chronic hypoxic respiratory failure: #COVID-19 pneumonia: Mr. Vitale is a 55-year-old female no prior respiratory complaints, yet to be vaccinated admitted to the hospital with COVID-19 pneumonia requiring high flow nasal cannula oxygen supplementation and pulmonary was called for further management. Patient on admission was initiated on remdesivir dexamethasone along with barcitinib however eventually he is remdesivir and barcitinib were discontined to worsening renal function and transaminitis. Patient current hospital course was also complicated by worsening respiratory distress needing intubation and mechanical ventilatory support and since then patient has been on high vent settings, this morning he is on a PEEP of 16 FiO2 100% and rate of 26. His lung compliance has been worse since then with high peak and plateau pressures. ABG showed slightest improvement. We have attempted to wean his FiO2 and PEEP , with worsened saturations. This morning patient noted to have air leak and endotracheal tube was exchanged this was complicated by hypoxic episode and patient was bagged. Patient also noted to have pneumothorax and surgery was called to place a right-sided c
[2021-03-26 11:10] LABS: Calcium 4.6 mg/dl (8.4-10.2)
--- NOTE | 2021-03-26 11:24 | PC.NURSE ---
HR sustains 170s. 12 lead EKG reveals Afib RVR. Diltiazem gtt started @ 10mg/hr per Dr. Ying.
--- NOTE | 2021-03-26 11:36 | PC.NURSE ---
EEG at [facility] by RT (Yang Zee). No family members at [facility] at this time.
--- NOTE | 2021-03-26 11:41 | PC.NURSE ---
late entry for re-intubation procedure this morning: pt hooked up to ZOLL pads during procedure 0928: Dr. Estes, RT (Yang Zee and Iker Starks), pharmacy ([facility]ud[facility] Vicente) and myself @ [facility] to assist with re-intubation over bouge tube secondary to ET cuff leak. #7.5 ET tube removed over bouge and #8 ET tube placed over bouge. Tube is now 25cm @ the lip. 0930: Fentanyl gtt discontinued per Dr. Estes 0934: BP 85/58. Levo gtt restarted @ 10mcg/min per Dr. Estes 0935: Rocuronium 50mg given by Dr. Estes 0938: 1amp Bicarb given per Dr. Estes. BP 103/57. 0941: Bicarb gtt started @ 150mL/hr per Dr. Estes 0942: 1amp Ca Cl given per Dr. Estes 0943: BP 143/67. Levo gtt decreased to 5mcg/min 0954: Dr. Estes placed pigtail chest tube in right upper chest. 0958: radiology notified of STAT CXR 1000: Levo gtt OFF. BP 174/106. 1003: Dr. Crespo @ [facility] to insert 2nd chest tube on right side. 1007: Dr. Crespo inserted 24fr chest tube on right side. Dr. Estes discontinued the pigtail chest tube that he inserted. 1020: radiology @ [facility]
--- NOTE | 2021-03-26 11:57 | PC.NURSE ---
HR continues in 150s-160s. Diltiazem gtt increased to 15mg/hr. EEG continues @ [facility].
--- NOTE | 2021-03-26 12:23 | P.OP_ITS ---
Date of procedure: 03/26/21 Pre-op Diagnosis:: Right-sided pneumothorax Post-op Diagnosis:: Same Procedure performed:: Placement of 24 Indonesian right thoracostomy tube Surgeon:: Randell Crespo MD Anesthesia: local Estimated blood loss (mL): 5 Clinical Note:: Patient is a 55-year-old male mechanically ventilated with Covid pneumonia and multiorgan dysfunction on high ventilator settings. Surgery was called stat to the room due to development of large right pneumothorax. This showed component of tension pneumothorax with mediastinal shift on chest x-ray. Operative findings:: Right-sided pneumothorax Operative note:: Right chest was prepped and draped in the standard surgical fashion. Local anesthetic was infiltrated in the right anterior axillary line. Skin incision was made. Dissection was carried down through subcutaneous tissues and over the rib. Intercostal space was entered. There was good martino of air. 24 Indonesian chest tube was inserted into the right pleural space under semisterile conditions. It was secured with a 0 Surgilon horizontal mattress suture. Antibiotic dressing followed by clean dry sterile dressing was applied. Chest tube was attached to the Pleur-evac which revealed positive air leak. Post procedure chest x-ray revealed reexpansion and resolution of tension pneumothorax. Condition: critical Disposition: no change Complications:: None immediately apparent
[2021-03-26 12:58] LABS: Activated Partial Thrombo Time 77.8 seconds (22.8-30.6)
--- NOTE | 2021-03-26 13:11 | PC.NURSE ---
per Dr. Ying: he wishes for cardiology to sign back on to manage cardiac issues. I called cardiology office (Antonella) and updated her on POC. She relays that Rock and Christianne are in the office today and that she will notify them of Dr. Ying's request. I informed her that pt went back into Afib RVR with rate 170s and that pt is back on a Diltiazem gtt. She verbalized understanding.
--- NOTE | 2021-03-26 13:14 | PC.NURSE ---
Received call from lab (Nereyda) with critical PTT 77.8. Name and verified. Dr. Ying and Dr. Estes notified.
--- NOTE | 2021-03-26 13:19 | PC.NURSE ---
received call from [facility]. He will consult with Dr. Maurice from a cardiac standpoint.
[2021-03-26 13:32] LABS: Vancomycin,Trough 30.1 ug/mL (5.0-10.0)
--- NOTE | 2021-03-26 13:33 | PC.NURSE ---
Spoke to Ana in the lab regarding pt's vanc trough of 30.1-verified name, and room number. Passed information onto pt's primary RN, Yazmin Santana
--- NOTE | 2021-03-26 13:37 | HMH.PNCARD ---
Subjective Date: 03/26/21 Time: 13:37 Principal diagnosis: A. fib, COVID, multi-organ failure Interval history: 55-year-old white male with Covid pneumonia, CVA with cerebral edema and EEG showing minimal function and multiorgan failure currently on the ventilator. Patient condition has steadily worsened during his course in the hospital. Initially we were seeing the patient for management of atrial fibrillation which had converted back to sinus rhythm on Cardizem drip 3 days ago. Patient suffered acute pneumothorax today with subsequent chest tube placement for treatment. He has returned to atrial fibrillation likely due to that incident. Cardiology has been asked to manage the Cardizem drip. Current heart rate is 120-140 bpm on Cardizem 15 mg/h. Blood pressure is hovering around 100 mmHg. He is on no pressors at this time. The nurse informs me that argatroban will be restarted due to the patient's HIT history. INR today is almost 8 with evidence of liver . Creatinine is near 8 also with persistent hypocalcemia which is now being treated with a ongoing calcium infusion. Exam Vital signs and Labs for Last 24 Hours: Temp Pulse Resp BP Pulse Ox 96.1 F L 164 H 31 H 139/72 95 03/26/21 08:00 03/26/21 11:00 03/26/21 11:00 03/26/21 11:00 03/26/21 11:00 Laboratory Results - last 24 hr 03/22/21 09:22: ABG Sodium 139, ABG Potassium 5.5 H, ABG Chloride 106, ABG Lactate 14.4 H, Arterial Blood Potassium 5.5 H, Arterial Blood Chloride 106 03/24/21 09:04: ABG Potassium 4.8, ABG Chloride 100, Arterial Blood Potassium 4.8, Arterial Blood Chloride 100, Arterial Blood Ionized Calcium [employer] Product Engineer 03/25/21 13:30: Sodium 138, Potassium 5.1, Chloride 95 L, Carbon Dioxide 29, Anion Gap 19.1 H, BUN 105 H*, Creatinine 7.10 H, Estimated Creat Clear 16, Estimated GFR 8 L*, Est GFR ( Amer) 10 L*, Glucose 305 H, Calcium 4.7 L* 03/25/21 15:40: Sodium 139, Potassium 5.1, Chloride 95 L, Carbon Dioxide 28, Anion Gap 21.1 H, BUN 109 H*, Creatinine 7.20 H, Estimated Creat Clear 16, Estimated GFR 8 L*, Est GFR ( Amer) 10 L*, Glucose 282 H, Calcium 4.8 L* 03/25/21 16:54: POC Glucose 271 H 03/25/21 17:40: Sodium 139, Potassium 5.2 H, Chloride 95 L, Carbon Dioxide 28, Anion Gap 21.2 H, BUN 109 H*, Creatinine 7.30 H, Estimated Creat Clear 16, Estimated GFR 8 L*, Est GFR ( Amer) 10 L*, Glucose 277 H, Calcium 4.7 L* 03/25/21 17:40: APTT 84.8 H* 03/25/21 19:18: Sodium 141, Potassium 5.1, Chloride 97 L, Carbon Dioxide 28, Anion Gap 21.1 H, BUN 112 H*, Creatinine 7.30 H, Estimated Creat Clear 16, Estimated GFR 8 L*, Est GFR ( Amer) 10 L*, Glucose 259 H, Calcium 4.7 L* 03/25/21 21:11: POC Glucose 252 H 03/25/21 21:12: Sodium 141, Potassium 5.1, Chloride 99, Carbon Dioxide 27, Anion Gap 20.1 H, BUN 115 H*, Creatinine 7.60 H, Estimated Creat Clear 15, Estimated GFR 8 L*, Est GFR ( Amer) 9 L*, Glucose 257 H, Calcium 4.6 L* 03/26/21 00:08: APTT 82.0 H* 03/26/21 03:56: APTT 82.2 H* 03/26/21 05:07: POC Glucose 236 H 03/26/21 06:36: Sodium 143, Potassium 5.2 H, Chloride 100, Carbon Dioxide 28, Anion Gap 20.2 H, BUN 121 H*, Creatinine 8.10 H, Estimated Creat Clear 15, Estimated GFR 7 L*, Est GFR ( Amer) 8 L*, Glucose 258 H, Calcium 4.6 L*, Total Bilirubin 2.5 H, AST 481 H* D, ALT 928 H*, Alkaline Phosphatase 166 H, Total Protein 4.5 L, Albumin 2.0 L D, Globulin 2.5, Albumin/Globulin Ratio 0.8 L 03/26/21 06:40: Magnesium 2.3 D 03/26/21 08:00: APTT 81.0 H* 03/26/21 08:00: PT 70.8 H, INR 6.92 H 03/26/21 08:07: Specimen Source Left radial, O2 % 100, ABG pH 7.20 L*, ABG pCO2 65.1 H, ABG pO2 80.3, ABG HCO3 24.8, ABG Total CO2 26.8, ABG O2 Saturation 92, ABG Base Excess -3.3 L, Pardeep Test acceptable, Vent Rate 26, Tidal Volume 450, PEEP 16 03/26/21 12:20: Vancomycin Trough 30.1 H 03/26/21 12:20: APTT 77.8 H* I & O for Last 24 hours: Intake & Output 03/24/21 03/25/21 03/26/21 03/27/21 11:59 11:59 11:59 11:59 Intake Total 5554.418 / 5554.418 5952.89 / 5952.89 3028
--- NOTE | 2021-03-26 13:57 | PC.NURSE ---
12fr OG inserted without difficulty. Gastric bubble auscultated in LUQ when air inserted. Kayexelate given via OG. Argatroban started @ 1mcg/kg/min (6mL/hr). Bicarb gtt discontinued per Dr. Estes. Eleazar gtt on standby per [facility] with orders to keep SBP 100. [facility] ordered to increase Diltiazem gtt to 20mg/hr. HR 120s currently. BP 113/69.
--- NOTE | 2021-03-26 14:15 | PC.NURSE ---
tubefeeds started @ 10mL/hr per Dr. Estes. Will enter nutrition consult. Per Dr. Estes, goal rate of 30mL/hr.
--- NOTE | 2021-03-26 14:30 | PC.NURSE ---
BP 88/56 (68). Eleazar gtt started @ 30mcg/min per [facility].
[2021-03-26 15:00] LABS: Chloride 102 mmol/L (98-107); Sodium 145 mmol/L (136-145)
--- NOTE | 2021-03-26 15:01 | DIET.NUTRFU ---
Nutrition consult received to initiate enteral nutrition. Recommendations and order already initiated per Dr. Estes for Pulmocare at 10ml/h advancing by 10ml/h q 8h as tolerated to goal rate of 30ml/h. Pt currently receiving IVF at 50ml/h, recommend minimal water flushes of 30-60ml at GRV checks. Slow and low advancement as tolerated important, pt high risk re-feeding syndrome. Will monitor pt tolerance, renal labs and electrolytes, MAP, meds, fluids closely to alter regimen as indicated. This regimen provides 1080kcal, 45g protein, 76g cho, 67g fat, and 565ml free water.
[2021-03-26 15:03] LABS: Anion Gap 23.7 mEq/L (5-15); Carbon Dioxide 25 mmol/L (22.0-30.0); Potassium 5.7 mmoL/L (3.5-5.1)
[2021-03-26 15:04] LABS: Glucose 318 mg/dl (74-100)
[2021-03-26 15:10] LABS: Creatinine Clearance Estimated 14 mL/min (50-200); Estimated Glomerular Filt Rate 7 ml/min (>60); GFR (African American) 8 ML/MIN (>60)
[2021-03-26 15:26] LABS: Blood Urea Nitrogen 130 mg/dl (9-20)
--- NOTE | 2021-03-26 15:26 | PC.NURSE ---
received call from lab (Misty) with critical results: BUN 130, Cr 8.60, and Ca 5.2. Dr. Estes notified.
[2021-03-26 15:27] LABS: Calcium 5.2 mg/dl (8.4-10.2)
[2021-03-26 16:35] LABS: POC Glucose,Bedside 312 (70-110)
[2021-03-26 17:01] LABS: Activated Partial Thrombo Time 96.2 seconds (22.8-30.6)
--- NOTE | 2021-03-26 17:05 | PC.NURSE ---
received call from Ra with [facility] reporting that PTT 96 and to HOLD Argatroban gtt. Argatroban gtt turned OFF at this time. Dr. Ying @ [facility] rounding and has been updated.
--- NOTE | 2021-03-26 18:20 | PC.NURSE ---
pt converted to NSR with rate 76. EKG ordered. RT (Viktoria Galindo) @ [facility]. Updated Dr. Maurice.
--- NOTE | 2021-03-26 18:27 | ECG_ITS ---
APPROVED REPORT Exam: Resting ECG HR:76 bpm ECG Measurements Heart Rate 76 AXES SC 146 P 51 QRSd 80 QRS 19 QT 422 T 47 QTc 474 Conclusion Normal sinus rhythm Low voltage QRS Cannot rule out Anterior infarct, age undetermined Abnormal ECG Electronically signed by : Avery Pearson MD 03/29/2021 20:58:18
[2021-03-26 18:35] LABS: Chloride 105 mmol/L (98-107); Potassium 5.5 mmoL/L (3.5-5.1); Sodium 147 mmol/L (136-145)
--- NOTE | 2021-03-26 18:36 | PC.NURSE ---
per Dr. Maurice: continue Dilt gtt @ 20mg/hr. EKG confirmed NSR with rate 76.
[2021-03-26 18:38] LABS: Anion Gap 28.5 mEq/L (5-15); Carbon Dioxide 19 mmol/L (22.0-30.0); Glucose 289 mg/dl (74-100)
[2021-03-26 18:45] LABS: Creatinine Clearance Estimated 14 mL/min (50-200); Estimated Glomerular Filt Rate 6 ml/min (>60); GFR (African American) 8 ML/MIN (>60)
[2021-03-26 19:39] LABS: Blood Urea Nitrogen 129 mg/dl (9-20)
[2021-03-26 19:40] LABS: Calcium 5.5 mg/dl (8.4-10.2)
--- NOTE | 2021-03-26 21:13 | PC.NURSE ---
1931 received call from arcelia in lab regarding critical results. dr. servin paged and notified at 1950 of critical lab values. no new orders received.
--- NOTE | 2021-03-26 21:32 | PC.NURSE ---
2030 dr. garcia notified of heart rate 80 and nsr as well as decreasing bp with increase in trino. new order to decrease cardizem drip to 10 mg/hr.
--- NOTE | 2021-03-26 21:34 | PC.NURSE ---
dr. servinpaged regarding trending lower bp and trending increase in trino,new orders received.
[2021-03-27] VITALS (40 sets, daily range): BP systolic 71–137; BP diastolic 18–58; PULSE 57–93; RESP 28–40; TEMP 36.6–37.2; O2SAT 95–100; BMI 36.2
[2021-03-27 00:51] LABS: POC Glucose,Bedside 266 (70-110)
--- NOTE | 2021-03-27 01:05 | PC.NURSE ---
1999 blood pressure decreasing trino drip increased to 50. 2014 blood pressure continues to drop trino drip increased to 75 2029 blood pressure remaining lower than parameters. trino increased to 125 and cardizem decreased to 10 mg. 2099 blood pressure remaining lower than parameters. trino increased to 150. 2129 dr. servin paged regarding trending decrease in blood pressure and almost max dose of levophed. heart rate has remained nsr at 80, new order to restart levophed if needed at low dose. 2129 levophed started at 5 mcq. 2199 trino drip decreased to 100 mcq/min 2229 trino drip decreased to 75mcq/min blood pressures at sustaining within parameters. court recording monitor continues to show sr in the 80s.
[2021-03-27 03:08] LABS: Activated Partial Thrombo Time 85.8 seconds (22.8-30.6)
--- NOTE | 2021-03-27 03:11 | PC.NURSE ---
received call from peter at [facility] with aptt results, argatroban continues to be held
[2021-03-27 05:32] LABS: POC Glucose,Bedside 266 (70-110)
--- NOTE | 2021-03-27 06:27 | PC.NURSE ---
shift6 summary pupils unreactive and equal, no corneal reflex or gag reflex. levophed remains at 5 mcq, trino at 50 mcq and cardizem at 10 mg. no urine output. 3 plus edema. right lobe markedly more decreased than left. ct to 40 cm suction. dressing has been reinforced 3 x this shift. dressing changed on left arm due to weeping and sloughing of skin. blister now on left lower extremity
[2021-03-27 06:34] LABS: Alanine Aminotransferase 603 U/L (12-78); Albumin Level 1.7 g/dl (3.5-5.0); Albumin/Globulin Ratio 0.8 (1.1-1.8); Alkaline Phosphatase 188 U/L (38-126); Anion Gap 25.5 mEq/L (5-15); Aspartate Amino Transferase 266 U/L (17-59); Bilirubin,Total 2.6 mg/dl (0.2-1.3); Carbon Dioxide 21 mmol/L (22.0-30.0); Chloride 108 mmol/L (98-107); Globulin 2.2 g/dL (1.3-3.2); Glucose 262 mg/dl (74-100); Potassium 5.5 mmoL/L (3.5-5.1); Sodium 149 mmol/L (136-145); Total Protein,Serum 3.9 g/dl (6.3-8.2)
[2021-03-27 06:41] LABS: Creatinine Clearance Estimated 15 mL/min (50-200); Estimated Glomerular Filt Rate 6 ml/min (>60); GFR (African American) 8 ML/MIN (>60)
[2021-03-27 06:45] LABS: Blood Urea Nitrogen 136 mg/dl (9-20)
[2021-03-27 06:47] LABS: Calcium 5.4 mg/dl (8.4-10.2)
--- NOTE | 2021-03-27 06:53 | PC.NURSE ---
dr. servin notified of critical lab values, no new orders
[2021-03-27 07:12] LABS: Basophils # 0.1 K/mm3 (0-0.2); Basophils % 0.3 % (0.1-2.0); Eosinophils % 0.1 % (0.1-12.0); Hemoglobin 9.4 g/dL (14.1-18.0); Lymphocytes # 0.5 K/mm3 (0.7-4.5); Mean Corpuscular HGB Conc 30.3 g/dL (31.8-35.4); Mean Corpuscular Hemoglobin 30.2 pg (27.0-31.2); Mean Corpuscular Volume 99.6 fl (80-94); Mean Platelet Volume 12.2 fl (7.4-10.4); Monocytes # 1.1 K/mm3 (0.1-1.0); Monocytes % 4.4 % (1.7-9.3); Neutrophils # 22.4 K/mm3 (1.8-7.8); Neutrophils % 93.1 % (37.0-80.0); Platelet Count 138 K/mm3 (142-424); Red Blood Count 3.11 M/mm3 (4.60-6.20); Red Cell Distribution Width 14.3 % (11.5-17.5)
[2021-03-27 07:18] LABS: MANUAL DIFFERENTIAL MANUAL DIFFERENTIAL (MANUAL DIFF)
[2021-03-27 07:32] LABS: Lymphocytes % 10 % (10-50); Monocytes % 8 % (2-9); Neutrophils % 80 % (42-76); Nucleated Red Blood Cells 1; Platelet Estimate Slight Decrease; RBC Morphology Normal; Total Cells Counted 100
--- NOTE | 2021-03-27 08:13 | XR_ITS ---
PROCEDURE INFORMATION: Exam: XR Chest Exam date and time: 03/27/2021 8:13 AM Age: 55 years old Clinical indication: Device placement; Shortness of breath; Patient HX: Patient is on a ventilator, he also has chest tube. He is covid positive. ; Additional info: Vent TECHNIQUE: Imaging protocol: XR of the chest. Views: 1 view. COMPARISON: CR XR CHEST PORTABLE 03/26/2021 10:04 AM FINDINGS: Tubes, catheters and devices: Stable right thoracostomy tube terminates in the right upper lobe.. Overlying EKG wires Lungs: Patchy bilateral opacities may represent multifocal pneumonia.. Pleural spaces: Small pneumothorax seen laterally.. Heart/Mediastinum: There may be small pneumomediastinum.. Bones/joints: Unremarkable. Soft tissues: Extensive subcutaneous emphysema . IMPRESSION: 1. Patchy bilateral opacities may represent multifocal pneumonia.. 2. Stable right thoracostomy tube terminates in the right upper lobe.. 3. Small pneumothorax seen laterally.. 4. There may be small pneumomediastinum.. 5. Extensive subcutaneous emphysema .
--- NOTE | 2021-03-27 08:13 | XR_ITS ---
PROCEDURE INFORMATION: Exam: XR Abdomen Exam date and time: 03/27/2021 8:13 AM Age: 55 years old Clinical indication: Bloating and other: Covid 19 positive; Additional info: Vent TECHNIQUE: Imaging protocol: XR of the abdomen. Views: Frontal supine view of the abdomen. 1 View. COMPARISON: CT ABDOMEN PELVIS WO CON 03/23/2021 2:30 PM FINDINGS: Tubes, catheters and devices: An enteric feeding tube is present, with its tip located in the stomach in good position. Gastrointestinal tract: No dilated bowel.. Bones/joints: Unremarkable. IMPRESSION: No dilated bowel.. An enteric feeding tube is present, with its tip located in the stomach in good position.
[2021-03-27 08:17] LABS: ABG Base Excess -9.2 mmol/L (-2.4-2.3); ABG HCO3 18.9 mmhg (22.0-26.0); ABG Oxygen Saturation 90 % (90-100); ABG PCO2 49.9 mmhg (35.0-45.0); ABG PO2 73.5 mmhg (80-100); ABG TCO2 20.4 mmhg (23-27)
[2021-03-27 08:18] LABS: Allen's Test acceptable; Oxygen 100 %; PEEP 18; Source lr; Tidal Volume 450; Vent Rate 28
[2021-03-27 08:21] LABS: Lactate Arterial 6.3 mmol/L (0.4-2.0)
--- NOTE | 2021-03-27 08:40 | PC.NURSE ---
Tidal volume increased to [address] Estes.
--- NOTE | 2021-03-27 09:36 | HMH.ACPN2 ---
Internal Medicine - PN: Subj *Date: 03/27/21 *Time: 09:36 Interval history: He had some issues with hypotension overnight but blood pressure is now stabilized. Heart rhythm has converted to normal sinus Cardizem drip. This has been weaned to 10 mcg. No acute respiratory events overnight. His tube feedings are at the goal rate and he seems to be tolerating these. Exam Vital signs and Labs for Last 24 Hours: Temp Pulse Resp BP Pulse Ox 97.8 F 88 35 H 99/50 L 97 03/27/21 08:00 03/27/21 08:00 03/27/21 08:00 03/27/21 08:00 03/27/21 08:00 Laboratory Results - last 24 hr 03/24/21 18:20: Ionized Calcium 3.0 L 03/26/21 06:36: Calcium 4.6 L* 03/26/21 12:20: Vancomycin Trough 30.1 H 03/26/21 12:20: APTT 77.8 H* 03/26/21 14:31: Sodium 145, Potassium 5.7 H, Chloride 102, Carbon Dioxide 25, Anion Gap 23.7 H, BUN 130 H*, Creatinine 8.60 H, Estimated Creat Clear 14, Estimated GFR 7 L*, Est GFR ( Amer) 8 L*, Glucose 318 H D, Calcium 5.2 L* D 03/26/21 16:02: APTT 96.2 H* D 03/26/21 16:09: POC Glucose 312 H* 03/26/21 18:26: Sodium 147 H, Potassium 5.5 H, Chloride 105, Carbon Dioxide 19 L, Anion Gap 28.5 H, BUN 129 H*, Creatinine 8.80 H, Estimated Creat Clear 14, Estimated GFR 6 L*, Est GFR ( Amer) 8 L*, Glucose 289 H, Calcium 5.5 L 03/26/21 18:26: APTT 99.0 H* 03/26/21 20:45: POC Glucose 266 H 03/27/21 02:04: APTT 85.8 H* D 03/27/21 05:23: POC Glucose 266 H 03/27/21 06:00: Sodium 149 H, Potassium 5.5 H, Chloride 108 H, Carbon Dioxide 21 L, Anion Gap 25.5 H, BUN 136 H*, Creatinine 8.70 H, Estimated Creat Clear 15, Estimated GFR 6 L*, Est GFR ( Amer) 8 L*, Glucose 262 H, Calcium 5.4 L, Total Bilirubin 2.6 H, AST 266 H D, ALT 603 H*, Alkaline Phosphatase 188 H, Total Protein 3.9 L, Albumin 1.7 L D, Globulin 2.2, Albumin/Globulin Ratio 0.8 L 03/27/21 06:00: WBC 24.0 H* D, RBC 3.11 L, Hgb 9.4 L, Hct 31.0 L, MCV 99.6 H, MCH 30.2, MCHC 30.3 L, RDW 14.3, Plt Count 138 L D, MPV 12.2 H, Neut % (Auto) 93.1 H, Lymph % (Auto) 2.0 L, [place] % (Auto) 4.4, Eos % (Auto) 0.1, Baso % (Auto) 0.3, Neut # (Auto) 22.4 H, Lymph # (Auto) 0.5 L, [place] # (Auto) 1.1 H, Eos # (Auto) 0.0, Baso # (Auto) 0.1, Total Counted 100, Neutrophils % (Manual) 80 H, Band Neutrophils % 2.0, Lymphocytes % (Manual) 10, Monocytes % (Manual) 8, Nucleated RBCs 1, Platelet Estimate Slight decrease, RBC Morphology Normal 03/27/21 06:14: APTT 86.0 H* 03/27/21 08:05: ABG Lactate 6.3 H 03/27/21 08:05: Specimen Source lr, O2 % 100, ABG pH 7.20 L*, ABG pCO2 49.9 H, ABG pO2 73.5 L, ABG HCO3 18.9 L, ABG Total CO2 20.4 L, ABG O2 Saturation 90, ABG Base Excess -9.2 L, Pardeep Test acceptable, Vent Rate 28, Tidal Volume 450, PEEP 18 I & O for Last 24 hours: Intake & Output 03/24/21 03/25/21 03/26/21 03/27/21 11:59 11:59 11:59 11:59 Intake Total 5554.418 / 5554.418 5952.89 / 5952.89 3286 / 3286 4795 / 4795 Output Total 793 / 793 322 / 322 Balance 5549.418 / 5549.418 5159.89 / 5159.89 3271 / 3271 4473 / 4473 Weight 209 lb 1 oz 212 lb 13.701 oz 222 lb 8 oz 231 lb Narrative: He remains on the vent with FiO2 100%, tidal volume 450, PEEP 18 and rate of 24. He is off all sedation and is unresponsive. He appears in no distress. Lungs with coarse breath sounds. Heart is regular. Noted with anasarca. Subcutaneous emphysema palpable over the anterior chest. Assessment and Plan (1) Pneumonia due to COVID-19 virus Status: Acute Category: Medical Code(s): U07.1 - COVID-19; J12.82 - Pneumonia due to coronavirus disease 2018 (2) Acute respiratory failure with hypoxia Status: Acute Category: Medical Code(s): J96.01 - Acute respiratory failure with hypoxia (3) On mechanically assisted ventilation Status: Acute Category: Medical Code(s): Z99.11 - Dependence on respirator [ventilator] status (4) Cardiac arrhythmia Status: Acute Qualifiers: Arrhythmia type: ventricular fibrillation Qualified Code(s): I49.01 - Ventricular fibrillation Ca
--- NOTE | 2021-03-27 09:59 | HMH.GSPN ---
Subjective Narrative: Patient remains mechanically ventilated on FiO2 of 100% with PEEP of 18. Chest tube has some serosanguineous drainage with positive air leak. Chest x-ray reveals good tube placement with tiny residual pneumothorax with possible pneumomediastinum Progress Note: A&P (1) Pneumonia due to COVID-19 virus Status: Acute (2) Acute respiratory failure with hypoxia Status: Acute (3) On mechanically assisted ventilation Status: Acute (4) Cardiac arrhythmia Status: Acute (5) Hypotension Status: Acute (6) COVID-19 Status: Acute (7) Hyperlipidemia Status: Chronic (8) Hypertension Status: Chronic (9) Type 2 diabetes mellitus Status: Chronic (10) DVT (deep venous thrombosis) Status: Acute (11) Acute kidney injury Status: Acute (12) Cerebral infarction Status: Acute (13) Cerebral edema Status: Acute Assessment and Plan for All Diagnoses:: Continue chest tube to suction. Exam Vital signs and Labs for Last 24 Hours: Temp Pulse Resp BP Pulse Ox 97.8 F 87 35 H 98/49 L 96 03/27/21 08:00 03/27/21 09:00 03/27/21 08:00 03/27/21 09:00 03/27/21 09:00 Laboratory Results - last 24 hr 03/24/21 18:20: Ionized Calcium 3.0 L 03/26/21 06:36: Calcium 4.6 L* 03/26/21 12:20: Vancomycin Trough 30.1 H 03/26/21 12:20: APTT 77.8 H* 03/26/21 14:31: Sodium 145, Potassium 5.7 H, Chloride 102, Carbon Dioxide 25, Anion Gap 23.7 H, BUN 130 H*, Creatinine 8.60 H, Estimated Creat Clear 14, Estimated GFR 7 L*, Est GFR ( Amer) 8 L*, Glucose 318 H D, Calcium 5.2 L* D 03/26/21 16:02: APTT 96.2 H* D 03/26/21 16:09: POC Glucose 312 H* 03/26/21 18:26: Sodium 147 H, Potassium 5.5 H, Chloride 105, Carbon Dioxide 19 L, Anion Gap 28.5 H, BUN 129 H*, Creatinine 8.80 H, Estimated Creat Clear 14, Estimated GFR 6 L*, Est GFR ( Amer) 8 L*, Glucose 289 H, Calcium 5.5 L 03/26/21 18:26: APTT 99.0 H* 03/26/21 20:45: POC Glucose 266 H 03/27/21 02:04: APTT 85.8 H* D 03/27/21 05:23: POC Glucose 266 H 03/27/21 06:00: Sodium 149 H, Potassium 5.5 H, Chloride 108 H, Carbon Dioxide 21 L, Anion Gap 25.5 H, BUN 136 H*, Creatinine 8.70 H, Estimated Creat Clear 15, Estimated GFR 6 L*, Est GFR ( Amer) 8 L*, Glucose 262 H, Calcium 5.4 L, Total Bilirubin 2.6 H, AST 266 H D, ALT 603 H*, Alkaline Phosphatase 188 H, Total Protein 3.9 L, Albumin 1.7 L D, Globulin 2.2, Albumin/Globulin Ratio 0.8 L 03/27/21 06:00: WBC 24.0 H* D, RBC 3.11 L, Hgb 9.4 L, Hct 31.0 L, MCV 99.6 H, MCH 30.2, MCHC 30.3 L, RDW 14.3, Plt Count 138 L D, MPV 12.2 H, Neut % (Auto) 93.1 H, Lymph % (Auto) 2.0 L, [place] % (Auto) 4.4, Eos % (Auto) 0.1, Baso % (Auto) 0.3, Neut # (Auto) 22.4 H, Lymph # (Auto) 0.5 L, [place] # (Auto) 1.1 H, Eos # (Auto) 0.0, Baso # (Auto) 0.1, Total Counted 100, Neutrophils % (Manual) 80 H, Band Neutrophils % 2.0, Lymphocytes % (Manual) 10, Monocytes % (Manual) 8, Nucleated RBCs 1, Platelet Estimate Slight decrease, RBC Morphology Normal 03/27/21 06:14: APTT 86.0 H* 03/27/21 08:05: ABG Lactate 6.3 H 03/27/21 08:05: Specimen Source lr, O2 % 100, ABG pH 7.20 L*, ABG pCO2 49.9 H, ABG pO2 73.5 L, ABG HCO3 18.9 L, ABG Total CO2 20.4 L, ABG O2 Saturation 90, ABG Base Excess -9.2 L, Pardeep Test acceptable, Vent Rate 28, Tidal Volume 450, PEEP 18 I & O for Last 24 hours: Intake & Output 03/24/21 03/25/21 03/26/21 03/27/21 11:59 11:59 11:59 11:59 Intake Total 5554.418 / 5554.418 5952.89 / 5952.89 3286 / 3286 4795 / 4795 Output Total 793 / 793 322 / 322 Balance 5549.418 / 5549.418 5159.89 / 5159.89 3271 / 3271 4473 / 4473 Weight 209 lb 1 oz 212 lb 13.701 oz 222 lb 8 oz 231 lb
--- NOTE | 2021-03-27 10:15 | PC.NURSE ---
Addendum entered by Conchita Acuña RN 03/27/21 14:14: 0837 - TV increased to 470 per orders from Catherine Camacho(RT) made changes Original Note: 0806 - Spoke to Dr. Estes @ this time. Orders for CXR, KUB, BCX, 200 IV Lasix 0816 - called @ this time, updated on plan of care. 0853 - Spoke to , no bed available 0929 - PTT critical result called to Wilber Rodríguez
[2021-03-27 11:15] LABS: POC Glucose,Bedside 245 (70-110)
[2021-03-27 13:00] LABS: Lactate Arterial 7.4 mmol/L (0.4-2.0)
--- NOTE | 2021-03-27 16:37 | PC.NURSE ---
No acute changes. Pupils remain 1 mm, unreactive, equal. No reflexes noted. Remains vented, AC 100, 470, 18, 28. ETT moved to midline position this shift. Oral care provided Q2H. Minimal blood tingued secretions suctioned from oral cavity. HR regular. +3 pitting gen edema noted. Pt turned and repositioned Q2H, heels floated, BUE elevated on pillows. CT remains to scution, 40 cm. Dressing to (R) chest wall reinforced once this shift. Dressingt to upper right chest c/d/i. Dressing to DONNELL changed. Vazquez cath to drain @ bedside. No UOP this shift, MD aware. No BM this shift. and daughter have both been at bedside today. Family updated on plan of care.
[2021-03-27 17:28] LABS: POC Glucose,Bedside 202 (70-110)
[2021-03-27 20:17] LABS: POC Glucose,Bedside 125 (70-110)
--- NOTE | 2021-03-27 23:27 | PC.NURSE ---
2245 heart rate dropped from high 70s to low sixties, qrs increased from .06 to .12. cardizem drip stopped. blood pressure dropped to 44 systolic. levo increased to 20 mcq and trino increased up to 180 mcq. notified of patient condition deterioration.
[2021-03-28] VITALS: BP 111/39; PULSE 59; PULSE 63; RESP 30; TEMP 37.3; O2SAT 98
--- NOTE | 2021-03-28 00:24 | PC.NURSE ---
2315 family began arriving to floor. 2330 family had group discussion regarding code status with rn present. all questions answered. absence of corneal reflex demonstrated. 2350 family together decided to make patient a dnr, form signed. family made comfortable at bedside. dr. servin notified in change in code status
[2021-03-28 00:39] LABS: POC Glucose,Bedside 85 (70-110)
[2021-03-28 01:00] VITALS: BP 57/29; PULSE 47; RESP 28; O2SAT 99
--- NOTE | 2021-03-28 01:56 | PC.NURSE ---
heart rate continues to drop, pulse thready
--- NOTE | 2021-03-28 02:33 | P.DN_ITS ---
Pronouncement Note - Date and Time of Date of : 03/28/21 Time of : 02:13 - PCOD Preliminary cause of : Acute respiratory failure - Additional Data Confirmation of : no pulse, no respirations, pupils fixed and dilated Family: at bedside Attending/PCP notified?: Yes Attending physician: Juanito Ying MD Was code activated?: No Autopsy requested?: No skeins yarn examiner notified?: No Organ bank notified?: Yes Advance directives: Yes
--- NOTE | 2021-03-28 03:31 | PC.NURSE ---
0213 patient youth nutritional monitor showed asystolie, pulse absent, physician at bedside. patient time of pronounced at 0213. family at bedside 0230 dr. servin notified of patient expiring tubes removed post mortem care performed 031 time of called to alessandra reference number [id number] patient has been ruled out sales representative consultant andrew sykes [address] [facility] notified of family request of services.
--- NOTE | 2021-03-28 04:19 | PC.NURSE ---
late entry shift summary received patient from off going nurse. 1930 levo at 5 mcq, trino at 50 mcq- systolic bp in the 80s. trino drip increased to 100 mcq. 1944 blood pressure remaining below ordered parameters levophed increased to 10 mcq 1999 sbp in the 70s levophed increased to 20 mcq 2014 sbp in the 150s levophed drip decreased to 15 mcq 2029 blood pressures very labile at this time. dr. servin notified of patient condition, no new orders received. 2100 blood pressures improved by continues to be below ordered parameters. trino drip increased to 125 mcq. 2199 blood pressure has been consistantly greater than ordered parameters. levophed decreased to 10 mcq.
--- NOTE | 2021-03-30 18:49 | HMH.DCSUM ---
General - General Admission date:: 03/18/21 <Juanito Ying - 05/17/21 17:48> 03/18/21 <Alicia Segovia - 03/30/21 19:50> Discharge date: 03/28/21 (pt ) <Alicia Segovia - 03/30/21 19:50> HPI HPI: Mr. Vitale is a 55-year-old male with a history of type 2 diabetes, hypertension, and hyperlipidemia. Patient did have a telehealth with Alicia Segovia on 03/16/2021 as a follow-up from an ER visit where he was diagnosed with Covid. He was weak and not eating and had had a dry cough. He was found to have pneumonia and she did set him up for a monoclonal antibody infusion. He presented to the emergency department for the infusion and upon arrival was found to be significantly hypoxic. He required a nonrebreather to maintain appropriate oxygen saturations. He was given Rocephin and Zithromax and admitted for further evaluation and treatment. Repeat chest x-ray did show progression of bilateral multifocal pneumonia. Of note, his had covid as well. <Alicia Segovia - 03/30/21 19:50> Hospital Course Hospital Course: On admission patient was started on Vapotherm. Covid protocol was initiated. CTA of the chest showed no pulmonary emboli. Patient stated that he felt better and sats were around 90%. He was seen by [facility] [employer], Dr. Estes. He was started on Rocephin and Zithromax along with remdesivir and dexamethasone 6 mg daily. He was also started on Barcitinib daily along with DVT prophylaxis. 03/19 he had no increased respiratory distress and no increased O2 requirements. He was able to eat. Patient did require the Ventimask over Vapotherm at maximum settings to maintain O2 sats in the low 90s. However with any exertion he would quickly desat with slow recovery. He denied chest pain. At this time he had maxed out on the Vapotherm and Ventimask. He was started on duo nebs. 03/21/2021 he felt better and looked better. He was able to eat breakfast. He remained on Vapotherm and the Ventimask. Sats remained 90 to 95% with the Vapotherm and mask. Dr. Ying spoke with his . 03/22/2021 At 0135 patient had increased respiratory distress with desats despite the use of BiPAP. He required intubation and was placed on the ventilator. 0545 the same AM he went into V. fib and was defibrillated and converted to a tachycardia felt to be atrial flutter. He was started on a Cardizem drip and was given bicarb. Patient at this time was in a combined metabolic and respiratory acidosis. Cardiology was consulted. Family was at the bedside and his critical condition was discussed. Patient did convert to sinus rhythm. He was hypotensive at this time and maxed out on Levophed drip. He was given one amp of epinephrine and then the patient was started on an epinephrine drip. Cardiac arrest was felt most likely secondary to his respiratory failure and hypoxemia. Cardiology was at this point participating in his care. Lower extremity Doppler was positive for DVT and patient was started on a heparin drip. He continued to be followed by pulmonology. Sputum culture on admission grew normal respiratory michael michael and MRSA PCR was negative. Blood gases after arrest showed a pH of 7.02, PCO2 of 40.7 consistent with significant metabolic acidosis with elevated lactate. Vancomycin was initiated as well as Zosyn for possible sepsis. He was sedated with propanol and fentanyl. On 03/23/2021 respiratory status and blood pressure remained fairly stable. Platelet count was low and bleeding was noted and thus heparin drip was stopped. At this time there was concern for decreased urinary output, decreased liver function and decreasing platelet count. He also had a dilated right pupil raising concern for stroke. Dr. Ying discussed the patient's condition with the and daughter giving them updates. At this time family expressed that they would like the patient transferred to a higher level of care. Dr. Ying began making ma
== END 2021-03-28 04:40 | disposition expired | DRG 207 ==
LOC: ER 13:30 → ICU 03-19 12:58 → 2ND 03-22 03:12
PROVIDERS: Emergency Medicine; Family Medicine; Internal Medicine Pulmonary Disease; Admitting Provider Family Medicine; Emergency Provider Family Medicine; PCP Family Medicine; Visit Provider Family Medicine
DX: U07.1 COVID-19 (principal); J12.82 Pneumonia due to coronavirus disease 2019; G93.6 Cerebral edema; I63.9 Cerebral infarction, unspecified; A41.9 Sepsis, unspecified organism; J93.0 Spontaneous tension pneumothorax; J96.01 Acute respiratory failure with hypoxia; R57.9 Shock, unspecified; E87.2 Acidosis; N17.9 Acute kidney failure, unspecified; I82.432 Acute embolism and thrombosis of left popliteal vein; I82.442 Acute embolism and thrombosis of left tibial vein; I10 Essential (primary) hypertension; E11.9 Type 2 diabetes mellitus without complications; Z79.84 Long term (current) use of oral hypoglycemic drugs; Z66 Do not resuscitate; F17.210 Nicotine dependence, cigarettes, uncomplicated; E78.5 Hyperlipidemia, unspecified; I49.01 Ventricular fibrillation; E87.5 Hyperkalemia; E83.51 Hypocalcemia; I48.91 Unspecified atrial fibrillation; K52.9 Noninfective gastroenteritis and colitis, unspecified; R74.01 Elevation of levels of liver transaminase levels; I46.9 Cardiac arrest, cause unspecified; D75.82 Heparin induced thrombocytopenia (HIT); T45.515A Adverse effect of anticoagulants, initial encounter
CPT/HCPCS: 31500 ×2; 32551; 94002; 36415; 70450; 71045; 71250; 71275; 74018; 74176; 76705; 80048; 80051; 80053; 80074; 80076; 80202; 81001; 82140; 82306; 82310; 82330; 82728; 82803; 82947; 82962; 83605; 83615; 83690; 83735; 83970; 84443; 84484; 85007; 85014; 85018; 85025; 85048; 85049; 85378; 85610; 85730; 86140; 86900; 86901; 87040; 87070; 87081; 87205; 93005; 93306; 93970; 94003; 94640; 94660; 94760; 94761; 95822; 96365; 96367; 99284; C1751; J0456; J0883; J2260; J2310; J2704; J3370; P9034; Q9967